=== PATIENT | female | born 1960 | race Caucasian/White ===

== ENCOUNTER 2021-07-08 11:32 | Observation (INO) | payer OTHER, SELFPAY ==
[2021-07-08] VITALS (8 sets, daily range): BP systolic 93–150; BP diastolic 55–82; PULSE 85–116; RESP 15–34; TEMP 36.6–36.8; O2SAT 95–100; BMI 35.2
--- NOTE | ~2021-07-08 | CT_ITS ---
EXAMINATION: CT BRAIN AND CT CERVICAL SPINE WITHOUT CONTRAST. CLINICAL INFORMATION: Seizure, fall hit head. Headache. COMPARISON: None TECHNIQUE: 5 mm thin axial and reformatted 2 mm thin sagittal coronal images of brain were obtained without contrast. Subsequently axial 3 mm thin and reformatted 2 mm thin sagittal and coronal images of cervical spine were obtained. DL 1232 FINDINGS: Brain: There is no acute intra-axial, extra-axial bleed, masses or midline shift. There is no acute infarction in evolution. Mulligan to white matter difference is maintained normal. The lateral ventricles are symmetrical in size and configuration without enlargement. Bone windows reveal no calvarial abnormality there is no scalp soft tissue abnormality. Bilateral paranasal sinuses and mastoid air cells are well-aerated. Cervical spine: On sagittal reconstructed images there is normal cervical lordosis. The vertebral heights, alignment and disc heights are normal no visible acute fracture, dislocation or subluxation seen. There is mild ventral spondylosis C4-C5, C5-C6 and C7-T1 disc levels. The craniovertebral junction and the C1-C2 alignment is normal. The prevertebral and paravertebral soft tissues are normal. The thyroid lobes are symmetric and normal. Bilateral submandibular and parotid glands are symmetrical and normal. The airway is widely patent. The lung apices are clear. CT/CT head/brain wo con IMPRESSION: No acute intracranial process seen. There is no acute fracture, dislocation or subluxation cervical spine. Mild cervical spondylosis.
--- NOTE | ~2021-07-08 | XR_ITS ---
EXAMINATION: XR RIBS, LEFT CLINICAL INFORMATION: Left-sided rib pain and cough. Covid positive. COMPARISON: None TECHNIQUE: 3 views of the left ribs were obtained. Chest 1 view FINDINGS: Chest: Lungs are clear. No consolidation, pneumothorax, or pleural effusion. The cardiomediastinal silhouette and pulmonary vasculature are normal. No gross bony abnormality seen. 2 views of left ribs reveal no visible fracture or bony abnormality. XR/XR ribs LT min 3V w CXR1V IMPRESSION: Unremarkable chest exam. Unremarkable left rib exam. No rib fractures seen.
--- NOTE | ~2021-07-08 | CT_ITS ---
EXAMINATION: CT BRAIN AND CT CERVICAL SPINE WITHOUT CONTRAST. CLINICAL INFORMATION: Seizure, fall hit head. Headache. COMPARISON: None TECHNIQUE: 5 mm thin axial and reformatted 2 mm thin sagittal coronal images of brain were obtained without contrast. Subsequently axial 3 mm thin and reformatted 2 mm thin sagittal and coronal images of cervical spine were obtained. DL 1232 FINDINGS: Brain: There is no acute intra-axial, extra-axial bleed, masses or midline shift. There is no acute infarction in evolution. Mulligan to white matter difference is maintained normal. The lateral ventricles are symmetrical in size and configuration without enlargement. Bone windows reveal no calvarial abnormality there is no scalp soft tissue abnormality. Bilateral paranasal sinuses and mastoid air cells are well-aerated. Cervical spine: On sagittal reconstructed images there is normal cervical lordosis. The vertebral heights, alignment and disc heights are normal no visible acute fracture, dislocation or subluxation seen. There is mild ventral spondylosis C4-C5, C5-C6 and C7-T1 disc levels. The craniovertebral junction and the C1-C2 alignment is normal. The prevertebral and paravertebral soft tissues are normal. The thyroid lobes are symmetric and normal. Bilateral submandibular and parotid glands are symmetrical and normal. The airway is widely patent. The lung apices are clear. CT/CT cervical spine wo con IMPRESSION: No acute intracranial process seen. There is no acute fracture, dislocation or subluxation cervical spine. Mild cervical spondylosis.
--- NOTE | 2021-07-08 11:43 | ECG_ITS ---
Test Reason : general medicine Blood Pressure : / mmHG Vent. Rate : 083 BPM Atrial Rate : 083 BPM P-R Int : 184 ms QRS Dur : 084 ms QT Int : 382 ms P-R-T Axes : 055 037 023 degrees QTc Int : 448 ms Normal sinus rhythm Normal ECG When compared with ECG of 24-APR-2006 19:35, No significant change was found Referred By: Florence Sutherland Electronically Signed By:NASH KATZ MD
--- NOTE | 2021-07-08 11:45 | ED.SEIZURE ---
HPI - Seizure General Chief Complaint: General Medical Stated Complaint: WITNESSED SEIZURE, POST ICTAL Time Seen by Provider: 07/08/21 11:42 Source: patient Mode of arrival: EMS Limitations: no limitations History of Present Illness HPI Narrative: 61-year-old female past medical history significant for epilepsy currently taking Keppra and Dilantin presents to the emergency department with an unwhitnessed seizure just prior to her arrival. According to EMS patient was showering and someone at home heard a noise they checked in on her and it appeared as though she was post ictal. Patient has a history of seizures, last seziure was around 1 year ago. Patient states that over the past few days she has noted that she has has upper respiratory symptoms and hasent been feeling well with cough, runny nose and malaise. She also notes her neighbor tested + for covid. She also states yesterday she fell, she is not sure why, but she also notes after she fell she was feeling weird and she hit her head on a mirror. She reports headache at this time and left sided rib pain. She denies chest pain, shortness of breath, weakness, abdominal, pain, incontenence, nausea, vomiting, fevers, chills. MD complaint: seizure Onset (ago): hour(s) (1) Description of Episode: loss of consciousness and post-event confusion Witnessed: No Trauma: Yes (hit head, reports left sided rib pain and small puncture to tongue) Seizure History: Yes Place: Home Associated symptoms: denies other symptoms Treatments prior to arrival: none Related Data Home Medications Medication Instructions Recorded Confirmed levetiracetam 1,000 mg tablet 1 tab PO BID 07/08/21 07/08/21 ondansetron 4 mg disintegrating 4 mg PO Q8H PRN 07/08/21 07/08/21 tablet phenytoin sodium extended 100 mg 300 mg PO BEDTIME 07/08/21 07/08/21 capsule Allergies Allergy/AdvReac Type Severity Reaction Status Date / Time Unable to Assess Allergy Unverified 07/08/21 11:42 Review of Systems Review of Systems: Constitutional : No Weight loss, No Fever, No Chills, No Fatigue, + Malaise ENT/Mouth : No sore throat, + Rhinorrhea, + puncture to tongue Eyes: No Eye Pain, No Swelling, No Redness Cardiovascular : No Chest Pain, No SOB, No Dyspnea on Exertion, No Orthopnea, No Edema, No Palpitations Respiratory : + Cough, No Sputum, No Wheezing Gastrointestinal : No Nausea, No Vomiting, No Diarrhea, No Constipation, No abdominal Pain, No Hematochezia, No Melena Genitourinary : No Dysuria, No Urinary Frequency, No Hematuria, Musculoskeletal : + joint pain (left ribs), No Myalgias, No Joint Swelling Skin : No Skin Lesions, No rash Neuro : No Weakness, No Numbness, No Dizziness, + Headache All other systems reviewed and are negative [facility] Past Medical History Attestation statement: The following information was validated with the patient. Source: old records reviewed and nursing notes reviewed Medical History (Updated 07/08/21 @ 12:48 by JOEL Morrow) Osteoporosis Seizure Social History Social History Advance Directives: No Advance Directives Information Provided: No Patient : No Physical Exam Vital Signs: Vital Signs: Last Vital Signs Temp 98 F 07/08/21 11:42 Pulse 111 H 07/08/21 15:54 Resp 19 07/08/21 15:54 BP 150/77 H 07/08/21 15:54 Pulse Ox 96 07/08/21 15:54 Body Mass Index 35.2 Appearance: Alert.? Oriented X3.? No acute distress.? Head: Normocephalic, atraumatic, no step-offs or deformities Eyes: Pupils equal, round and reactive to light.? ENT: Pharynx normal.?+ puncture to right side of tongue Neck: Normal inspection.? Neck supple.? CVS: Normal heart rate and rhythm.? Pulses normal.? Respiratory: No respiratory distress.? Breath sounds normal.? Abdomen: Soft and nontender.? Skin: Skin warm and dry.? Normal skin color.? Normal skin turgor.? Extremities: No lower extremity edema.? No calf ttp. 5/5 strength to bilateral upper and lower extremities Back/flank: No midline tenderness, no C-spine tenderness, full range of motion, no CVA tenderness bilaterally + tenderness to left sided ribs no overlying skin changes. Neuro: Oriented X 3.? No motor deficit.? No sensory deficit. 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 No electrolyte abnormalities. + COVID, due to patients cough a chest xray will be done to r/o PNA. Phenytoin, Levetiracetam pending. Time: 12:20 Reevaluation #2: Chest xray and rib xray normal. Phenytoin level low 3.2. Home dose will be given prior to DC Time: 13:21 Reevaluation #3: CT head/brain and c-spine negative. Lorazepam 1 mg IV will be given. And Phenytoin 300 mg home dose will be given here. At this time patient has been medically cleared. She has been advised to follow up with her neurologist. She has been advised not to drive. She should also follow up with her PCP and return to the ED with new or worsening symptoms.She is aware she tested positive for COVID-19. Levetiracetam level pending. Time: 14:30 Additional Reevaluation(s): Called into the room for patient seizing, 2mg IV lorazepam given. Dr. oHng at the bedside. Patients son mentions that she came here from [place] in February. And doesn't have a neurologist at this time. Son brought in her medication she is currently on 300 mg of phenytoin Po at bedtime and on 1000 mg of keppra PO BID. Will reach out to hospitalist for admission. Patient will be given 1000mg phenytoin IV at this time. 1630- Dr. Thompson will admit patient. MDM - Seizure MDM Narrative Medical decision making narrative: [id number] 61-year-old female past medical history significant for epilepsy currently taking Keppra and Dilantin presents to the emergency department with an unwitnessed seizure just prior to her arrival, dry non productive cough, left sided rib pain, headache and rhinnorhea. Patient has not missed doses of seizure meds. She states neighbor is + for covid. Denies fevers, chills, chest pain and alcohol use. Upon physical examination, patient is A&O X3, in no acute distress, no distracting injuries noted. There is a small puncture wound to right side of tongue and dried blood on patients lips. Lungs are clear. RRR. Abdomen soft non tender and non distended. Pain to palpation overlying left ribs, no overlying skin changes. Bilateral upper and lower extremities 5/5 strength full ROM. No focal neuro deficits. 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 Plan obtain xray of left ribs, basic labs, keppra and phenytoin level, mag, EKG, and CT of head/brain and c-spine. Seizure precautions in place. Medical Records Attestation: I reviewed the patient's medical records. Lab Data Attestation: I reviewed the patient's lab results. Result diagrams: 07/08/21 12:14 07/08/21 12:14 Labs: Lab Results 07/08/21 07/08/21 07/08/21 Range/Units 12:14 12:14 12:14 WBC 5.0 (4.8-10.8) X10*3/uL RBC 4.53 (4.20-5.50) X10*6/uL Hgb 13.8 (12.0-16.0) g/dl Hct 40.9 (37.0-47.0) % MCV 90.3 (80.0-98.0) fL MCH 30.5 (27.0-33.0) pg MCHC 33.7 (31.0-35.0) g/dl RDW 13.2 (11.0-16.0) % Plt Count TNP MPV TNP Immature Gran % (Auto) 0.4 (0.0-0.4) % Neut % (Auto) 76.5 H (45-73) % Lymph % (Auto) 17.5 L (20-40) % [place] % (Auto) 4.4 (2-11) % Eos % (Auto) 1.0 (0-4) % Baso % (Auto) 0.2 (0-2) % Lymph # (Auto) 0.9 L (1.2-4.9) X10*3/uL [place] # (Auto) 0.2 (0.1-1.2) X10*3/uL Eos # (Auto) 0.1 (0.0-0.4) X10*3/uL Baso # (Auto) 0.0 (0.0-0.2) X10*3/uL Abs Immat Gran (auto) 0.02 (0.00-0.03) X10*3/uL Absolute Neuts (auto) 3.8 (2.0-8.3) x10*3/uL Absolute Nucleated RBC 0.000 (0.0-0.012) X10*3/uL Nucleated RBC % (auto) 0.0 (0.0-0.2) /100WBC Smear Tech's Comments VERIFIED Sodium 140 (135-145) mmol/L Potassium 3.8 (3.3-5.1) mmol/L Chloride 106 (96-108) mmol/L Carbon Dioxide 25 (22-29) mmol/L Anion Gap 13 (12-20) BUN 12 (9-16) mg/dL Creatinine 0.80 (0.5-1.4) mg/dL Estim Creat Clear Calc 71.7 Estimated GFR > 60 Random Glucose 101 (60-115) mg/dL Calcium 9.2 (8.4-10.2) mg/dL Magnesium 2.0 (1.6-2.6) mg/dL Total Bilirubin 0.5 (0.0-1.0) mg/dL AST 19 (5-31) U/L ALT 24 (0-31) U/L Alkaline Phosphatase 58 (39-117) U/L Total Protein 7.4 (6.5-8.0) g/dL Albumin 4.1 (3.5-5.0) g/dL Phenytoin (10.0-20.0) ug/mL COVID-19 (SUSAN) Positive A (Negative) COVID-19 Clin Com See Note 07/08/21 Range/Units 12:14 WBC (4.8-10.8) X10*3/uL RBC (4.20-5.50) X10*6/uL Hgb (12.0-16.0) g/dl Hct (37.0-47.0) % MCV (80.0-98.0) fL MCH (27.0-33.0) pg MCHC (31.0-35.0) g/dl RDW (11.0-16.0) % Plt Count MPV Immature Gran % (Auto) (0.0-0.4) % Neut % (Auto) (45-73) % Lymph % (Auto) (20-40) % [place] % (Auto) (2-11) % Eos % (Auto) (0-4) % Baso % (Auto) (0-2) % Lymph # (Auto) (1.2-4.9) X10*3/uL [place] # (Auto) (0.1-1.2) X10*3/uL Eos # (Auto) (0.0-0.4) X10*3/uL Baso # (Auto) (0.0-0.2) X10*3/uL Abs Immat Gran (auto) (0.00-0.03) X10*3/uL Absolute Neuts (auto) (2.0-8.3) x10*3/uL Absolute Nucleated RBC (0.0-0.012) X10*3/uL Nucleated RBC % (auto) (0.0-0.2) /100WBC Smear Tech's Comments Sodium (135-145) mmol/L Potassium (3.3-5.1) mmol/L Chloride (96-108) mmol/L Carbon Dioxide (22-29) mmol/L Anion Gap (12-20) BUN (9-16) mg/dL Creatinine (0.5-1.4) mg/dL Estim Creat Clear Calc Estimated GFR Random Glucose (60-115) mg/dL Calcium (8.4-10.2) mg/dL Magnesium (1.6-2.6) mg/dL Total Bilirubin (0.0-1.0) mg/dL AST (5-31) U/L ALT (0-31) U/L Alkaline Phosphatase (39-117) U/L Total Protein (6.5-8.0) g/dL Albumin (3.5-5.0) g/dL Phenytoin 3.2 L* (10.0-20.0) ug/mL COVID-19 (SUSAN) (Negative) COVID-19 Clin Com ECG Data Attestation: I personally reviewed and interpreted this ECG as follows: ECG interpretation date: 07/08/21 ECG interpretation time: 12:31 Prior ECG tracings: available for review Interpretation: Ventricular rate 83, Pr normal, QRS normal, QT/QTC normal, EKG shows normal sinus rythem. No ALIA or t-wave inversions. No acute ischemia no acute changes when compared to 04/24/2006 Critical Care Time Critical Care Time Critical Care Time: Yes Total Critical Care Time: 45 Attestation: I attest to this time spent taking care of the patient Discharge Plan Discharge Clinical Impression: Seizure, COVID-19 Patient Disposition: Admitted As Inpatient
[2021-07-08 12:28] LABS: Basophils Percent Auto 0.2 % (0-2); MANUAL DIFF FLAG SCAN; Mean Corpuscular HGB Conc 33.7 g/dl (31.0-35.0); PLT CLUMP 1; Red Blood Count 4.53 X10*6/uL (4.20-5.50); Red Cell Distribution Width 13.2 % (11.0-16.0); SCAN SMEAR FLAG 1
[2021-07-08 12:30] LABS: COVID-19 Test Positive (Negative); Eosinophils Absolute Auto 0.1 X10*3/uL (0.0-0.4); Hematocrit 40.9 % (37.0-47.0); Hemoglobin 13.8 g/dl (12.0-16.0); Imm Gran Abs Auto 0.02 X10*3/uL (0.00-0.03); Imm Gran Pct Auto 0.4 % (0.0-0.4); Lymphocytes Absolute Auto 0.9 X10*3/uL (1.2-4.9); Lymphocytes Percent Auto 17.5 % (20-40); Mean Corpuscular Hemoglobin 30.5 pg (27.0-33.0); Mean Corpuscular Volume 90.3 fL (80.0-98.0); Monocytes Absolute Auto 0.2 X10*3/uL (0.1-1.2); Monocytes Percent Auto 4.4 % (2-11); Neutrophils Absolute Auto 3.8 x10*3/uL (2.0-8.3); Neutrophils Percent Auto 76.5 % (45-73)
[2021-07-08 12:38] LABS: Alanine Aminotransferase 24 U/L (0-31); Albumin Level 4.1 g/dL (3.5-5.0); Alkaline Phosphatase 58 U/L (39-117); Anion Gap 13 (12-20); Aspartate Amino Transferase 19 U/L (5-31); Bilirubin Total 0.5 mg/dL (0.0-1.0); Blood Urea Nitrogen 12 mg/dL (9-16); Calcium 9.2 mg/dL (8.4-10.2); Carbon Dioxide 25 mmol/L (22-29); Chloride 106 mmol/L (96-108); Creatinine Clr Calc Pharmacy 71.7; Estimated Glomerular Filt Rate > 60; Glucose Random 101 mg/dL (60-115); Potassium 3.8 mmol/L (3.3-5.1); Sodium 140 mmol/L (135-145); Total Protein 7.4 g/dL (6.5-8.0)
[2021-07-08 13:00] LABS: Phenytoin Dilantin 3.2 ug/mL (10.0-20.0)
[2021-07-08 13:18] LABS: SLIDE REVIEW VERIFIED
[2021-07-08] MEDS: ondansetron HCL 4 MG/2 ML VIAL IVPUSH (15:30)
[2021-07-08] MEDS: Phenytoin Sodium Extended 100 MG CAPSULE 300 MG PO (15:30)
[2021-07-08] MEDS: LORazepam 2 MG/ML VIAL IVPUSH (15:45)
--- NOTE | 2021-07-08 16:14 | PHA.MEDREC ---
Pharmacy Consult ? Medication Reconciliation Pharmacy has completed the medication reconciliation.
--- NOTE | 2021-07-08 20:09 | PM.IMHP ---
History of Present Illness Date of Service: 07/08/21 Chief Complaint: breakthrough seizure 61-year-old female with past medical history of seizure disorder who presents to the hospital after having a seizure episode home. Patient reports that she was taking a shower came out of the shower trying to get dressed and all of a sudden passed out. She has seizure episode, she bit her tongue, as well as lost bowel control. She was postictal on arrival to the ED. neighbor who was present during this episode noticed shaking and seizure-like activity. Patient reports that she has been having breakthrough seizure although she has been compliant with her medications not missing any doses. She is supposed to be on Dilantin and Keppra and reports compliance. She complaints of having a headache, as well as left below the breasts ribcage pain. She has no change in vision, no chest pain, no shortness of breath, no abdominal pain nausea or vomiting, no diarrhea constipation, no urinary symptoms. She reported to me that she has been feeling well although she reported to the ED staff that she has been having upper respiratory symptoms. Stable with no significant abnormal vitals Labs are significant for Dilantin level of 3.2, COVID positive CXR negative Patient will be admitted for further management Review of Systems Review of Systems: Yes all other systems are reviewed and are negative [facility] Medical History (Updated 07/09/21 @ 06:26 by Cameron Cochran MD) Hip fracture, right Osteoporosis Seizure Pertinent family history: Denies any family history Surgical History (Updated 07/09/21 @ 06:25 by Cameron Cochran MD) H/O: hysterectomy History of cholecystectomy History of hip surgery Social History Advance Directives: No Advance Directives Information Provided: No Patient : No Meds Allergies Allergy/AdvReac Type Severity Reaction Status Date / Time peanut Allergy Anaphylaxis Verified 07/08/21 21:58 Active Medications: Current Medications Pharmacy Consult (Consult Rx Perform Med Rec) 1 each MISCELLANE ONCE PRN PRN Reason: Consult order Home Medications Medication Instructions Recorded Confirmed Last Taken Type levetiracetam 1,000 mg tablet 1 tab PO BID 07/08/21 07/08/21 Unknown History ondansetron 4 mg disintegrating 4 mg PO Q8H PRN 07/08/21 07/08/21 Unknown History tablet phenytoin sodium extended 100 mg 300 mg PO BEDTIME 07/08/21 07/08/21 Unknown History capsule Physical Exam Vital Signs and Narrative: Vital Signs: Last Vital Signs Temp 98 F 07/08/21 17:42 Pulse 94 07/08/21 17:42 Resp 15 07/08/21 17:42 BP 123/63 07/08/21 17:42 Pulse Ox 100 07/08/21 17:42 Body Mass Index 35.2 Const: General: cooperative and no acute distress Orientation/consciousness: patient oriented x3 HENMT: Other: Dry blood around the mouth Eyes: General: appearance normal, both eyes and all related structures Pupils: Equal, round and reactive pupils present Resp: Effort & Inspection: normal respiratory effort Auscultation: clear to auscultation bilaterally Cardio: Rate: regular rate Rhythm: regular rhythm GI: Palpation (GI): Soft to palpation Auscultation: normal bowel sounds Skin: General skin exam: no rashes or lesions noted Neuro: General: patient oriented x3 Cranial nerves: Yes Equal, round and reactive pupils present Cognition (Neuro): normal cognition Extrem: General: Yes normal to inspection and Yes no pedal edema Results Labs CBC and Chem 7: 07/08/21 12:14 07/08/21 12:14 Labs: Laboratory Results - last 24 hr 07/08/21 07/08/21 07/08/21 12:14 12:14 12:14 MCV 90.3 MCH 30.5 MCHC 33.7 RDW 13.2 Plt Count TNP MPV TNP Immature Gran % (Auto) 0.4 Neut % (Auto) 76.5 H Lymph % (Auto) 17.5 L [place] % (Auto) 4.4 Eos % (Auto) 1.0 Baso % (Auto) 0.2 Lymph # (Auto) 0.9 L [place] # (Auto) 0.2 Eos # (Auto) 0.1 Baso # (Auto) 0.0 Abs Immat Gran (auto) 0.02 Absolute Neuts (auto) 3.8 Absolute Nucleated RBC 0.000 Nucleated RBC % (auto) 0.0 Smear Tech's Comments VERIFIED Anion Gap 13 Estim Creat Clear Calc 71.7 Estimated GFR > 60 Random Glucose 101 Calcium 9.2 Magnesium 2.0 Total Bilirubin 0.5 AST 19 ALT 24 Alkaline Phosphatase 58 Total Protein 7.4 Albumin 4.1 Phenytoin COVID-19 (SUSAN) Positive A COVID-19 Clin Com See Note 07/08/21 12:14 MCV MCH MCHC RDW Plt Count MPV Immature Gran % (Auto) Neut % (Auto) Lymph % (Auto) [place] % (Auto) Eos % (Auto) Baso % (Auto) Lymph # (Auto) [place] # (Auto) Eos # (Auto) Baso # (Auto) Abs Immat Gran (auto) Absolute Neuts (auto) Absolute Nucleated RBC Nucleated RBC % (auto) Smear Tech's Comments Anion Gap Estim Creat Clear Calc Estimated GFR Random Glucose Calcium Magnesium Total Bilirubin AST ALT Alkaline Phosphatase Total Protein Albumin Phenytoin 3.2 L* COVID-19 (SUSAN) COVID-19 Clin Com Imaging Radiologist's Impressions: Impressions Cervical Spine CT 07/08/21 11:43 IMPRESSION: No acute intracranial process seen. There is no acute fracture, dislocation or subluxation cervical spine. Mild cervical spondylosis. Head CT 07/08/21 11:43 IMPRESSION: No acute intracranial process seen. There is no acute fracture, dislocation or subluxation cervical spine. Mild cervical spondylosis. Ribs X-Ray 07/08/21 11:45 IMPRESSION: Unremarkable chest exam. Unremarkable left rib exam. No rib fractures seen. Assessment and Plan (1) Breakthrough seizure: Status: Acute (2) COVID-19: Status: Acute 61-year-old female with past medical history of seizure disorder presents to the hospital with breakthrough seizure # breakthrough seizure - possibly secondary to low Dilantin questionable compliance - patient herself reports compliance foot Dilantin level is low - will restart her home medications - consult neurology - seizure precautions # COVID-19 positive - hypoxia, no chest x-ray of of infiltrates - monitor for respiratory deterioration otherwise supportive measures DVT prophylaxis: Lovenox Quality Stroke Does the patient have a stroke diagnosis?: No VTE Prior VTE?: No VTE Risk Level:: Medical - moderate - high VTE Device Contraindication: Treatment Not Indicated VTE Drug Contraindication: N/A - Med Ordered
[2021-07-08] MEDS: levETIRAcetam 1,000 MG TABLET 1000 MG PO (21:57)
[2021-07-08] MEDS: Enoxaparin Sodium 40 MG/0.4 ML SYRINGE SUBCUT (21:57)
[2021-07-09 04:11] VITALS: BP 111/69; PULSE 96; RESP 16; TEMP 37.7; O2SAT 96
[2021-07-09] MEDS: Acetaminophen 325 MG TABLET 650 MG PO ×2 (04:24→13:56)
[2021-07-09 05:46] VITALS: PULSE 88; RESP 15
[2021-07-09 06:52] LABS: Basophils Percent Auto 0.1 % (0-2); Hematocrit 38.3 % (37.0-47.0); Hemoglobin 13.1 g/dl (12.0-16.0); Imm Gran Abs Auto 0.02 X10*3/uL (0.00-0.03); Imm Gran Pct Auto 0.3 % (0.0-0.4); Lymphocytes Absolute Auto 0.9 X10*3/uL (1.2-4.9); Lymphocytes Percent Auto 12.9 % (20-40); MANUAL DIFF FLAG SCAN; Mean Corpuscular HGB Conc 34.2 g/dl (31.0-35.0); Mean Corpuscular Hemoglobin 30.5 pg (27.0-33.0); Mean Corpuscular Volume 89.3 fL (80.0-98.0); Monocytes Absolute Auto 0.7 X10*3/uL (0.1-1.2); Monocytes Percent Auto 9.8 % (2-11); Neutrophils Absolute Auto 5.3 x10*3/uL (2.0-8.3); Neutrophils Percent Auto 76.9 % (45-73); PLT CLUMP 1; Red Blood Count 4.29 X10*6/uL (4.20-5.50); Red Cell Distribution Width 13.2 % (11.0-16.0); SCAN SMEAR FLAG 1
--- NOTE | 2021-07-09 07:12 | PC.NURSE ---
pt's aunt emiliana ([phone]) called and was updated on pt's status
[2021-07-09 07:15] LABS: SLIDE REVIEW VERIFIED; White Blood Count 6.8 X10*3/uL (4.8-10.8)
[2021-07-09 07:36] LABS: Anion Gap 13 (12-20); Blood Urea Nitrogen 10 mg/dL (9-16); Carbon Dioxide 25 mmol/L (22-29); Chloride 103 mmol/L (96-108); Creatinine Clr Calc Pharmacy 84.2; Estimated Glomerular Filt Rate > 60; Glucose Random 109 mg/dL (60-115); Potassium 3.6 mmol/L (3.3-5.1); Sodium 137 mmol/L (135-145)
[2021-07-09 07:55] VITALS: BP 95/47; PULSE 96; RESP 13; TEMP 37.1; O2SAT 99
[2021-07-09 08:03] LABS: Calcium 8.5 mg/dL (8.4-10.2)
[2021-07-09] MEDS: 0.9 % Sodium Chloride Flush 3 ML SYRINGE IVFLUSH (08:12)
[2021-07-09] MEDS: levETIRAcetam 1,000 MG TABLET 1000 MG PO (08:12)
[2021-07-09 08:13] VITALS: BP 102/46; PULSE 85; RESP 16; O2SAT 97
[2021-07-09 10:15] VITALS: BP 104/47; PULSE 90; RESP 12; TEMP 37.3; O2SAT 100
--- NOTE | 2021-07-09 10:46 | MHC.CM.PN ---
Attempted to meet with patient in regards to discharge planning. Nursing care currently being provided. Will attempt to meet again. Continue to monitor for d/c needs.
--- NOTE | 2021-07-09 10:56 | PC.NURSE ---
no seizure activity noted, pt amb (i) gait steady to bathroom and btb. dr. marlow at bedside, pt aware of plan of care for neuro md to eval.
--- NOTE | 2021-07-09 11:55 | PM.NEUROCN ---
History of Present Illness Data of Consult Service Date: 07/09/21 Primary Care Provider: Ulysses Bustamante MD [facility] Reason for consult: Seizure 61 years old woman with underlying history of epilepsy with generalized seizures. She has been maintained on Dilantin 600 mg a day for number of years and was seizure free. She had seen Dr. Jenkins in the past but not recently. Apparently she was in [place] aware and neurologist told her that Dilantin was probably not the best drug and she was trying to switch it from Dilantin to Keppra. Her dose of Dilantin was decreased to 300 mg a day and Keppra was started. With these doses she had a generalized seizure bringing her to emergency room with loss of bowel bladder control and tongue bite. When I saw her she was doing okay. Review of Systems Review of Systems: She was diagnosed with COVID. [facility] Past Medical History Medical History (Updated 07/09/21 @ 06:26 by Cameron Cochran MD) Hip fracture, right Osteoporosis Seizure Surgical History Surgical History (Updated 07/09/21 @ 06:25 by Cameron Cochran MD) H/O: hysterectomy History of cholecystectomy History of hip surgery Social History Social History Alcohol intake: never Patient Tobacco Use Status: Never used Tobacco Use of substances other than those prescribed or required for medical reasons: No Advance Directives: No Advance Directives Information Provided: No Patient : No Meds Allergies Allergy/AdvReac Type Severity Reaction Status Date / Time peanut Allergy Anaphylaxis Verified 07/08/21 21:58 Active Medications: Current Medications Acetaminophen (Acetaminophen 325 Mg Tablet) 650 mg PO Q6H PRN PRN Reason: Pain, Mild (Pain Scale 1-3) Last Admin: 07/09/21 04:24 Dose: 650 mg Documented by: Docusate Sodium (Docusate Sodium 100 Mg Capsule) 100 mg PO DAILY PRN PRN Reason: Constipation Enoxaparin Sodium (Enoxaparin Sodium 40 Mg/0.4 Ml Syringe) 40 mg SUBCUT Q24H [facility] Last Admin: 07/08/21 21:57 Dose: 40 mg Documented by: Levetiracetam (Levetiracetam 1,000 Mg Tablet) 1,000 mg PO BID [facility] Last Admin: 07/09/21 08:12 Dose: 1,000 mg Documented by: Ondansetron HCl (Ondansetron Hcl 4 Mg/2 Ml Vial) 4 mg IVPUSH Q8H PRN PRN Reason: Nausea and Vomiting Pharmacy Consult (Consult Rx Perform Med Rec) 1 each MISCELLANE ONCE PRN PRN Reason: Consult order Phenytoin Sodium (Phenytoin Sodium Extended 100 Mg Capsule) 300 mg PO BEDTIME SHERRY Sodium Chloride (0.9 % Sodium Chloride Flush 3 Ml Syringe) 3 ml IVFLUSH QSHIFT [facility] Last Admin: 07/09/21 08:12 Dose: 3 ml Documented by: Home Medications Medication Instructions Recorded Confirmed Last Taken Type levetiracetam 1,000 mg tablet 1 tab PO BID 07/08/21 07/08/21 Unknown History ondansetron 4 mg disintegrating 4 mg PO Q8H PRN 07/08/21 07/08/21 Unknown History tablet phenytoin sodium extended 100 mg 300 mg PO BEDTIME 07/08/21 07/08/21 Unknown History capsule Physical Exam Vital Signs: Vital Signs: Last Vital Signs Temp 99.1 F 07/09/21 10:15 Pulse 90 07/09/21 10:15 Resp 12 07/09/21 10:15 BP 104/47 L 07/09/21 10:15 Pulse Ox 100 07/09/21 10:15 Body Mass Index 35.2 Neuro: Other: Alert and awake with normal spontaneity of speech fluency comprehension and affect. Deep tendon reflexes were absent. Plantars were flat. There was no obvious focal weakness. Results Labs CBC & Chem 7: 07/09/21 06:39 07/09/21 06:39 Labs: Short CBC 07/08/21 07/09/21 Range/Units 12:14 06:39 WBC 5.0 6.8 (4.8-10.8) X10*3/uL Hgb 13.8 13.1 (12.0-16.0) g/dl Hct 40.9 38.3 (37.0-47.0) % Plt Count TNP TNP BMP 07/08/21 07/09/21 12:14 06:39 Sodium 140 137 Potassium 3.8 3.6 Chloride 106 103 Carbon Dioxide 25 25 BUN 12 10 Creatinine 0.80 0.68 Calcium 9.2 8.5 D Liver Function 07/08/21 Range/Units 12:14 Total Bilirubin 0.5 (0.0-1.0) mg/dL AST 19 (5-31) U/L ALT 24 (0-31) U/L Alkaline Phosphatase 58 (39-117) U/L Albumin 4.1 (3.5-5.0) g/dL Head CT without contrast did not reveal any significant abnormality. Assessment and Plan (1) Breakthrough seizure: Status: Acute Chronic generalized seizure disorder with breakthrough seizure probably due to change in medicine. My recommendation is to discontinue Dilantin and increase dose of Keppra to 1500 mg twice a day. She could follow Dr. Jenkins as an outpatient, which she wanted to do. Otherwise she should be advised to be careful and not drive and not to be involved in an activity that could put her life in danger such as swimming alone or sitting in a soaking tub alone. Procedures Date of Service Date of Service: 07/09/21
--- NOTE | 2021-07-09 13:13 | MHC.CM.PN ---
Met with patient in regards to discharge planning. Patient lives with her son, ambulates independently and had no services prior to coming to the hospital No services anticipated to be needed because patient is not homebound. PCP verified to be Dr Bustamante. Patient never received any Covid vaccines. Patient has a HCP at home and will attempt to obtain a copy. Obs notice explained and signed. Patient's son will transport patient home when medically stable. Patient tested positive for Covid this admission. Patient not experiencing any Covid symptoms at this time. Continue to monitor for d/c needs.
--- NOTE | 2021-07-09 13:49 | PM.DS ---
DS: Providers Provider Date of Service: 07/09/21 Date of admission: 07/08/21 20:28 Primary care physician: Ulysses Bustamante MD Consults: 07/08/21 21:18 Consult to Neurology Routine Consulting Provider: [facility] Reason for consultation: breakthrough seizure Has provider been notified: No DS: Diagnosis Discharge Diagnosis (1) Breakthrough seizure: Status: Acute DS: Summary Hospital Course Hospital Course: 61-year-old female with past medical history of seizure disorder who presents to the hospital after having a seizure episode home.? Patient reports that she was taking a shower came out of the shower trying to get dressed and all of a sudden passed out.? She has seizure episode, she bit her tongue, as well as lost bowel control.? She was postictal on arrival to the ED.? neighbor who was present during this episode noticed shaking and seizure-like activity.? Patient reports that she has been having breakthrough seizure although she has been compliant with her medications not missing any doses.? She is supposed to be on Dilantin and Keppra and reports compliance.? She complaints of having a headache, as well as left below the breasts ribcage pain.? She has no change in vision, no chest pain, no shortness of breath, no abdominal pain nausea or vomiting, no diarrhea constipation, no urinary symptoms.? She reported to me that she has been feeling well although she reported to the ED staff that she has been having upper respiratory symptoms. Stable with no significant abnormal vitals Labs are significant for Dilantin level of 3.2, COVID positive CXR negative Hospital course 61-year-old female with past medical history of seizure disorder presented to [facility] after an episode of generalized seizure with loss of bowel bladder control and tongue biting , in emergency room workup including a C-spine CT scan and head CT CT scan showed no acute abnormality, labs showed no electrolyte abnormality, patient was previously on Dilantin 600 mg a day for several years, few months ago she was in [place] and seen by a neurologist who placed her on Keppra and was weaning her down on Dilantin currently on Keppra 1000 mg b.i.d. and Dilantin 300 mg daily, her Dilantin level is 3, patient seen by Dr. Lipscomb and he recommending to discontinue Dilantin and place patient on Keppra 1500 mg twice daily, patient is now being discharged home and recommended to avoid driving, no swimming or soaking in tub alone has been recommended, she has been recommended to have outpatient follow-up with her primary neurologist Dr. Jenkins . Time Spent with Patient Time attestation: Total time spent providing and/or coordinating discharge services: Discharge coordination time: Greater than 30 minutes Quality: Stroke Does the patient have a stroke diagnosis?: No Physical Exam Vital Signs: Vital Signs: Last Vital Signs Temp 99.1 F 07/09/21 10:15 Pulse 90 07/09/21 10:15 Resp 12 07/09/21 10:15 BP 104/47 L 07/09/21 10:15 Pulse Ox 100 07/09/21 10:15 Body Mass Index 35.2 General awake alert x3,no acute distress. Neck supple, no JVD. CVS regular rate rhythm, good peripheral pulses Respiratory lungs clear to auscultation, no respiratory distress, no wheeze, no rhonchi. Gastrointestinal abdomen soft, nontender, bowel sounds audible Extremities no edema. Neuro nonfocal Skin no rash DS: Data Data Completed and Pending Labs on day of discharge: Laboratory Results - last 24 hr 07/09/21 07/09/21 06:39 06:39 WBC 6.8 RBC 4.29 Hgb 13.1 Hct 38.3 MCV 89.3 MCH 30.5 MCHC 34.2 RDW 13.2 Plt Count TNP MPV Not Reportable Immature Gran % (Auto) 0.3 Neut % (Auto) 76.9 H Lymph % (Auto) 12.9 L [place] % (Auto) 9.8 Eos % (Auto) 0.0 Baso % (Auto) 0.1 Lymph # (Auto) 0.9 L [place] # (Auto) 0.7 Eos # (Auto) 0.0 Baso # (Auto) 0.0 Abs Immat Gran (auto) 0.02 Absolute Neuts (auto) 5.3 Absolute Nucleated RBC 0.000 Nucleated RBC % (auto) 0.0 Smear Tech's Comments VERIFIED Sodium 137 Potassium 3.6 Chloride 103 Carbon Dioxide 25 Anion Gap 13 BUN 10 Creatinine 0.68 Estim Creat Clear Calc 84.2 Estimated GFR > 60 Random Glucose 109 Calcium 8.5 D Discharge Plan Discharge Patient Disposition: Home, Self-Care Discharge Diagnosis: Breakthrough seizure COVID-19 infection Referrals: Ulysses Bustamante MD [Primary Care Provider] - 07/22/21 1:15 pm (You have a follow up appointment with Dr. Bustamante on July 22 at 1:15 pm. ) Discharge Medications: New levetiracetam [Keppra] 500 mg tablet 500 mg PO BID Qty: 60 RF: 0 Continued ondansetron 4 mg Tablet,Disintegrating 4 mg PO Q8H PRN (Reason: Nausea) RF: 0 Changed levetiracetam 1,000 mg tablet 1,000 mg PO BID Qty: 0 RF: 0 Discontinued phenytoin sodium extended 100 mg Capsule 300 mg PO BEDTIME RF: 0 Discharge Orders: Discharge Order (Routine); Ordered 07/09/21 Ordered By: Rian Kumari Diet: advance to usual diet Activity on Discharge: No driving Stand Alone Forms: Patient Portal Discharge page Care Plan Goals: In regard to breakthrough seizures stopped taking Dilantin and increased dose of Keppra to 1500 mg twice daily do not drive a car, no swimming alone or sitting in a soaking tub alone Health Concerns: Return to check to [facility] with any recurrent episodes of seizure Plan of Treatment: Outpatient follow-up with Dr. Jenkins in next 1-2 weeks call for appointment Assessment: As above Patient Instructions: Recurrent Seizures in Adults (ED), Epilepsy in Older Adults (ED), COVID-19 (Coronavirus Disease 2019) (ED)
[2021-07-09 13:53] VITALS: BP 123/66; PULSE 92; RESP 16; O2SAT 97
[2021-07-15 08:51] LABS: Levetiracetam Keppra 10.2 mcg/mL (12.0-46.0)
== END 2021-07-09 14:15 | disposition home or self-care (01) ==
LOC: HO.ED 15:52 → HO.EDOVER 07-09 07:17
PROVIDERS: Physician Assistant; Admitting Provider Internal Medicine; Emergency Provider Emergency Medicine Emergency Medical Services; PCP Internal Medicine; Visit Provider Hospitalist
DX: G40.919 Epilepsy, unspecified, intractable, without status epilepticus (principal); R15.9 Full incontinence of feces; R39.81 Functional urinary incontinence; M47.812 Spondylosis without myelopathy or radiculopathy, cervical region; Z20.822 Contact with and (suspected) exposure to COVID-19
CPT/HCPCS: 36415; 70450; 71101; 72125; 80048; 80053; 80177; 80185; 83735; 85025; 87635; 93005; 99219; 99285; J1650; J2060; J2405

== ENCOUNTER 2021-08-12 08:32 | Outpatient (REF) | payer OTHER, SELFPAY ==
[2021-08-12 12:54] LABS: Phenytoin Dilantin 25.5 ug/mL (10.0-20.0)
== END 2021-08-12 08:33 | disposition home or self-care (01) ==
LOC: HO.HMGCLDS 08:32
PROVIDERS: PCP Internal Medicine; Visit Provider Psychiatry & Neurology Neurology
DX: G40.909 Epilepsy, unspecified, not intractable, without status epilepticus (principal); Z79.899 Other long term (current) drug therapy
CPT/HCPCS: 36415; 80185

== ENCOUNTER 2021-08-24 09:15 | Outpatient (REF) | payer OTHER, SELFPAY ==
[2021-08-24 12:37] LABS: Phenytoin Dilantin 25.3 ug/mL (10.0-20.0)
== END 2021-08-24 09:16 | disposition home or self-care (01) ==
LOC: HO.HMGCLDS 09:15
PROVIDERS: PCP Internal Medicine; Visit Provider Psychiatry & Neurology Neurology
DX: G40.909 Epilepsy, unspecified, not intractable, without status epilepticus (principal); Z79.899 Other long term (current) drug therapy
CPT/HCPCS: 36415; 80185

== ENCOUNTER 2021-09-02 09:19 | Outpatient (REF) | payer OTHER, SELFPAY ==
[2021-09-02 11:58] LABS: Basophils Percent Auto 0.5 % (0-2); Eosinophils Percent Auto 0.7 % (0-4); Hematocrit 43.9 % (37.0-47.0); Hemoglobin 14.5 g/dl (12.0-16.0); Imm Gran Abs Auto 0.01 X10*3/uL (0.00-0.03); Imm Gran Pct Auto 0.2 % (0.0-0.4); Lymphocytes Absolute Auto 1.8 X10*3/uL (1.2-4.9); Lymphocytes Percent Auto 42.9 % (20-40); MANUAL DIFF FLAG SCAN; Mean Corpuscular Hemoglobin 29.9 pg (27.0-33.0); Mean Corpuscular Volume 90.5 fL (80.0-98.0); Monocytes Absolute Auto 0.3 X10*3/uL (0.1-1.2); Monocytes Percent Auto 7.9 % (2-11); Neutrophils Percent Auto 47.8 % (45-73); PLT CLUMP 1; Red Blood Count 4.85 X10*6/uL (4.20-5.50); Red Cell Distribution Width 13.4 % (11.0-16.0); SCAN SMEAR FLAG 1
[2021-09-02 12:13] LABS: Alanine Aminotransferase 16 U/L (0-31); Albumin Level 4.3 g/dL (3.5-5.0); Alkaline Phosphatase 50 U/L (39-117); Anion Gap 15 (12-20); Aspartate Amino Transferase 15 U/L (5-31); Bilirubin Direct 0.2 mg/dL (0.0-0.5); Bilirubin Total 0.5 mg/dL (0.0-1.0); Blood Urea Nitrogen 11 mg/dL (9-16); Carbon Dioxide 26 mmol/L (22-29); Chloride 107 mmol/L (96-108); Cholesterol 281 mg/dL; Estimated Glomerular Filt Rate > 60; Glucose Fasting 87 mg/dL (60-99); HDL Cholesterol 54 mg/dL; LDL Cholesterol Calculated 206 mg/dl; Potassium 4.9 mmol/L (3.3-5.1); Sodium 143 mmol/L (135-145); Total Protein 7.9 g/dL (6.5-8.0); Triglycerides 106 mg/dL
[2021-09-02 12:15] LABS: SLIDE REVIEW VERIFIED; White Blood Count 4.2 X10*3/uL (4.8-10.8)
[2021-09-02 12:43] LABS: Phenytoin Dilantin 25.8 ug/mL (10.0-20.0)
== END 2021-09-02 09:20 | disposition home or self-care (01) ==
LOC: HO.HMGCLDS 09:19
PROVIDERS: Absent Provider Psychiatry & Neurology Neurology; PCP Internal Medicine; Visit Provider Internal Medicine
DX: R53.83 Other fatigue (principal); E78.5 Hyperlipidemia, unspecified; G40.909 Epilepsy, unspecified, not intractable, without status epilepticus
CPT/HCPCS: 36415; 80051; 80061; 80076; 80185; 82565; 82947; 84520; 85025

== ENCOUNTER 2021-09-11 09:45 | Outpatient (REF) | payer OTHER, SELFPAY ==
[2021-09-11 12:41] LABS: Phenytoin Dilantin 15.3 ug/mL (10.0-20.0)
== END 2021-09-11 09:46 | disposition home or self-care (01) ==
LOC: HO.HMGCLDS 09:45
PROVIDERS: Psychiatry & Neurology Neurology; Visit Provider Internal Medicine
DX: G40.909 Epilepsy, unspecified, not intractable, without status epilepticus (principal)
CPT/HCPCS: 36415; 80185

== ENCOUNTER 2021-09-21 12:08 | Outpatient (REF) | payer OTHER, SELFPAY ==
--- NOTE | ~2021-09-21 | MM_ITS ---
EXAMINATION: MM SCREENING DIGITAL BREAST TOMOSYNTHESIS, BILATERAL CLINICAL INFORMATION: Screening. Asymptomatic. The prior [id number] mammography currently unavailable. Family history breast cancer, mother. The lifetime risk of breast cancer based on the Tyrer-Cuzick Model is 13%. COMPARISON: None. TECHNIQUE: Digital breast tomosynthesis is performed in both the craniocaudal and mediolateral oblique views along with computer-aided detection (CAD). Synthesized 2D images are generated from the tomosynthesis. FINDINGS: There are scattered areas of fibroglandular density (ACR BI-RADS breast composition Category b). There are no significant masses, abnormal calcifications, or other abnormalities. The axilla and skin contours are unremarkable. MM/MM tomosynthesis screening BI IMPRESSION: No mammographic evidence of malignancy. ASSESSMENT: BI-RADS 1: Negative RECOMMENDATION: 1. Routine annual mammography screening. 2. Radiology department staff will attempt to retrieve prior [id number] mammography to allow for comparison in an addendum report. This patient's information was entered into a reminder system with a target due date for their next mammogram.
== END 2021-09-21 12:09 | disposition home or self-care (01) ==
LOC: HO.MAMMO 12:08
PROVIDERS: PCP Internal Medicine; Visit Provider Internal Medicine
DX: Z12.31 Encounter for screening mammogram for malignant neoplasm of breast (principal)
CPT/HCPCS: 77063; 77067

== ENCOUNTER 2021-10-01 13:15 | Outpatient (REF) | payer OTHER, SELFPAY ==
--- NOTE | ~2021-10-01 | MM_ITS ---
EXAMINATION: BONE DENSITOMETRY CLINICAL INDICATION: Postmenopausal. COMPARISON: None (current study represents initial baseline exam). TECHNIQUE: Using a StatusNet DXA System (software version: 13.1) manufactured by [employer], dual-energy x-ray absorptiometry was performed of the lumbar spine and left hip. The images are of good technical quality. Summary results are attached. FINDINGS: AP SPINE L1-L4: BMD 0.861 g/cm2, Z-score -2.2, T-score -2.7, osteoporosis. LEFT FEMUR, NECK: BMD 0.589 g/cm2, Z-score -2.4, T-score -3.2, osteoporosis. LEFT FEMUR, TOTAL: BMD 0.604 g/cm2, Z-score -2.8, T-score -3.2, osteoporosis. IDENTIFIED RISK FACTORS: Osteoporosis, height loss, history of fracture (adult). Early menopause, secondary osteoporosis, anticonvulsant. HISTORY OF FRACTURE: Multiple, extremities. MEDICATIONS: Calcium supplements or multivitamin, vitamin D. MM/XR DEXA axial skeleton IMPRESSION: 1. DIAGNOSIS: Osteoporosis based on the lowest T-score value of -3.2 in the femoral neck and total femur applying World Health Organization criteria. 2. 10-YEAR FRACTURE RISK PREDICTION, FRAX: According to the guidelines, FRAX calculation should only be performed on patients in the osteopenia bone density category. Therefore, FRAX was not performed on this patient. 3. Treatment Recommendations: NOF guidelines recommend consideration for treatment in postmenopausal women and men age 50 and older presenting with the following: -A hip or vertebral (clinical or morphometric) fracture. -T-score less than or equal to -2.5 at the femoral neck or spine after appropriate evaluation to exclude secondary causes. -Low bone mass at the hip or spine and a 10-year fracture probability by FRAX of greater than or equal to 3% for hip fracture or greater than or equal to 20% for major osteoporotic fracture based on the [place] adapted WHO algorithm. 4. Other Recommendations: All treatment decisions require clinical judgment and consideration of individual patient factors, including patient preferences, comorbidities, previous drug use, risk factors not captured in the FRAX model (e.g. frailty, falls, vitamin D deficiency, increased bone turnover, interval significant decline in bone density) and possible under or overestimation of fracture risk by FRAX. Additional medical evaluation for secondary cause of low bone mineral density may be appropriate. FUTURE SCAN RECOMMENDATION: People with diagnosed cases of osteoporosis or at high risk for fracture should have regular bone mineral density tests. For patients eligible for Medicare, routine testing is allowed once every 2 years. The testing frequency can be increased to one year for patients who have rapidly progressing disease, those who are receiving or discontinuing medical therapy to restore bone mass, or have additional risk factors.
== END 2021-10-01 13:16 | disposition home or self-care (01) ==
LOC: HO.MAMMO 13:15
PROVIDERS: Visit Provider Internal Medicine
DX: Z13.820 Encounter for screening for osteoporosis (principal); M81.0 Age-related osteoporosis without current pathological fracture; Z78.0 Asymptomatic menopausal state; Z79.899 Other long term (current) drug therapy
CPT/HCPCS: 77080

== ENCOUNTER 2021-12-10 10:36 | Outpatient (REF) | payer OTHER, SELFPAY ==
[2021-12-10 14:02] LABS: Alanine Aminotransferase 16 U/L (0-31); Alkaline Phosphatase 61 U/L (39-117); Aspartate Amino Transferase 15 U/L (5-31); Bilirubin Direct 0.2 mg/dL (0.0-0.5); Bilirubin Total 0.5 mg/dL (0.0-1.0); Cholesterol 179 mg/dL; HDL Cholesterol 64 mg/dL; LDL Cholesterol Calculated 105 mg/dl; Total Protein 7.2 g/dL (6.5-8.0); Triglycerides 52 mg/dL
[2021-12-10 15:03] LABS: Phenytoin Dilantin 9.2 ug/mL (10.0-20.0)
== END 2021-12-10 10:37 | disposition home or self-care (01) ==
LOC: HO.HMGCLDS 10:36
PROVIDERS: Absent Provider Psychiatry & Neurology Neurology; PCP Internal Medicine; Visit Provider Internal Medicine
DX: E78.00 Pure hypercholesterolemia, unspecified (principal)
CPT/HCPCS: 36415; 80061; 80076; 80185

== ENCOUNTER 2021-12-30 12:14 | Day surgery (SDC) | payer OTHER, SELFPAY ==
[2021-12-24 15:04] VITALS: BMI 38.2
--- NOTE | 2021-12-29 09:38 | HO.ANESPROP2 ---
Documented by User: Zenia Monsalve NP 12/29/21 09:42 HPI - Anesthesia Eval Consult details Narrative: 61yo F for Upper Endoscopy and Colonoscopy PMF Active Problems Active Problems: All Active Problems (Updated 12/24/21 @ 14:44 by Olivia Payan RN) COVID-19 (Acute) Breakthrough seizure (Acute) Past Medical History Medical History Elevated cholesterol GERD (gastroesophageal reflux disease) Hip fracture, right History of pulmonary embolus (PE) Osteoporosis Seizure Wrist fracture, bilateral Surgical History Surgical History H/O: hysterectomy History of cholecystectomy History of colonoscopy History of hip surgery Social History Social History Alcohol intake: never Patient Tobacco Use Status: Never used Tobacco Use of substances other than those prescribed or required for medical reasons: No Are you DNR?: No Advance Directives: No Advance Directives Information Provided: Yes Advance Directives on File: No Recently lost weight without trying: No Nutrition Risks: No Nutritional Risk Patient : No service: No Current occupational status: unemployed Meds Allergies Allergy/AdvReac Type Severity Reaction Status Date / Time chocolate flavor Allergy Unknown Verified 12/24/21 14:50 peanut Allergy Anaphylaxis Verified 07/08/21 21:58 Home Medications Medication Instructions Recorded Confirmed Last Taken Type ondansetron 4 mg disintegrating 4 mg PO Q8H PRN 07/08/21 12/24/21 Unknown History tablet alendronate 70 mg tablet 1 tab PO QWEEK 12/24/21 12/24/21 Unknown History atorvastatin 20 mg tablet 1 tab PO DAILY 12/24/21 12/24/21 Unknown History levetiracetam 500 mg tablet 500 mg PO BEDTIME 12/24/21 12/30/21 12/30/21 06:00 History (Keppra) omeprazole 20 mg capsule,delayed 40 mg PO DAILY 12/24/21 12/24/21 Unknown History release phenytoin sodium extended 100 mg 200 mg PO BID 12/24/21 12/30/21 Unknown History capsule (Dilantin Extended) Exam Exam Date and Time: December 29, 2021 0938 Height,Weight and Vital Signs: Height 5 ft Weight 88.904 kg Pertinent Lab Results Pertinent Lab Results: Laboratory Tests 09/02/21 09/02/21 09:29 09:29 WBC 4.2 L Hgb 14.5 Hct 43.9 Plt Count TNP Sodium 143 Potassium 4.9 D Chloride 107 Carbon Dioxide 26 BUN 11 Creatinine 0.73 Narrative Narrative: EKG 06/2021 Vent. Rate : 083 BPM ? ? Atrial Rate : 083 BPM ?? P-R Int : 184 ms? QRS Dur : 084 ms ? ? QT Int : 382 ms ? ? ? P-R-T Axes : 055 037 023 degrees ?? QTc Int : 448 ms ? Normal sinus rhythm Normal ECG When compared with ECG of 24-APR-2006 19:35, No significant change was found Assessment and Plan Assessment Anesthesia Assessment: Chart Reviewed Documented by User: Lia Chun MD 12/30/21 14:05 PMF Past Medical History Medical History Elevated cholesterol GERD (gastroesophageal reflux disease) Hip fracture, right History of pulmonary embolus (PE) Osteoporosis Seizure Wrist fracture, bilateral Surgical History Surgical History H/O: hysterectomy History of cholecystectomy History of colonoscopy History of hip surgery History of Problems with Anesthesia: No Social History Social History Alcohol intake: never Patient Tobacco Use Status: Never used Tobacco Use of substances other than those prescribed or required for medical reasons: No Are you DNR?: No Advance Directives: No Advance Directives Information Provided: Yes Advance Directives on File: No Recently lost weight without trying: No Nutrition Risks: No Nutritional Risk Patient : No service: No Current occupational status: unemployed Meds Allergies Allergy/AdvReac Type Severity Reaction Status Date / Time chocolate flavor Allergy Unknown Verified 12/24/21 14:50 peanut Allergy Anaphylaxis Verified 07/08/21 21:58 Home Medications Medication Instructions Recorded Confirmed Last Taken Type ondansetron 4 mg disintegrating 4 mg PO Q8H PRN 07/08/21 12/24/21 Unknown History tablet alendronate 70 mg tablet 1 tab PO QWEEK 12/24/21 12/24/21 Unknown History atorvastatin 20 mg tablet 1 tab PO DAILY 12/24/21 12/24/21 Unknown History levetiracetam 500 mg tablet 500 mg PO BEDTIME 12/24/21 12/30/21 12/30/21 06:00 History (Keppra) omeprazole 20 mg capsule,delayed 40 mg PO DAILY 12/24/21 12/24/21 Unknown History release phenytoin sodium extended 100 mg 200 mg PO BID 12/24/21 12/30/21 Unknown History capsule (Dilantin Extended) Exam Airway Mallampati Class: II TM Dist: >3cm Neck ROM: Full Loose/Missing/Broken Teeth: Yes and Upper Heart: RRR Lungs: CTA Assessment and Plan Assessment Anesthesia Assessment: Anesthesia Plan Discussed Final Anesthetic Review History of Problems with Anesthesia: No NPO: Yes ASA Class: III Final Preanesthetic Review: Meds/Allgs Chart Reviewed, Consent Obtained/Reviewed and Anes Risks/Benef Reviewed Patient Risk: Intermediate Procedure Risk: Intermediate Anesthetic Plan Anesthetic Plan: MAC: Disposition: Standard PACU
[2021-12-30 13:10] VITALS: BP 137/80; PULSE 72; RESP 18; TEMP 35.9; O2SAT 99
[2021-12-30] MEDS: Lactated Ringers 1,000 ML 100 ML IVCONT (13:17)
--- NOTE | 2021-12-30 14:04 | MHC.SHP ---
Pre-Procedural Eval Section A Date of Service: 12/30/21 The patient is an INPATIENT: No Changes since office visit: No Cold of Flu in the past 2 weeks, No New Medical Problems, No Changes in Medication and No Patient answered all questions The History & Physical has been completed within 30 days and I have reviewed it.: Yes Section B Chief Complaint: reflux disease,screening Allergies: Allergies Allergy/AdvReac Type Severity Reaction Status Date / Time chocolate flavor Allergy Unknown Verified 12/24/21 14:50 peanut Allergy Anaphylaxis Verified 07/08/21 21:58 Plan I have reviewed the history and physical and performed a pertinent physical examination on my patient. No changes have occurred unless specified.
[2021-12-30 14:54] VITALS: BP 106/72; PULSE 88; RESP 16; TEMP 36.6; O2SAT 97
--- NOTE | 2021-12-30 14:58 | P.BOP_ITS ---
Brief Operative Note Date of Service: 12/30/21 Pre-op diagnosis: gerd,screening Post-op diagnosis: same Procedure: egd/colon Surgeon: Keagan Bhagat Anesthesia: MAC Was an Senior Telecommunications Specialist used for this Procedure?: No Estimated blood loss (mL): 5 Pathology: other Condition: stable Disposition: PACU
[2021-12-30 15:09] VITALS: BP 120/80; PULSE 77; RESP 16; TEMP 36.6; O2SAT 100
--- NOTE | 2021-12-31 02:40 | OP_ITS ---
SURGEON: Keagan Bhagat MD INDICATIONS: 1. Gastroesophageal reflux disease. 2. Colon cancer screening. PREOPERATIVE DIAGNOSIS: POSTOPERATIVE DIAGNOSIS: PROCEDURE PERFORMED: Upper endoscopy with biopsy, colonoscopy to the terminal ileum. ESTIMATED BLOOD LOSS: COMPLICATIONS: ANESTHESIA: ASSISTANTS: SPECIMENS: MEDICATIONS: Monitored anesthesia care. DESCRIPTION OF PROCEDURE: History and physical performed. The risks and benefits of the procedure were explained to the patient. Informed consent was obtained. The patient was placed in the left lateral decubitus position. The Olympus video gastroscope was introduced into the esophagus, stomach, and duodenum. Examination was performed. The scope was removed. She was repositioned for colonoscopy. Digital rectal exam was performed and was found to be normal. The Olympus pediatric video colonoscope was introduced in the rectum and advanced to the cecum without difficulty. The cecum was identified by transillumination, palpation, and identification of the ileocecal valve. Examination was performed. The scope was removed. She tolerated the procedure well and was taken to the recovery room in stable condition. FINDINGS: Upper endoscopy: 1. Esophagus: The esophagus was normal. There was a small sliding hiatal hernia. Biopsies were obtained from the EG junction. 2. Stomach: The stomach showed no evidence of masses, ulcers, or polyps. Antral biopsies were obtained to rule out H pylori. 3. Duodenum: The bulb and second portion were normal except in the bulb where there was an approximately 15 x 20 mm broad-based polypoid lesion consistent with a lipoma. The lesion had a yellowish appearance and showed a positive pillow sign. Two biopsies were obtained from the lesion. Colonoscopy: The terminal ileum was normal. The visualized colonic mucosa was within normal limits without evidence of masses or ulcers. No polyps were identified. There was some adherent stool, which was washed and suctioned. This did limit to see exam slightly. However, the exam was considered sufficient for screening for polyps. There was moderate sigmoid diverticulosis. Retroflexed examination showed small internal hemorrhoids. IMPRESSION: 1. Gastroesophageal reflux disease. 2. Duodenal lipoma. 3. Normal colonoscopy. 4. Diverticulosis. RECOMMENDATION: 1. Follow up the biopsy results. 2. Continue proton pump inhibitor for good control of reflux. 3. Repeat colonoscopy is recommended in 10 years for average risk individuals. MD ERIC Varghese/BENITOL / [id number] NAYANA
== END 2021-12-30 15:44 | disposition home or self-care (01) ==
PROVIDERS: PCP Internal Medicine; Visit Provider Internal Medicine Gastroenterology
PROC: (CPT 45378; principal; 2021-12-30 13:40)
DX: Z12.11 Encounter for screening for malignant neoplasm of colon (principal); K57.30 Diverticulosis of large intestine without perforation or abscess without bleeding; K64.8 Other hemorrhoids; K21.9 Gastro-esophageal reflux disease without esophagitis; K44.9 Diaphragmatic hernia without obstruction or gangrene; D17.5 Benign lipomatous neoplasm of intra-abdominal organs; E78.00 Pure hypercholesterolemia, unspecified; G40.909 Epilepsy, unspecified, not intractable, without status epilepticus; M81.0 Age-related osteoporosis without current pathological fracture; Z79.899 Other long term (current) drug therapy
CPT/HCPCS: 45378; 43239; 88305; 88342; J3010

== ENCOUNTER 2022-01-13 10:33 | Outpatient (REF) | payer OTHER, SELFPAY ==
[2022-01-13 16:34] LABS: Phenytoin Dilantin 19.3 ug/mL (10.0-20.0)
== END 2022-01-13 10:34 | disposition home or self-care (01) ==
LOC: HO.WFDLDS 10:33
PROVIDERS: Visit Provider Psychiatry & Neurology Neurology
DX: G40.909 Epilepsy, unspecified, not intractable, without status epilepticus (principal)
CPT/HCPCS: 36415; 80185

== ENCOUNTER 2022-03-23 14:16 | Outpatient (REF) | payer OTHER, MEDICAID, SELFPAY ==
[2022-03-23 15:52] LABS: Urine Cytology See Pathology rpt
== END 2022-03-23 14:17 | disposition home or self-care (01) ==
LOC: HO.LAB 14:16
DX: R31.29 Other microscopic hematuria (principal)
CPT/HCPCS: 88112; 99202

== ENCOUNTER 2022-07-19 09:21 | Outpatient (REF) | payer OTHER, SELFPAY ==
--- NOTE | ~2022-07-19 | CT_ITS ---
EXAMINATION: CT HEAD WITHOUT CONTRAST CLINICAL INFORMATION: Seizure disorder. COMPARISON: Head CT 07/08/2021. TECHNIQUE: Contiguous axial imaging was performed from the skull base to vertex without intravenous administration of contrast. This CT examination was performed using dose optimization techniques as appropriate, variously including the following: *Automated exposure control *Adjustment of mA and/or kV according to patient size (this includes techniques or standardized protocols for targeted exams where dose is matched to indication/reason for exam; i.e. extremities or head) *Use of iterative reconstruction technique DLP: 751 mGy-cm. FINDINGS: There is no intracranial hemorrhage, large infarction, or mass lesion. There is no extra-axial collection. The ventricles are normal in size and configuration without evidence of hydrocephalus. The floor of the sella is thin/dehiscent but stable. The visualized paranasal sinuses and mastoid air cells are clear. CT/CT head/brain wo IV con IMPRESSION: No acute intracranial abnormality.
== END 2022-07-19 09:22 | disposition home or self-care (01) ==
LOC: HO.CT 09:21
PROVIDERS: Visit Provider Psychiatry & Neurology Neurology
DX: G40.909 Epilepsy, unspecified, not intractable, without status epilepticus (principal); J32.9 Chronic sinusitis, unspecified
CPT/HCPCS: 70450

== ENCOUNTER 2022-08-12 09:54 | Outpatient (REF) | payer OTHER, SELFPAY ==
--- NOTE | ~2022-08-12 | FL_ITS ---
EXAMINATION: FL BARIUM SWALLOW CLINICAL INFORMATION: Dysphagia COMPARISON: None TECHNIQUE: Barium swallow examination is performed using fluoroscopic evaluation in addition to multiple fluoroscopic spot views. The patient is imaged both upright and prone and using both thick and thin sulfate along with effervescent granules. A 13 mm barium tablet was also utilized. Fluoroscopy time: 1.6 minutes DAP: 14.144 Gycm2 Images: 65 FINDINGS: There is normal oral bolus control and transfer. Normal posterior tilt of the epiglottis with elevation of the hyoid. Mild cricopharyngeal prominence. 13 mm barium tablet swallowed without difficulty. Slight delay in passage at the gastroesophageal junction with clearance after additional swallows. The esophagus was normal in course, caliber, and contour. There was normal distensibility with no fixed segment of narrowing. No focal mucosal abnormality was identified. No significant esophageal dysmotility was observed. Contrast passed freely across the gastroesophageal junction into the stomach. No significant hiatal hernia. Mild gastroesophageal reflux was observed. FL/FL barium swallow IMPRESSION: Mild gastroesophageal reflux noted. Small cricopharyngeal bar. Otherwise unremarkable esophagram.
== END 2022-08-12 09:55 | disposition home or self-care (01) ==
LOC: HO.XRAY 09:54
PROVIDERS: Visit Provider Internal Medicine Gastroenterology
DX: R13.10 Dysphagia, unspecified (principal)
CPT/HCPCS: 74220

== ENCOUNTER 2022-09-02 12:39 | Outpatient (REF) | payer OTHER, SELFPAY ==
--- NOTE | ~2022-09-02 | XR_ITS ---
EXAMINATION: XR HIP, RIGHT CLINICAL INFORMATION: Pain. COMPARISON: None available. TECHNIQUE: AP and frog-leg lateral views of the right hip. FINDINGS: Bony alignment and mineralization are normal. There is mild narrowing of the superolateral right acetabular joint space. There is mild subchondral sclerosis of the right acetabular roof. There is peripheral osteophyte formation of the articular surfaces of the right hip. 3 intact orthopedic screws are applied to the right femoral neck. There is a healed right femoral neck fracture, with bony remodeling. No acute fracture or dislocation is seen. The right femoral head appears smooth. The soft tissue planes are unremarkable. XR/XR hip RT min 2V IMPRESSION: Posttraumatic and postoperative changes are seen of the right hip. No acute fracture or dislocation is seen. 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
== END 2022-09-02 12:40 | disposition home or self-care (01) ==
LOC: HO.HMGCX 12:39
PROVIDERS: PCP Internal Medicine; Visit Provider Internal Medicine
DX: M25.551 Pain in right hip (principal)
CPT/HCPCS: 73502

== ENCOUNTER 2022-10-25 14:56 | Outpatient (REF) | payer OTHER, SELFPAY ==
--- NOTE | ~2022-10-25 | XR_ITS ---
EXAMINATION: XR SACRUM AND COCCYX CLINICAL INFORMATION: Fall. Pain. COMPARISON: None TECHNIQUE: 2 views of the sacrum and coccyx. FINDINGS: No fracture of sacrum or coccyx. Sacroiliac joints are normal. 3. Orthopedic screws partially visualized in the right femoral head and neck. XR/XR sacrum coccyx min 2V IMPRESSION: No acute abnormality of sacrum or coccyx.
--- NOTE | ~2022-10-25 | XR_ITS ---
EXAMINATION: XR RIBS, LEFT CLINICAL INFORMATION: Fall with left rib pain COMPARISON: Comparison chest x-ray June 2021. TECHNIQUE: 3 views of the left ribs were obtained. FINDINGS: No new airspace consolidation or vascular congestion. There is no evidence for pneumothorax. No definite evidence for acute left rib fracture. There appear to be old healed left rib fracture deformities. Incidental note of multilevel spondylitic changes of the thoracic spine. A 4 to 5 mm nodular density projects at the medial left base. There are postsurgical changes in the right upper quadrant. XR/XR ribs LT min 3V w CXR1V IMPRESSION: No definite evidence for acute left rib fracture with evidence of old healed left rib fracture deformities. No consolidation or pleural effusion seen. Small nodular density projects at the medial left base. PA and lateral views of the chest recommended for further clarification when feasible.
== END 2022-10-25 14:57 | disposition home or self-care (01) ==
LOC: HO.HMGCX 14:56
PROVIDERS: PCP Internal Medicine; Visit Provider Internal Medicine
DX: R07.81 Pleurodynia (principal); Z91.81 History of falling
CPT/HCPCS: 71101; 72220

== ENCOUNTER 2022-11-19 13:36 | Outpatient (REF) | payer OTHER, SELFPAY ==
[2022-11-19 16:51] LABS: Blood Urea Nitrogen 12 mg/dL (9-16); Estimated Glomerular Filt Rate > 60
== END 2022-11-19 13:37 | disposition home or self-care (01) ==
LOC: HO.HMGCLDS 13:36
PROVIDERS: PCP Internal Medicine; Visit Provider Internal Medicine
DX: Z01.812 Encounter for preprocedural laboratory examination (principal); R53.83 Other fatigue
CPT/HCPCS: 36415; 82565; 84520

== ENCOUNTER 2022-11-23 09:51 | Outpatient (REF) | payer OTHER, SELFPAY ==
--- NOTE | ~2022-11-23 | CT_ITS ---
EXAMINATION: CT CHEST WITH CONTRAST CLINICAL INFORMATION: Follow-up pulmonary nodule COMPARISON: Previous chest and left rib x-rays 10/22/2022 TECHNIQUE: Multidetector volumetric CT imaging of the chest was obtained after the administration of 65 mL of Omnipaque 350 intravenous contrast without immediate adverse reactions. Axial MIP volume rendering provided. Sagittal and coronal reformatted images were obtained. This CT examination was performed using dose optimization techniques as appropriate, variously including the following: *Automated exposure control *Adjustment of mA and/or kV according to patient size (this includes techniques or standardized protocols for targeted exams where dose is matched to indication/reason for exam; i.e. extremities or head) *Use of iterative reconstruction technique DLP: 119 mGy-cm FINDINGS: LUNGS: There are small calcified and noncalcified pulmonary nodules or micronodules. There is a 4 mm left lower lobe nodule axial image 107 series 5. There is a 2 mm calcified right upper lobe nodule axial image 32 series 5. There is a 2 mm left upper lobe nodule axial image 42 series 5. There is a 2 mm left upper lobe nodule axial image 53 series 5. There is a 3 mm peripheral or subpleural calcified right lower lobe nodule axial image 92 series 5. There is a 3 mm peripheral or subpleural calcified left lower lobe nodule axial image 111 series 5. 3 mm calcified nodule at the left lung base adjacent to the diaphragmatic pleural surface axial image 116 series 5. There is minimal linear scarring or subsegmental atelectasis at the lung bases.. MEDIASTINUM: Normal heart size. No pericardial effusion. Normal caliber thoracic aorta. No coronary artery calcification. No enlarged hilar or mediastinal lymph nodes. Normal thyroid gland. Question small esophageal hernia. PLEURA: There is no pleural effusion. No pleural mass or thickening. AXILLA: No lymphadenopathy. UPPER ABDOMEN: There may be fatty infiltration of the liver. The gallbladder has been removed. There is question of a small cyst in the uncinate process of the head of the pancreas measuring 1 cm axial image 50 series. OSSEOUS STRUCTURES: There are healing left anterior fourth through sixth rib fractures. There are degenerative changes of the spine. There are old mild midthoracic vertebral body compression fractures, greatest at T7. There is a severe old-appearing L1 vertebral body fracture. CT/CT chest w IV con IMPRESSION: Small calcified and noncalcified pulmonary nodules or micronodules, largest measuring 4 mm in the left lower lobe. According to the UPDATED 2017 Fleischner Society recommendations, the advised follow-up imaging for less than 6 mm solid nodule: Low risk, no chest CT follow-up and high risk, optional chest CT follow-up in one year. Healing left anterior fourth through sixth rib fractures. Multiple old thoracic and lumbar compression fractures. Question 1 cm cystic lesion in the head of the pancreas. Dedicated pancreatic imaging with CT or MRI recommended. Fleischner guidelines were followed.
[2022-11-23] MEDS: iohexoL 350 MG/ML 100 ML INFUS..BTL IV (10:54)
== END 2022-11-23 09:52 | disposition home or self-care (01) ==
LOC: HO.CT 09:51
PROVIDERS: PCP Internal Medicine; Visit Provider Internal Medicine
DX: R91.1 Solitary pulmonary nodule (principal)
CPT/HCPCS: 71260; Q9967

== ENCOUNTER 2022-12-07 08:56 | Outpatient (REF) | payer OTHER, SELFPAY ==
[2022-12-07 17:03] LABS: Urine Cytology See Pathology rpt
== END 2022-12-07 08:57 | disposition home or self-care (01) ==
LOC: HO.LNP 08:56
PROVIDERS: PCP Internal Medicine; Visit Provider Nurse Practitioner Family
DX: R31.29 Other microscopic hematuria (principal)
CPT/HCPCS: 88112; 99212

== ENCOUNTER 2022-12-14 12:56 | Outpatient (REF) | payer OTHER, SELFPAY ==
--- NOTE | ~2022-12-14 | MM_ITS ---
EXAMINATION: MM SCREENING DIGITAL BREAST TOMOSYNTHESIS, BILATERAL CLINICAL INFORMATION: Screening. Asymptomatic. The lifetime risk of breast cancer based on the Tyrer-Cuzick Model is 7%. COMPARISON: Mammography: 09/21/2021; outside exam 10/17/2015 ([facility], [place], [place]). TECHNIQUE: Digital breast tomosynthesis is performed in both the craniocaudal and mediolateral oblique views along with computer-aided detection (CAD). Synthesized 2D images are generated from the tomosynthesis. FINDINGS: There are scattered areas of fibroglandular density (ACR BI-RADS breast composition Category b). Breast tissue composition borders on predominantly fatty. Background stromal markings are stable. No developing density or architectural abnormality. There are no significant masses, abnormal calcifications, or other abnormalities. MM/MM tomosynthesis screening BI IMPRESSION: No mammographic evidence of malignancy. ASSESSMENT: BI-RADS 1: Negative RECOMMENDATION: Routine annual mammography screening. This patient's information was entered into a reminder system with a target due date for their next mammogram.
== END 2022-12-14 12:57 | disposition home or self-care (01) ==
LOC: HO.MAMMO 12:56
PROVIDERS: PCP Internal Medicine; Visit Provider Internal Medicine
DX: Z12.31 Encounter for screening mammogram for malignant neoplasm of breast (principal)
CPT/HCPCS: 77063; 77067

== ENCOUNTER 2023-01-04 09:36 | Outpatient (REF) | payer OTHER, SELFPAY ==
--- NOTE | ~2023-01-04 | MR_ITS ---
EXAMINATION: MRI ABDOMEN WITH AND WITHOUT CONTRAST CLINICAL INFORMATION: F/U CYSTIC LESION HEAD OF PANCREAS COMPARISON: 11/23/2022 CT scan TECHNIQUE: Multiple routine MRI sequences through the abdomen were obtained on a high-field 1.5Tesla MRI. Pre-and postcontrast images with 8.5 mL of Gadavist intravenous contrast were obtained. This included a dynamic contrast-enhanced technique. FINDINGS: Lung bases: The visualized lung bases are unremarkable. Small hiatal hernia. Liver: The liver is normal in size, shape, and signal. No suspicious focal hepatic lesions seen. Specifically no suspicious arterial phase enhancing lesions or suspicious washout of contrast on later phases. No biliary ductal dilatation. Gallbladder: Surgically absent Pancreas: Pancreas is homogeneous in signal. There is a tubular 1.4 cm in length and approximately 0.3 cm diameter probable dilated branch duct along the posterior pancreatic head/neck region. This is best appreciated on reformatted images from the thin slab MRCP sequence. This corresponds to the subtle hypodensity seen on the prior CT scan. This closely approximates the normal caliber pancreatic duct. No pancreatic ductal dilatation or obstruction. No peripancreatic inflammatory changes or fluid. Spleen: Unremarkable Adrenals: Unremarkable Kidneys: Kidneys are normal in size, shape, and signal. No suspicious renal mass lesion seen. No hydronephrosis or perinephric edema. Other: Multilevel compression deformities of the lumbar spine more so at L1 and L3. MR/MR abdomen wo/w con IMPRESSION: There is a 1.4 cm tubular probable dilated branch duct along the posterior pancreatic head/neck region. This corresponds to the subtle hypodensity seen on the prior CT scan. This closely approximates the normal caliber pancreatic duct. I do not appreciate any intraluminal filling defects, nodularity, or enhancement. No suspicious or worrisome features. No upstream pancreatic ductal dilatation or obstruction. With this appearance, a follow-up MRI/MRCP in 6-12 months time would be recommended to assure stability of this finding.
--- NOTE | ~2023-01-04 | US_ITS ---
EXAMINATION: US RETROPERITONEAL COMPLETE (RENAL) CLINICAL INFORMATION: Other microscopic hematuria. COMPARISON: None. TECHNIQUE: Real-time imaging of the kidneys and bladder. FINDINGS: RIGHT KIDNEY: 9.5 x 5.5 x 5.7 cm (SAG x AP x TRV). The kidney is normal in size, contour, and echogenicity. Renal cortical thickness is normal. No calculi or focal parenchymal lesions. No hydronephrosis. LEFT KIDNEY: 11.0 x 5.1 x 5.5 cm (SAG x AP x TRV). The kidney is normal in size, contour, and echogenicity. Renal cortical thickness is normal. No calculi or focal parenchymal lesions. No hydronephrosis. BLADDER: Well distended and normal. Bilateral ureteral jets are demonstrated. Prevoid bladder volume is 290 mL. Postvoid bladder volume is 26 mL. US/US retroperitoneal comp IMPRESSION: Normal renal and bladder ultrasound.
== END 2023-01-04 09:37 | disposition home or self-care (01) ==
LOC: HO.MRI 09:36
PROVIDERS: PCP Internal Medicine; Visit Provider Internal Medicine
DX: R31.29 Other microscopic hematuria (principal); R19.07 Generalized intra-abdominal and pelvic swelling, mass and lump
CPT/HCPCS: 74183; 76770; A9585

== ENCOUNTER 2023-01-04 10:42 | Outpatient (REF) | payer OTHER, SELFPAY | END 2023-01-04 10:43 | disposition home or self-care (01) | LOC: HO.US 10:42 | PROVIDERS: PCP Internal Medicine; Visit Provider Nurse Practitioner Family | DX: Z13.89 Encounter for screening for other disorder (principal) ==

== ENCOUNTER 2023-01-10 14:17 | Outpatient (AMB) | payer OTHER, SELFPAY ==
--- NOTE | 2023-01-10 14:29 | MHC.OFFVIS ---
Intake Intake Visit Reasons: 4w/cysto/US(01/04/23) Intake Note: pt is here for cysto Allergies chocolate flavor Allergy (Verified 01/10/23 14:29) Unknown peanut Allergy (Verified 01/10/23 14:29) Anaphylaxis HPI HPI Comments History of Present Illness Details Becky is a 62-year-old female who presents to the office for microscopic hematuria and cystoscopy procedure. LV?12/07/22-- with MICHELLE Holden--Becky is a pleasant 62-year-old female patient of Dr. Bustamante. She presents to the office today for follow-up of her microscopic hematuria. In discussion with the patient today she reports to be feeling and doing well. In office urinalysis with 3+ microscopic hematuria otherwise within normal limits. When asked patient denies any urinary issues. When asked she does report her mom and sister to have a history of bladder cancer. She denies any smoking history or previous known chemical exposures. Discussed obtaining renal/bladder ultrasound for further assessment evaluation as well as in office cystoscopy. Discussed risks and benefits at length. Discussed possible causes of microscopic hematuria. When asked denies urinary urgency, urinary frequency, incontinence, nocturia, hematuria, dysuria, foul smelling urine, changes to urinary stream, flank pain, fever, and or chills. 01/10/23-- The patient states that her mother and sister had bladder issues. Her sister had bladder cancer. She denies smoking history. I reviewed the US retroperitoneal and urine cytology results. Retroperitoneal US results reviewed?01/04/23-- Kidneys: WNL. Bladder well distended to 290 mL with postvoid volume of 26 mL. Urine cytology--12/07/22-- negative for malignancy. Evaluation today-- Blood: 80 Freddy/uL, leukocytes: negative. Consent to perform cystoscopy was obtained. Cystoscopy findings-- mild trabeculations and no suspicious bladder lesion visualized. Plan: Follow-up with MICHELLE Holden in 9 months. [facility] Medical History Elevated cholesterol GERD (gastroesophageal reflux disease) Hip fracture, right History of pulmonary embolus (PE) Microscopic hematuria Osteoporosis Seizure Wrist fracture, bilateral Surgical History H/O: hysterectomy History of cholecystectomy History of colonoscopy History of hip surgery Social History Alcohol intake: never Patient Tobacco Use Status: Never used Tobacco service: No Current occupational status: unemployed Office Procedures Cystoscopy Consent Discussed risk and benefit or proposed procedure with the patient. Information consent for procedure given to the patient. Discussed technical aspects, risks, benefits and alternatives in full. Addressed all of the patient's questions and concerns regarding the procedure. The patient demonstrated knowledge and understanding. They wish to proceed with this procedure. Preparation The patient was prepped in the usual manner. A bessemer converter blower was present and in the room. Genitalia was prepped with betadine solution in a sterile manner. Lidocaine Jelly 2% was placed into the urethra and 16Fr flexible Olympus cystoscope was inserted into the meatus after adequate lubrication. Procedure Time out per protocol performed. Bladder Inspection Bladder Inspection: The bladder was inspected in its entirety with utilization retroflexion displaying: Tumor(s): none Trabeculation: Mild Mucosal Erthema: N/A Orifices: normal shape and position Urethra: normal Cystoscopy findings: WNL, no suspicious bladder lesions visualized [id number] Procedure code (CPT) selection complete Office Meds lidocaine HCl Performing Provider: William Ellison MD Administered by: Jaquelin Roy RN on 01/10/23 14:34 Dose Route Admin Location Lot Number Expiration Date NDC Care Coordination Manager 10 mL intra-urethral naproxen Performing Provider: William Ellison MD Administered by: Jaquelin Roy RN on 01/10/23 14:34 Dose Route Admin Location Lot Number Expiration Date NDC Care Coordination Manager 500 mg PO ciprofloxacin HCl Performing Provider: William Ellison MD Administered by: Jaquelin Roy RN on 01/10/23 14:34 Dose Route Admin Location Lot Number Expiration Date NDC Care Coordination Manager 500 mg PO Results AMB Urinalysis, Automated UA Leukoctes 0 Tex/uL Last Edit by Jose Alejandro Melendez CMA on 01/10/23 14:34 UA Nitrite Negative Last Edit by Jose Alejandro Melendez CMA on 01/10/23 14:34 UA Urobilinogen 0.2 mg/dL Last Edit by Jose Alejandro Melendez CMA on 01/10/23 14:34 UA Protein 15 mg/dL Last Edit by Jose Alejandro Melendez CMA on 01/10/23 14:34 UA pH 6.0 Last Edit by Jose Alejandro Melendez CMA on 01/10/23 14:34 UA Blood 80 Freddy/uL Last Edit by Jose Alejandro Melendez CMA on 01/10/23 14:34 UA Specific [place] 1.020 Last Edit by Jose Alejandro Melendez CMA on 01/10/23 14:34 UA Ketone Positive Last Edit by Jose Alejandro Melendez CMA on 01/10/23 14:34 UA Bilirubin 0 mg/dL Last Edit by Jose Alejandro Melendez CMA on 01/10/23 14:34 UA Glucose 0 mg/dL Last Edit by Jose Alejandro Melendez CMA on 01/10/23 14:34 Results Reviewed Results Reviewed: Laboratory Last Values Urine pH (Auto) 6.0 01/10/23 14:29 Specific [place] (Auto) 1.020 01/10/23 14:29 Urine Protein (Auto) 15 mg/dL 01/10/23 14:29 Glucose (UA)(Auto) 0 mg/dL 01/10/23 14:29 Urine Ketones (Auto) Positive 01/10/23 14:29 Urine Blood (Auto) 80 Freddy/uL 01/10/23 14:29 Urine Nitrite (Auto) Negative 01/10/23 14:29 Urine Bilirubin (Auto) 0 mg/dL 01/10/23 14:29 Urine Urobilinogen (Auto) 0.2 mg/dL 01/10/23 14:29 Leukocyte Esterase (Auto) 0 Tex/uL 01/10/23 14:29 Date of Service: 01/04/23 EXAMINATION: US RETROPERITONEAL COMPLETE (RENAL) CLINICAL INFORMATION: Other microscopic hematuria. COMPARISON: None. TECHNIQUE: Real-time imaging of the kidneys and bladder. FINDINGS: RIGHT KIDNEY: 9.5 x 5.5 x 5.7 cm (SAG x AP x TRV). The kidney is normal in size, contour, and echogenicity. Renal cortical thickness is normal. No calculi or focal parenchymal lesions. No hydronephrosis. LEFT KIDNEY: 11.0 x 5.1 x 5.5 cm (SAG x AP x TRV). The kidney is normal in size, contour, and echogenicity. Renal cortical thickness is normal. No calculi or focal parenchymal lesions. No hydronephrosis. BLADDER: Well distended and normal. Bilateral ureteral jets are demonstrated. Prevoid bladder volume is 290 mL. Postvoid bladder volume is 26 mL. IMPRESSION: Normal renal and bladder ultrasound. Collected: 12/07/22 Received: 12/08/22 Diagnosis Urine:? Negative for high-grade urothelial carcinoma.? COMMENT:? Examination of a monolayer preparation slide shows benign urothelial cells, scattered benign squamous cells, scattered acute inflammatory cells, and red blood cells. Clinical History Microscopic hematuria Material Received Urine Gross Description 10 cc clear yellow fluid Assessment & Plan Assessment & Plan (1) Microscopic hematuria: Code(s): R31.29 - Other microscopic hematuria Plan Follow-up with MICHELLE Holden in 9 months. Orders: Orders AMB Cystoscopy 01/10/23 R31.29 - Other microscopic hematuria AMB Urinalysis Automated 01/10/23 Z13.9 - Encounter for screening, unspecified Coding Level of Care Code Procedure Only Diagnoses Microscopic hematuria R31.29 CPT Codes Cystoscopy - CPT: 05156-[id number] ([id number])
== END 2023-01-10 16:11 | disposition home or self-care (01) ==
LOC: HO.HUSH 14:17
PROVIDERS: PCP Internal Medicine; Visit Provider Urology
DX: R31.29 Other microscopic hematuria (principal)
CPT/HCPCS: 52000

== ENCOUNTER → 2023-01-10 14:17 | Outpatient (BNVA) | payer OTHER, SELFPAY | PROVIDERS: PCP Internal Medicine; Visit Provider Urology | DX: R31.29 Other microscopic hematuria (principal) | CPT/HCPCS: 52000 ==

== ENCOUNTER 2023-11-07 12:15 | Outpatient (REF) | payer OTHER, SELFPAY ==
[2023-11-07 16:39] LABS: Urine Cytology See Pathology rpt
== END 2023-11-07 12:16 | disposition home or self-care (01) ==
LOC: HO.LNP 12:15
PROVIDERS: Visit Provider Nurse Practitioner Family
DX: R31.29 Other microscopic hematuria (principal)
CPT/HCPCS: 81003; 88112; 99212

== ENCOUNTER 2023-11-07 12:15 | Outpatient (AMB) | payer OTHER, SELFPAY ==
--- NOTE | 2023-11-07 12:16 | A.OFFVIS_ITS ---
Intake Intake Visit Reasons: 9 month micro hematuria (per Dr Cummins) Intake Note: Patient is presents for follow up hematuria Urology Medications: none Blood Thinner: none Conche Loader And Unloader Required: No Accompanied by: Self / Same As Patient Allergies chocolate flavor Allergy (Verified 11/07/23 20:29) Unknown peanut Allergy (Verified 11/07/23 20:29) Anaphylaxis Medication List - Last Reconciled 11/07/23 by Latasha Holden, [facility]- alendronate 1 tab PO QWEEK atorvastatin 1 tab PO DAILY levetiracetam 1,000 mg PO BID levetiracetam 500 mg PO BID loratadine 10 mg PO DAILY omeprazole 40 mg PO DAILY omeprazole 40 mg PO QAM ondansetron 4 mg PO Q8H PRN phenytoin sodium extended (Dilantin Extended) 200 mg PO BID HPI HPI Comments History of Present Illness Details Becky is a pleasant 63-year-old female patient of Dr. Bustamante. She has a past medical history of GERD, pulmonary embolism, hypercholesteremia, right-sided hip fracture, osteoporosis, and seizures. She presents to the office today for follow-up of her microscopic hematuria. Of note, patient was last seen by Dr. Cummins at which time an in office cystoscopy was performed for ongoing microscopic hematuria. Cystoscopy findings with mild trabeculation and no suspicious bladder lesions visualized. Previous workup has included a retroperitoneal ultrasound noting who presents to the office for microscopic hematuria and cystoscopy procedure. Bilateral kidneys with no calculi, lesions, and or hydronephrosis. The bladder is well distended and normal. Bilateral ureteral jets are demonstrated. Pre void bladder volume is approximately 300 mL. Postvoid bladder volume is approximately 30 mL. Normal renal ultrasound. Urine cytology 12/12--negative for high-grade urethral carcinoma. When asked patient denies any urinary issues. When asked she does report her mom and sister to have a history of bladder cancer. She denies any smoking history or previous known chemical exposures. When asked denies urinary urgency, urinary f requency, incontinence, nocturia, hematuria, dysuria, foul smelling urine, changes to urinary stream, flank pain, fever, and or chills. In office urinalysis results reviewed with the patient today. She otherwise offers no other issues or concerns at this time. [facility] Medical History Microscopic hematuria Wrist fracture, bilateral GERD (gastroesophageal reflux disease) History of pulmonary embolus (PE) Elevated cholesterol Hip fracture, right Seizure Osteoporosis Surgical History H/O: hysterectomy History of cholecystectomy History of colonoscopy History of hip surgery Social History Alcohol intake: never Patient Tobacco Use Status: Never used Tobacco service: No Current occupational status: unemployed Review of Systems Const All systems reviewed & are unremarkable except as noted in HPI and below Eyes Reports no additional complaints ENT Reports no additional complaints Card Reports no additional complaints Resp Reports no additional complaints GI Reports no additional complaints Reports as per HPI Musc Reports no additional complaints Neuro Reports no additional complaints Psych Reports no additional complaints Endo Reports no additional complaints Davie/Lymph Reports no additional complaints Aller/Immun Reports no additional complaints Physical Exam Const General: cooperative, healthy appearing, comfortable, no acute distress, well developed and awake Nutritional Appearance: average body habitus Orientation/consciousness: patient oriented x3 Limitations: no limitations HEENT Head: Yes normal to inspection, Yes normocephalic and Yes atraumatic Eyes General: appearance normal, both eyes and all related structures Neck Neck: Yes normal visual inspection and Yes trachea midline Chest Chest palpation & inspection: normal inspection of the chest Resp Effort & Inspection: normal respiratory effort and able to speak in complete sentences Cardio Rate: regular rate GI Inspection: Yes normal to inspection General: Yes no CVA tenderness Back/Spine/Pelvis Back: no CVA tenderness Skin General skin exam: no rashes or lesions noted Neuro General: patient oriented x3 Extrem General: Yes normal to inspection Psych Appearance: grossly normal and well kempt Mental Status: mental status grossly normal Speech and movement: Normal speech and movement present and Clear speech present Affect: normal affect Attitude: cooperative Thought process: Normal thought process present Thought content: Normal thought content present Insight: Good insight present (Psych) Judgement: Good judgement present (Psych) Results AMB Urinalysis, Automated UA Leukoctes 0 Tex/uL Last Edit by Luis Manuel Stratton on 11/07/23 13:07 UA Nitrite Negative Last Edit by Luis Manuel Stratton on 11/07/23 13:07 UA Urobilinogen 0.2 mg/dL Last Edit by Luis Manuel Stratton on 11/07/23 13:07 UA Protein 15 mg/dL Last Edit by Luis Manuel Stratton on 11/07/23 13:07 UA pH 6.0 Last Edit by Luis Manuel Stratton on 11/07/23 13:07 UA Blood 25 Freddy/uL Last Edit by Luis Manuel Stratton on 11/07/23 13:07 UA Specific Lottie 1.015 Last Edit by Luis Manuel Stratton on 11/07/23 13:07 UA Ketone Negative Last Edit by Luis Manuel Stratton on 11/07/23 13:07 UA Bilirubin 0 mg/dL Last Edit by Luis Manuel Stratton on 11/07/23 13:07 UA Glucose 0 mg/dL Last Edit by Luis Manuel Stratton on 11/07/23 13:07 Results Reviewed Results Reviewed: Laboratory Last Values Urine pH (Auto) 6.0 11/07/23 12:32 Specific Lottie (Auto) 1.015 11/07/23 12:32 Urine Protein (Auto) 15 mg/dL 11/07/23 12:32 Glucose (UA)(Auto) 0 mg/dL 11/07/23 12:32 Urine Ketones (Auto) Negative 11/07/23 12:32 Urine Blood (Auto) 25 Freddy/uL 11/07/23 12:32 Urine Nitrite (Auto) Negative 11/07/23 12:32 Urine Bilirubin (Auto) 0 mg/dL 11/07/23 12:32 Urine Urobilinogen (Auto) 0.2 mg/dL 11/07/23 12:32 Leukocyte Esterase (Auto) 0 Tex/uL 11/07/23 12:32 Assessment & Plan Assessment & Plan (1) Microscopic hematuria: Code(s): R31.29 - Other microscopic hematuria Plan In office urinalysis results reviewed with the patient today; as noted above; will send for urine cytology. Patient denies any bothersome urinary issues or concerns. Patient with previous microscopic hematuria workup negative Discussed bladder triggers/irritants. Discussed, educated, and stressed the importance of drinking plenty of water daily. Will continue with surveillance monitoring at this time. She reports to be happy with current voiding parameters. Follow-up in 6 months; or sooner with any issues, concerns, and or questions. Orders: Orders AMB Urinalysis Automated Today Z13.9 - Encounter for screening, unspecified Urine Cytology Today R31.29 - Other microscopic hematuria Patient Instructions: The patient had an opportunity to ask questions regarding the treatment plan. All questions were answered. Physical exam, labs, and imaging were discussed and reviewed in detail. As well as risks, benefits, and discussion of treatment choices. No major barriers to understanding were identified. The patient expressed understanding and agreement with the above treatment plan. The patient was made aware they should contact our office by phone for worsening of their current condition, the appearance of new symptoms, or with any questions or concerns. Compliance is encouraged with any medications and follow up testing that is ordered. It is a privilege to be allowed the opportunity to participate in? your urological care.? Again, if you have any questions or concerns If you have any questions or concerns please do not hesitate to contact me. The office is [phone]. This note is constructed using voice recognition software. While every effort has been made to ensure accuracy gis developer errors may have been included. Yours sincerely, AUDI Villarreal Coding Level of Care Code Est Pt Level 3 (75998) Diagnoses Microscopic hematuria R31.29
== END 2023-11-07 12:46 | disposition home or self-care (01) ==
PROVIDERS: Visit Provider Nurse Practitioner Family
DX: Z13.9 Encounter for screening, unspecified (principal); R31.29 Other microscopic hematuria
CPT/HCPCS: 99213

== ENCOUNTER 2023-12-19 12:34 | Outpatient (REF) | payer OTHER, SELFPAY ==
--- NOTE | ~2023-12-19 | MM_ITS ---
EXAMINATION: MM SCREENING DIGITAL BREAST TOMOSYNTHESIS, BILATERAL CLINICAL INFORMATION: Screening. Asymptomatic. COMPARISON: Mammography: This study is compared with prior exams dating back to 2016. TECHNIQUE: Digital breast tomosynthesis is performed in both the craniocaudal and mediolateral oblique views along with computer-aided detection (CAD). Synthesized 2D images are generated from the tomosynthesis. FINDINGS: There are scattered areas of fibroglandular density (ACR BI-RADS breast composition Category b). There are no significant masses, abnormal calcifications, or other abnormalities. MM/MM tomosynthesis screening BI IMPRESSION: No mammographic evidence of malignancy. ASSESSMENT: BI-RADS BI-RADS 1 - Negative RECOMMENDATION: Routine annual mammography screening. 1 year F/U This examination should not preclude the clinical evaluation of a suspicious palpable abnormality. This patient's information was entered into a reminder system with a target due date for their next mammogram.
== END 2023-12-19 12:35 | disposition home or self-care (01) ==
LOC: HO.MAMMO 12:34
PROVIDERS: PCP Internal Medicine; Visit Provider Internal Medicine
DX: Z12.31 Encounter for screening mammogram for malignant neoplasm of breast (principal)
CPT/HCPCS: 77063; 77067

== ENCOUNTER → 2023-12-19 12:45 | Outpatient (BNV) | payer OTHER, SELFPAY | PROVIDERS: PCP Internal Medicine; Visit Provider Radiology Diagnostic Radiology | DX: Z12.31 Encounter for screening mammogram for malignant neoplasm of breast (principal) | CPT/HCPCS: 77063; 77067 ==

== ENCOUNTER 2024-03-28 13:29 | Outpatient (REF) | payer OTHER, SELFPAY ==
[2024-03-28 16:24] LABS: Cholesterol 189 mg/dL (<200); HDL Cholesterol 53 mg/dL (>40); LDL Cholesterol Calculated 122 mg/dL (<100); Triglycerides 70 mg/dL (<150)
[2024-03-28 16:42] LABS: Free T4 (Free Thyroxine) 0.94 ng/dL (0.71-1.85); Thyroid Stimulating Hormone 1.03 uIU/mL (0.32-4.0)
[2024-03-28 16:55] LABS: Phenytoin Dilantin 18.3 ug/mL (10.0-20.0)
== END 2024-03-28 13:30 | disposition home or self-care (01) ==
LOC: HO.HMGCLDS 13:29
PROVIDERS: PCP Internal Medicine; Visit Provider Internal Medicine
DX: Z00.00 Encounter for general adult medical examination without abnormal findings (principal); E78.5 Hyperlipidemia, unspecified; G40.909 Epilepsy, unspecified, not intractable, without status epilepticus
CPT/HCPCS: 36415; 80061; 80185; 84439; 84443

== ENCOUNTER 2024-03-29 12:03 | Emergency (ER) | payer OTHER, SELFPAY ==
[2024-03-29 12:19] VITALS: BP 128/64; PULSE 64; RESP 18; TEMP 36.3; O2SAT 98; BMI 32.2
--- NOTE | 2024-03-29 12:39 | ED_ITS ---
HPI - General Adult General Chief complaint: General Medical Stated complaint: Head/neck pain, vomiting Time Seen by Provider: 03/29/24 19:55 Related Data Home Medications ?Medication ?Instructions ?Recorded ?Confirmed ondansetron 4 mg disintegrating 4 mg PO Q8H PRN Nausea 07/08/21 12/24/21 tablet alendronate 70 mg tablet 1 tab PO QWEEK 12/24/21 12/24/21 atorvastatin 20 mg tablet 1 tab PO DAILY 12/24/21 12/24/21 omeprazole 20 mg capsule,delayed 40 mg PO DAILY 12/24/21 12/24/21 release phenytoin sodium extended 100 mg 200 mg PO BID 12/24/21 12/30/21 capsule (Dilantin Extended) omeprazole 40 mg capsule,delayed 40 mg PO QAM 03/23/22 release loratadine 10 mg tablet 10 mg PO DAILY 12/07/22 levetiracetam 500 mg tablet 500 mg PO BID 11/07/23 Previous Rx's ?Medication ?Instructions ?Recorded levetiracetam 1,000 mg tablet 1,000 mg PO BID #0 tabs 07/09/21 Allergies Allergy/AdvReac Type Severity Reaction Status Date / Time chocolate flavor Allergy Unknown Verified 03/29/24 12:21 peanut Allergy Anaphylaxis Verified 03/29/24 12:21 [facility] Past Medical History Medical History Microscopic hematuria Wrist fracture, bilateral GERD (gastroesophageal reflux disease) History of pulmonary embolus (PE) Elevated cholesterol Hip fracture, right Seizure Osteoporosis Surgical History H/O: hysterectomy History of cholecystectomy History of colonoscopy History of hip surgery Social History Social History Alcohol intake: never Patient Tobacco Use Status: Never used Tobacco Advance Directives: No Do you have a plan to hurt others: No Plan service: No Current occupational status: unemployed Physical Exam ED Vital Signs: Vital Signs - 24 hr 03/29/24 12:19 03/29/24 19:14 Temperature 97.4 F 98.1 F Pulse Rate 64 60 Respiratory Rate 18 20 Blood Pressure 128/64 131/47 L Pulse Oximetry 98 100 Oxygen Delivery Method Room Air Room Air BMI result Body Mass Index 32.2 Course Course Course Narrative: This is a Rapid Medical Examination (RME) performed by Adarsh Marcos PA-C in triage. Full HPI, ROS, assessment and treatment plan per primary provider in the Main ED. 63 yo female hx of epilepsy on Dilantin and Keppra, med compliant, here for eval of headache, neck pain, nausea and vomiting following witnessed seizure at work 7 days ago. no head strike during sz. At the time she was evaluated at [facility] and discharged home. reports continued symptoms since returning home. denies fever/ chills. + No midline spinous tenderness or step off deformity. No paraspinal muscle tenderness. exam nonfocal. ambulating w/ steady gait. Plan: labs, viral serology ordered. records requested from [facility]. +/- imaging per primary provider. Reevaluation(s) Reevaluation #1: Patient left the ED without completing treatment. Medical Decision Making Lab Data 03/29/24 13:10 03/29/24 13:10 Labs: Lab Results 03/29/24 Range/Units 13:10 WBC 4.2 L (4.8-10.8) X10*3/uL RBC 4.44 (4.20-5.50) X10*6/uL Hgb 13.4 (12.0-16.0) g/dl Hct 39.8 (37.0-47.0) % MCV 89.6 (80.0-98.0) fL MCH 30.2 (27.0-33.0) pg MCHC 33.7 (31.0-35.0) g/dl RDW 13.3 (11.0-16.0) % Plt Count 137 L (160-400) X10*3/uL MPV 10.7 (9.4-12.3) fL Immature Gran % (Auto) 0.2 (0.0-0.4) % Neut % (Auto) 52.8 (45-73) % Lymph % (Auto) 38.7 (20-40) % [place] % (Auto) 7.1 (2-11) % Eos % (Auto) 0.7 (0-4) % Baso % (Auto) 0.5 (0-2) % Lymph # (Auto) 1.6 (1.2-4.9) X10*3/uL [place] # (Auto) 0.3 (0.1-1.2) X10*3/uL Eos # (Auto) 0.0 (0.0-0.4) X10*3/uL Baso # (Auto) 0.0 (0.0-0.2) X10*3/uL Abs Immat Gran (auto) 0.01 (0.00-0.03) X10*3/uL Absolute Neuts (auto) 2.2 (2.0-8.3) x10*3/uL Absolute Nucleated RBC 0.000 (0.0-0.012) X10*3/uL Nucleated RBC % (auto) 0.0 (0.0-0.2) /100WBC Sodium 140 (135-145) mmol/L Potassium 3.9 (3.3-5.1) mmol/L Chloride 107 (96-108) mmol/L Carbon Dioxide 24 (22-29) mmol/L Anion Gap 13 (12-20) BUN 10 (9-16) mg/dL Creatinine 0.73 (0.5-1.4) mg/dL Estim Creat Clear Calc 73.1 Estimated GFR > 60 Random Glucose 83 (60-115) mg/dL Calcium 9.4 D (8.4-10.2) mg/dL Magnesium 2.2 (1.6-2.6) mg/dL Total Bilirubin 0.4 (0.0-1.0) mg/dL AST 22 (5-31) U/L ALT 25 (0-31) U/L Alkaline Phosphatase 48 (39-117) U/L Total Protein 7.4 (6.5-8.0) g/dL Albumin 4.0 (3.5-5.0) g/dL Influenza Type A (PCR) NEGATIVE (Negative) Influenza Type B (PCR) NEGATIVE (Negative) RSV RNA Qual (PCR) NEGATIVE (Negative) SARS-CoV-2 RNA (RT-PCR) NEGATIVE (Negative) Discharge Plan Discharge Clinical Impression: Headache Patient Disposition: Left W/O Completing Treatment Prescriptions: No Action ondansetron 4 mg Tablet,Disintegrating 4 mg PO Q8H PRN (Reason: Nausea) levetiracetam 1,000 mg tablet 1,000 mg PO BID Qty: 0 0RF Rx Instructions: Take 1000 mg of Keppra IN MORNING ADDITIONAL 1500 mg of Keppra EVENING atorvastatin 20 mg tablet 1 tab PO DAILY alendronate 70 mg tablet 1 tab PO QWEEK omeprazole 20 mg capsule,delayed release(DR/EC) 40 mg PO DAILY phenytoin sodium extended [Dilantin Extended] 100 mg Capsule 200 mg PO BID omeprazole 40 mg capsule,delayed release(DR/EC) 40 mg PO QAM loratadine 10 mg tablet 10 mg PO DAILY levetiracetam 500 mg tablet 500 mg PO BID Discharge Date/Time: 03/29/24 20:49
[2024-03-29 13:23] LABS: MANUAL DIFF FLAG NO
[2024-03-29 13:30] LABS: Basophils Percent Auto 0.5 % (0-2); Eosinophils Percent Auto 0.7 % (0-4); Hematocrit 39.8 % (37.0-47.0); Hemoglobin 13.4 g/dl (12.0-16.0); Imm Gran Abs Auto 0.01 X10*3/uL (0.00-0.03); Imm Gran Pct Auto 0.2 % (0.0-0.4); Lymphocytes Absolute Auto 1.6 X10*3/uL (1.2-4.9); Lymphocytes Percent Auto 38.7 % (20-40); Mean Corpuscular HGB Conc 33.7 g/dl (31.0-35.0); Mean Corpuscular Hemoglobin 30.2 pg (27.0-33.0); Mean Corpuscular Volume 89.6 fL (80.0-98.0); Mean Platelet Volume 10.7 fL (9.4-12.3); Monocytes Absolute Auto 0.3 X10*3/uL (0.1-1.2); Monocytes Percent Auto 7.1 % (2-11); Neutrophils Absolute Auto 2.2 x10*3/uL (2.0-8.3); Neutrophils Percent Auto 52.8 % (45-73); Platelet Count 137 X10*3/uL (160-400); Red Blood Count 4.44 X10*6/uL (4.20-5.50); Red Cell Distribution Width 13.3 % (11.0-16.0); White Blood Count 4.2 X10*3/uL (4.8-10.8)
[2024-03-29 13:41] LABS: Alanine Aminotransferase 25 U/L (0-31); Alkaline Phosphatase 48 U/L (39-117); Anion Gap 13 (12-20); Aspartate Amino Transferase 22 U/L (5-31); Bilirubin Total 0.4 mg/dL (0.0-1.0); Blood Urea Nitrogen 10 mg/dL (9-16); Calcium 9.4 mg/dL (8.4-10.2); Carbon Dioxide 24 mmol/L (22-29); Chloride 107 mmol/L (96-108); Creatinine Clr Calc Pharmacy 73.1; Estimated Glomerular Filt Rate > 60; Glucose Random 83 mg/dL (60-115); Magnesium 2.2 mg/dL (1.6-2.6); Potassium 3.9 mmol/L (3.3-5.1); Sodium 140 mmol/L (135-145); Total Protein 7.4 g/dL (6.5-8.0)
[2024-03-29 14:41] LABS: Influenza A PCR NEGATIVE (Negative); Influenza B PCR NEGATIVE (Negative); Resp Syncy Virus RNA Qual PCR NEGATIVE (Negative); SARS COV2 PCR INHOUSE NEGATIVE (Negative)
[2024-03-29 19:14] VITALS: BP 131/47; PULSE 60; RESP 20; TEMP 36.7; O2SAT 100
--- NOTE | 2024-03-29 20:42 | PC.NURSE ---
this nurse went to round on pt, pt was not in exam room- searched ED, unable to find pt. SUPERVISOR PLASTERING notified
== END 2024-03-29 20:49 | disposition left against medical advice (07) ==
PROVIDERS: Physician Assistant Medical; Emergency Provider Emergency Medicine; PCP Internal Medicine
DX: R51.9 Headache, unspecified (principal); M54.2 Cervicalgia; Z03.818 Encounter for observation for suspected exposure to other biological agents ruled out; E78.5 Hyperlipidemia, unspecified; Z79.02 Long term (current) use of antithrombotics/antiplatelets; Z79.899 Other long term (current) drug therapy
CPT/HCPCS: 0241U; 80053; 80177; 83735; 85025; 99281; 99283

== ENCOUNTER 2024-04-16 14:48 | Outpatient (REF) | payer OTHER, SELFPAY ==
--- NOTE | ~2024-04-16 | XR_ITS ---
EXAMINATION: XR RIBS, RIGHT CLINICAL INFORMATION: Right rib pain status post fall. COMPARISON: Chest CT November 23, 2022 TECHNIQUE: 3 views of the right ribs were obtained. PA view of the chest was obtained. FINDINGS: The lungs are well expanded. No focal consolidation. No pleural effusion. Cardiac silhouette is within normal limits. Surgical clips are noted over the right upper quadrant. Old healed fracture of the right posterior third rib. Subtle contour abnormality lateral right 11th rib possibly representing nondisplaced fracture. XR/XR ribs RT min 3V w CXR1V IMPRESSION: Possible nondisplaced fracture lateral right 11th rib. Electronically signed by: Mike Florence MD 05/07/2024 12:23 PM EDT RP
== END 2024-04-16 14:49 | disposition home or self-care (01) ==
LOC: HO.HMGCX 14:48
PROVIDERS: PCP Internal Medicine; Visit Provider Internal Medicine
DX: R07.81 Pleurodynia (principal); Z91.81 History of falling
CPT/HCPCS: 71101

== ENCOUNTER 2024-07-03 08:50 | Day surgery (SDC) | payer OTHER, SELFPAY ==
[2024-06-29 14:15] VITALS: BMI 33.0
[2024-07-03 09:28] VITALS: BP 111/78; PULSE 83; RESP 12; TEMP 37.2; O2SAT 100; BMI 34.0
--- NOTE | 2024-07-03 09:36 | P.HPSUR_ITS ---
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 Details of Present Illness: see H&P no changes Relevant Family History (Specify if Yes): No Relevant Social History: None Present Medications: see Short Stay Collaborative assessment Medical History: No relevant PMH History of Previous Operations: No relevant previous surgery Allergies: Allergies Allergy/AdvReac Type Severity Reaction Status Date / Time peanut Allergy Severe Anaphylaxis Verified 07/03/24 09:27 chocolate flavor Allergy Unknown Unknown Verified 07/03/24 09:27 Review of Systems Sugical H&P ROS: Negative: Constitution, Cardiovascular, Respiratory, Neurological, Psychiatric, Hem-Onc, Allergic/Immunologic, Gastrointestinal, Genitourinary, Musculoskeletal, Integumentary, Endocrine and Eyes/Ears/Nose/Throat Exam Surgical H&P Exam: Normal: HEENT, Normal: Heart, Normal: Lungs, Normal: Extr emities, Normal: Abdomen, Normal: Skin and Normal: Neurological Plan Diagnosis/Plan: Unchanged I have reviewed the history and physical and performed a pertinent physical examination on my patient. No changes have occurred unless specified. Time Spent With Patient Time: Total time managing care of this patient today ____ minutes.
--- NOTE | 2024-07-03 09:37 | HO.ANESPROP2 ---
[facility] Active Problems Active Problems: All Active Problems Breakthrough seizure (Acute) COVID-19 (Acute) Microscopic hematuria (Acute) Past Medical History Medical History Microscopic hematuria GERD (gastroesophageal reflux disease) History of pulmonary embolus (PE) Elevated cholesterol Hip fracture, right Seizure Osteoporosis Functional capacity: independent ambulation Family History Family history of problems with anesthesia: No Surgical History Surgical History History of surgery on wrist Hx of knee surgery History of esophagogastroduodenoscopy (EGD) History of colonoscopy H/O: hysterectomy History of hip surgery History of cholecystectomy History of Problems with Anesthesia: No Social History Social History Are you a primary rn medicare to a significant other at home: No Do you presently have visiting nurse or other home services: No Alcohol intake: never Patient Tobacco Use Status: Never used Tobacco Use of substances other than those prescribed or required for medical reasons: No Have you been hit, kicked, punched, or otherwise hurt by someone within the past year? If so, by whom?: No Are you DNR?: No Advance Directives: No Advance Directives Information Provided: Yes Recently lost weight without trying: No Nutrition Risks: No Nutritional Risk Patient : No service: No Current occupational status: unemployed Meds Allergies Allergy/AdvReac Type Severity Reaction Status Date / Time peanut Allergy Severe Anaphylaxis Verified 07/03/24 09:27 chocolate flavor Allergy Unknown Unknown Verified 07/03/24 09:27 Active Medications: Current Medications Lactated Ringer's (Lr) 1,000 mls @ 50 mls/hr IVCONT .Q20H SHERRY Home Medications ?Medication ?Instructions ?Recorded ?Confirmed ?Last Taken ?Type alendronate 70 mg tablet 1 tab PO QWEEK 12/24/21 06/29/24 Unknown History atorvastatin 20 mg tablet 1 tab PO DAILY 12/24/21 06/29/24 Unknown History phenytoin sodium extended 100 mg 200 mg PO BID 12/24/21 06/29/24 07/03/24 History capsule (Dilantin Extended) omeprazole 40 mg capsule,delayed 40 mg PO QAM 03/23/22 06/29/24 Unknown History release loratadine 10 mg tablet 10 mg PO DAILY 12/07/22 06/29/24 Unknown History levetiracetam 500 mg tablet 500 mg PO BID 11/07/23 06/29/24 07/03/24 History Exam Height,Weight and Vital Signs: Height 5 ft Weight 78.925 kg Last Vital Signs Temp 99.0 F 07/03/24 09:28 Pulse 83 07/03/24 09:28 Resp 12 07/03/24 09:28 BP 111/78 07/03/24 09:28 Pulse Ox 100 07/03/24 09:28 O2 Del Method Room Air 07/03/24 09:28 Airway Mallampati Class: II TM Dist: >3cm Neck ROM: Full Heart: RRR Lungs: CTA Assessment and Plan Final Anesthetic Review Family History of Problems with Anesthesia: No History of Problems with Anesthesia: No ASA Class: III Final Preanesthetic Review: Meds/Allgs Chart Reviewed, Consent Obtained/Reviewed and Anes Risks/Benef Reviewed Patient Risk: Intermediate Procedure Risk: Low Anesthetic Plan Anesthetic Plan: MAC: Disposition: Standard PACU
[2024-07-03] MEDS: Lactated Ringers 1,000 ML 50 ML IVCONT (09:42)
[2024-07-03 10:05] VITALS: BP 109/65; PULSE 92; RESP 16; TEMP 36.6; O2SAT 99
[2024-07-03 10:22] VITALS: BP 125/79; PULSE 82; RESP 18; TEMP 37; O2SAT 100
--- NOTE | 2024-07-03 10:26 | OP_ITS ---
DATE OF SERVICE: 07/03/2024 SURGEON: Keagan Bhagat MD INDICATIONS: Dumont's esophagus. PREOPERATIVE DIAGNOSIS: POSTOPERATIVE DIAGNOSIS: PROCEDURE PERFORMED: Upper endoscopy with biopsy. ESTIMATED BLOOD LOSS: COMPLICATIONS: ANESTHESIA: Monitored anesthesia care. ASSISTANTS: SPECIMENS: DESCRIPTION OF PROCEDURE: A history and physical were performed. The risks and benefits of the procedure were explained to the patient. Informed consent was obtained. The patient was placed in the left lateral decubitus position. The Olympus video gastroscope was introduced into the esophagus, stomach, and duodenum. Examination was performed, and the scope was removed. She tolerated the procedure well and was taken to the recovery room in stable condition. FINDINGS: 1. Esophagus: The esophagus was normal. There was a nonobstructive Schatzki ring. There was no esophagitis. Biopsies were obtained from the EG junction. There was a small hiatal hernia. 2. Stomach: The stomach showed no evidence of masses, ulcers, or polyps. 3. Duodenal, bulb and 2nd portion were normal. IMPRESSION: Dumont esophagus. RECOMMENDATION: Follow up the biopsy results. MD ERIC Varghese/COREY / [id number]
--- NOTE | 2024-07-03 10:41 | HO.POSTANES ---
Post Anesthesia Evaluation Post Anesthesia Evaluation Date of Service: 07/03/24 Vital Signs: Vital Signs Temp Pulse Resp BP Pulse Ox O2 Del Method 07/03/24 10:22 98.6 F 82 18 125/79 100 Room Air 07/03/24 10:05 97.8 F 92 16 109/65 99 Room Air 07/03/24 09:28 99.0 F 83 12 111/78 100 Room Air Anesthesia: Monitored Mental Status: Awake Pain Control: Satisfactory Nausea/Vomiting: None Hydration: Adequate Anesthesia-Related Issues: No Anes. Related Issues
== END 2024-07-03 10:40 | disposition home or self-care (01) ==
PROVIDERS: PCP Internal Medicine; Visit Provider Internal Medicine Gastroenterology
PROC: 0DJ08ZZ Inspection of Upper Intestinal Tract, Via Natural or Artificial Opening Endoscopic (ICD-10-PCS; CPT 43235; principal; 2024-07-03 10:10)
DX: K22.70 Barrett's esophagus without dysplasia (principal); K22.2 Esophageal obstruction; K44.9 Diaphragmatic hernia without obstruction or gangrene; K21.9 Gastro-esophageal reflux disease without esophagitis; E78.00 Pure hypercholesterolemia, unspecified; G40.909 Epilepsy, unspecified, not intractable, without status epilepticus; M81.0 Age-related osteoporosis without current pathological fracture; Z79.899 Other long term (current) drug therapy; Z91.010 Allergy to peanuts; Z91.018 Allergy to other foods; Z90.49 Acquired absence of other specified parts of digestive tract; Z56.0 Unemployment, unspecified
CPT/HCPCS: 43239; 88305; 88313; J2003; J2371; J2704

== ENCOUNTER 2024-12-24 12:26 | Outpatient (REF) | payer OTHER, SELFPAY ==
--- OUTSIDE RECORDS SUMMARY | 2024-12-24 13:52 | XMS_ITS ---
Author Organization [facility] Address [address] [place] [phone] Care Team Providers Care Hot Tar Roofer Name Role Phone Robby CANTRELL, Ulysses Primary Care Provider Keagan Godwin Jr Unavailable REASON FOR VISIT hurtado's Problems Problem Type SNOMED Code ICD Code Onset Dates Problem Status W/U Status Risk Notes Problem Hurtado''s esophagus without dysplasia (K22.70) Active confirmed Encounters Encounter Location Date Provider Diagnosis [facility] [place] [address] [place] [phone] 07/03/2024 Keagan Bhagat Jr Hurtado''s esophagus without dysplasia K22.70 Assessments Encounter Date Diagnosis (ICD Code) Assessment Notes Treatment Notes Treatment Clinical Notes Section Notes 07/03/2024 Hurtado''s esophagus without dysplasia (ICD-10 - K22.70) Plan Of Treatment No Information Progress Notes * ISIDRO SIMMONS LDOB:[birth year] (64 yo F)Acc No.[id number]:07/03/2024 EGD/MAC Patient:?ISIDRO SIMMONS Provider:?Keagan Bhagat MD :1960???Age:64 Y???Sex:Female D ate:07/03/2024 Address:[address] [id number] Pcp:Ulysses Bustamante MD Subjective: * Chief Complaints: * ???1. Hurtado's. * Medical History:? Objective: * Vitals:? Assessment: * Assessment: 1.?Hurtado''s esophagus with out dysplasia - K22.70 (Primary)??? Plan: * Treatment: * Procedure Codes:?73195 UPPER GI ENDOSCOPY, BIOPSY * * The named appointment provid er may or may not be the originator of this progress note, and it is not deemed complete until electronically signed by the appointment provider. Sign off status: Pending * Provider:?Keagan Bhagat MD Date:?1 09/02/2023 Generated for Jean Carlos martines/Laurent/eTransmitting on:?12/24/2024 01:52 PM EDT
--- OUTSIDE RECORDS SUMMARY | 2024-12-24 13:52 | XMS_ITS ---
Author Organization [facility] Address [address] [place] [address] Care Team Providers Care Carbon Dioxide Operator Name Role Phone Robby CANTRELL, Ulysses Primary Care Provider Unavailab nehemiah Bhagat Jr, Keagan Unavailable REASON FOR VISIT pathology/waiting on pt call back Encounters Encounter Location Date Provider Diagnosis [facility] [address] [place] [address] 07/06/2024 Keagan Bhagat Jr Plan Of Treatment No Information Progress Notes * ISIDRO SIMMONS LDOB:[birth year] (64 yo F)Acc No.[id number]:07/06/2024 Patient:?ISIDRO SIMMONS :1960???Age:64 Y???Sex:Female Address:[address], [place], [address] * true * Date:? Generated for Printi ng/Faterrieg/eTransmitting on:?12/24/2024 01:52 PM EDT
--- OUTSIDE RECORDS SUMMARY | 2024-12-24 13:53 | XMS_ITS ---
Author Organization [facility] Address [address] [place] [address] Care Team Providers Care Sewer Pipe Press Operator Name Role Phone Robby CANTRELL, Ulysses Primary Care Provider Keagan Godwin Jr Unavailable Allergies Allergen (clinical drug ingredient) Drug/Non Drug Allergy documented on EMR Reaction Allergy Type Onset Date Status peanut allergenic extract Peanut (Diagnostic) Unknown Drug Allergy Active Chocolate Concentrate Unknown Drug Allergy Active REASON FOR VISIT Patient presents today for hurtado's Medications Medication SIG (Take, Route, Frequency, Duration) Notes Start Date End Date Status Omeprazole 40 MG TAKE 1 CAPSULE BY MOUTH EVERY DAY 30 MINUTES BEFORE MORNING MEAL for 90 Active Alendronate Sodium 70 MG Oral for 84 Active Multi For Her 50+ - as directed Orally 12/16/2021 Active levETIRAcetam 1000 MG Oral for 90 500 mg x 2 a day Active Phenytoin Sodium Extended 100 MG Oral for 90 200 mg twice a day Active Atorvastatin Calcium 20 MG 1 tablet Orally Once a day for 30 day(s) Active Immunizations Vaccine Route Administration Date Status Comme nts Influenza Unknown 06/11/2024 Refused Social History Tobacco Use: Social History Observation Description Date Details (start date - stop date) Never Smoker NA - NA Tobacco Use/Smoking Question Answer Notes Patient is a nonsmoker Alcohol Screen Question Answer Notes Did you have a drink containing alcohol in the p ast year? 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 We recommended she resume omeprazole. She can take this opposite her dose for Keppra. This should help with the interaction. She is being tapered off Keppra by her neurologist. If she has problems, she is advised to let us know. Repeat endoscopy will be arranged because of her history of Hurtado's esophagus. She is aware risks and benefits and agrees to proceed. 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 Patient presents today for hurtado's. * HPI: ???New symptom(s):? Isidro is a pleasant 64-year-old woman seen today in followup. She was ast seen a year ago, and at that time begin pantoprazole due to ineffective reflux control on omeprazole. Since that time, she reports reflux symptoms are under good control. She switch back to omeprazole but stopped this one month ago secondary to dizziness, which she thought was related to an interaction with Keppra. We discussed this today. ?Her last endoscopy in december of 2021 showed focal areas of intestinal metaplasia for which 2 year followup was recommended. We discussed this as well. She has no dysphagia, hematemesis, or melena. * Medical History:?Gastroesoph ageal reflux disease, EGD 12/30/21, esophagus biopsy with focal areas of intestinal metaplasia, two-year followup recommended, Elevated cholesterol, Seizure disorder, Osteoporosis, Colonoscopy 12/30/21, normal, ten- year followup.. * Surgical History:?fractured right hip 1988, fracture left knee 2018 , Cholecystectomy , Wrist fractures . * Hospitalization/Major Diagno stic Procedure:?seizure june. * Family History:?Father: dece ased.?Mother: , diagnosed with HTN (hypertension), Diabetes.? No family history of colon cancer, liver cancer. * Social History:?Tobacco Use:?Tobacco Use/Smoking?Patient is a?nonsmoker.?Drugs/Alcohol:?Alcohol Screen?Did you have a drink containing alcohol in the past year??No,?Points?0,?Interpretation?Negative.?Miscellaneous:?Marital status: . Occupation: unemployed. * Medications:?Taking Atorvast atin Calcium 20 MG Tablet 1 tablet Orally Once a day, Taking levETIRAcetam 1000 MG Tablet Oral , Notes: 500 mg x 2 a day, Taking Phenytoin Sodium Extended 100 MG Capsule Oral , Notes: 200 mg twice a day, Taking Alendronate Sodium 70 MG Tablet Oral , Taking Multi For Her 50+ - Tablet as directed Orally , Taking Omeprazole 40 MG Capsule Delayed Release TAKE 1 CAPSULE BY MOUTH EVERY DAY 30 MINUTES BEFORE MORNING MEAL , Medication List reviewed and reconciled with the patient * Allergies:?Chocolate Concent rate, Peanut (Diagnostic). Objective: * Vitals:?Wt: 169 lb 4 oz, Ht: 60 in, BMI:33.05 Index, BP: 118/72 mm Hg, Temp: 97.1. * Examination: ???General Examination: ???On examination today, she appears well. Skin is anicteric. Lungs are clear. Heart shows regular rate and rhythm. Abdomen is soft without focal masses or tenderness. Extremities are without edema. Assessment: * Assessment: 1.?Hurtado's esophagus witho ut dysplasia - K22.70 (Primary)? Currently, she is doing well . We recommended she resume omeprazole. She can take this opposite her dose for Keppra. This should help with the interaction. She is being tapered off Keppra by her neurologist. If she has problems, she is advised to let us know. Repeat endoscopy will be arranged because of her history of Hurtado's esophagus. She is aware risks and benefits and agrees to proceed. Plan: * Treatment: Notes: Hurtado esophagus material was printed?? * Immunizations:? Influenza (Not administered - Refused: Patient decision) * Procedure Codes:?3017F COLOR ECTAL CA SCREEN DOC REV, G9903 Pt scrn tbco id as non user, G9745 DOC RSN FOR NOT SCREEN/REC F/U HBP * Follow Up:?1 Year * * Sign off status: Completed true * Provider:?Keagan Bhagat MD Date:?1 Generated for Printi bobbi/Laurent/eTransmitting on:?12/24/2024 01:52 PM EDT History and Physical Notes * HPI (History of Present Illness) Category Sub-Category Detail Notes Category Not es New symptom(s) Isidro is a pleasant 64-year-old woman seen today in followup. She was ast seen a year ago, and at that time begin pantoprazole due to ineffective reflux control on omeprazole. Since that time, she reports reflux symptoms are under good control. She switch back to omeprazole but stopped this one month ago secondary to dizziness, which she thought was related to an interaction with Keppra. We discussed this today. Her last endoscopy in december of 2021 showed focal areas of intestinal metaplasia for which 2 year followup was recommended. We discussed this as well. She has no dysphagia, hematemesis, or melena. Examination Category Sub-Category Detail Notes Category Not es General Examination On exami nation today, she appears well. Skin is anicteric. Lungs are clear. Heart shows regular rate and rhythm. Abdomen is soft without focal masses or tenderness. Extremities are without edema.
== END 2024-12-24 12:27 | disposition home or self-care (01) ==
LOC: HO.MAMMO 12:26
PROVIDERS: PCP Internal Medicine; Visit Provider Internal Medicine
DX: Z12.31 Encounter for screening mammogram for malignant neoplasm of breast (principal)
CPT/HCPCS: 77063; 77067

== ENCOUNTER → 2024-12-24 12:45 | Outpatient (BNV) | payer OTHER, SELFPAY | PROVIDERS: PCP Internal Medicine; Visit Provider Internal Medicine | DX: Z12.31 Encounter for screening mammogram for malignant neoplasm of breast (principal) | CPT/HCPCS: 77063; 77067 ==

== ENCOUNTER 2025-05-20 09:52 | Outpatient (AMB) | payer OTHER, SELFPAY ==
--- OUTSIDE RECORDS SUMMARY | 2024-07-03 07:00 | XMS_ITS ---
Author Organization 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 Encounters Encounter Location Date Provider Diagnosis [facility] Outpatient [address] [place], [place] [phone] 07/03/2024 Keagan Bhagat Jr Hurtado''s esophagus without dysplasia K22.70 Assessments Encounter Date Diagnosis (ICD Code) Assessment Notes Treatment Notes Treatment Clinical Notes Section Notes 07/03/2024 Hurtado''s esophagus without dysplasia (ICD-10 - K22.70) Plan Of Treatment No Information Progress Notes * ISIDRO SIMMONS LDOB:[birth year] (64 yo F)Acc No.[id number]:07/03/2024 EGD/MAC Patient: ISIDRO ANNE Provider: Jessica Bhagat MD :1960 A ge:64 Y S ex:Female Date:07/03/2024 Address:[address] [id number] Pcp:Ulysses Bustamante (RETIRED) MD Subjective: * Chief [...] Pending * Provider: Jessica Bhagat MD Date: 1 09/02/2023 Generated for Jean Carlos martines/Laurent/Roxaneitting on: 0 05/20/2025 10:50 AM EDT
[2025-05-20 09:58] VITALS: BP 131/62; PULSE 69; RESP 16; TEMP 36.1; O2SAT 96; BMI 32.6
--- NOTE | 2025-05-20 09:58 | A.OFFPC_ITS ---
Vital Signs 05/20/25 09:58 Height 5 ft 0.75 in Weight 171 lb 4 oz BMI 32.6 BP 131/62 Blood Pressure Location Rt brachial Position Sitting Respiration 16 Pulse 69 Pulse Source Pulse Oximeter Temp 97.0 F Temp Source Temporal Artery Scan Pulse Oximetry (%) 96 Oxygen Delivery Method Room Air Intake Visit Reasons: Establish Care Accompanied by: Self / Same As Patient Allergies peanut Allergy (Severe, Verified 05/20/25 10:15) Anaphylaxis chocolate flavor Allergy (Unknown, Verified 05/20/25 10:15) Unknown amoxicillin (From Augmentin) Adverse Reaction (Verified 05/20/25 10:28) Abdominal Pain clavulanic acid (From Augmentin) Adverse Reaction (Verified 05/20/25 10:28) Abdominal Pain Medication List - Last Reconciled 05/20/25 by Billie Valdivia PA-C atorvastatin 1 tab PO DAILY levetiracetam 500 mg PO BID 90 days omeprazole 40 mg PO QAM phenytoin sodium extended (Dilantin Extended) 200 mg (2 x 100 mg) PO BID 90 days Tobacco use date assessed: 05/20/25 Dental Screening Dental Screen Date: 05/20/25 Did you have a dental visit in the last 12 months?: No HPI Establish Care HPI Details The patient is a 64-year-old female presenting for a new patient appointment and management of chronic conditions. The patient has a history of thrombocytopenia, which began after undergoing plasmapheresis. Her platelet counts have consistently been low, sometimes dropping below 100,000, but she was advised by a blade filer that there was no cause for concern. She has not seen a blade filer in several years. She also has a history of leukopenia, with her last recorded white blood cell count being 4,200, which is below the normal range. This has been a persistent issue, but no specific interventions have been undertaken. The patient was diagnosed with osteopenia in 2021 and was on Fosamax. A follow- up bone density scan is planned to assess the effectiveness of the treatment. She has hyperlipidemia, with her last LDL cholesterol level recorded at 122 mg/dL, which is slightly elevated. She is on atorvastatin for management. The patient has a seizure disorder for which she is on Keppra and Dilantin. She has been under the care of a neurologist since the . She also has gastroesophageal reflux disease and is taking omeprazole for management. The patient reports a history of hematuria, for which she underwent a cystoscopy. No pain or urinary tract infection was associated with this finding. Recently, she developed symptoms of an upper respiratory infection after being caught in the rain, which she is managing with Mucinex. She denies fever but reports yellowish-green sputum. 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 - Housing: Staying in an , recently cl eaned due to mice infestation. - Family Status: Caring for grandchildre n and ex- who has had a stroke. [facility] Medical History (Updated 05/20/25 @ 10:40 by Billie Valdivia PA-C) Upper respiratory infection Hematuria Hyperlipidemia LDL goal <100 Osteopenia Leukopenia Thrombocytopenia Cough History of mammogram (~12/24/24) History of seizures Microscopic hematuria GERD (gastroesophageal reflux disease) History of pulmonary embolus (PE) Elevated cholesterol Hip fracture, right Seizure Osteoporosis Surgical History (Updated 05/20/25 @ 10:40 by Billie Valdivia PA-C) History of endoscopy (~12/31/21) History of surgery on wrist Hx of knee surgery History of esophagogastroduodenoscopy (EGD) History of colonoscopy (~12/31/21) H/O: hysterectomy History of hip surgery History of cholecystectomy Family History Mother Diabetes CHF (congestive heart failure) COPD (chronic obstructive pulmonary disease) Father Stroke Social History Housing: Apartment Are you a primary career and guidance counselor to a significant other at home: No Do you presently have visiting nurse or other home services: No Alcohol intake: current Alcohol intake frequency: holidays/special occasions only Patient Tobacco Use Status: Never used Tobacco service: No Current occupational status: employed and unemployed Cognitive needs: No Hearing needs: No Vision needs: Yes (reading glass/cheaters) Questionnaire PHQ-9 Over the last 2 weeks, how often have you been bothered by any of the following problems? 1. Little interest or pleasure in doing things: not at all 2. Feeling down, depressed, or hopeless: not at all 3. Trouble falling or staying asleep, or sleeping too much: not at all 4. Feeling tired or having little energy: not at all 5. Poor appetite or overeating: not at all 6. Feeling bad about yourself - or that you are a failure or have let yourself or your family down: not at all 7. Trouble concentrating on things, such as reading the newspaper or watching television: not at all 8. Moving or speaking so slowly that other people could have noticed. Or the opposite - being so fidgety or restless that you have been moving around a lot more than usual: not at all 9. Thoughts that you would be better off or of hurting yourself in some way: not at all Total score: 0 Depression Screening Interpretation: Negative Depression Screening Done: Yes 72978 - PHQ-9 Billing: Yes Source: Developed by Drs. Johnathon Chatman, Brisa Harvey, Gigi Carter and colleagues, with an educational jesus from [employer]. Thrive Questionnaire Date Thrive assessed: 05/20/25 I am a: Patient What is your living situation today?: I have a steady place to live Within the past 12 months, did the food you bought not last and you didn't have the money to get more?: Never true Within the past 12 months, did you worry whether your food would run out before you got money to buy more?: Never true Do you have trouble paying for medicines?: No Do you have trouble getting transportation to medical appointments?: No Do you have trouble paying your heating and electricity bill?: No Do you have trouble taking care of your child, family member or friend?: No Do you have trouble with day-to-day activities such as bathing, preparing meals, shopping, managing finances, etc.?: No Are you currently unemployed and looking for a job?: No Are you interested in more education?: No Please select the resources that you would like help with: None THRIVE Score: 0 AUDIT C Alcohol Use Questionnaire (AUDIT-C) 1. How often do you have a drink containing alcohol?: Monthly or less 3. How often do you have six or more drinks on one occasion?: Less than monthly Total Score: 2 Score Reviewed/Action Taken: No ALYSHA-7 AMB Questionnaire ALYSHA-7 Date ALYSHA - 7 assessed: 05/20/25 Feeling nervous, anxious, or on edge: 0 = Not at all Not being able to stop or control worryin = Not at all Worrying too much about different things: 0 = Not at all Trouble relaxin = Not at all Being so restless that it is hard to sit still: 0 = Not at all Becoming easily annoyed or irritable: 0 = Not at all Feeling afraid as if something awful might happen: 0 = Not at all Total ALYSHA-7 score (0-4 normal; 5-9 mild; 10-14 moderate; 15-21 severe): 0 Source: Developed by Drs. Johnathon Chatman, Brisa Harvey, Gigi Carter and colleagues, with an educational jesus from [employer]. ALYSHA-7 Assessment Billing ALYSHA-7 Assessment Tool: ALYSHA-7 Assessment 13903 Review of Systems Const Details: - General: Denies fever. - Respiratory: Reports yellowish-green sputum, denies dyspnea. - Neurological: Denies recent seizures. - Gastrointestinal: Denies nausea or vomiting. All systems reviewed & are unremarkable except as noted in HPI and below Physical exam (Primary Care) Vital Signs: Last Vital Signs Temp 97.0 F 05/20/25 09:58 Pulse 69 05/20/25 09:58 Resp 16 05/20/25 09:58 BP 131/62 05/20/25 09:58 Pulse Ox 96 05/20/25 09:58 Oxygen Delivery Method Room Air 05/20/25 09:58 Care Plan Goal for BP management: <140/90 at Goal BMI result Body Mass Index 32.6 Tobacco/Smoking Status: Tobacco use Status Tobacco use date assessed 05/20/25 05/20/25 10:01 Patient Tobacco Use Status Never used Tobacco 05/20/25 10:10 PHQ-9: PHQ-9 Score PHQ-9: Total score 0 05/20/25 10:15 Depression Screening Interpretation: Negative Thrive Assessment: Date of Thrive Assessment Date Thrive assessed 05/20/25 05/20/25 10:01 Const Other: Appearance: Alert. Oriented X3. No acute distress. Head: Normal external exam. Normocephalic. Atraumatic. Eyes: Pupils are equal, round, and reactive to light. Extraocular movements intact. Conjunctiva and sclera normal. Eyelids normal. Ears: External auditory canal normal. Tympanic membranes normal. Throat: Pharynx normal. Uvula midline. Moist mucous membranes. Neck: Normal inspection. Neck supple. Full range of motion. Cardiovascular: Normal heart rate and rhythm. Heart sound normal. No murmurs noted. Pulses normal throughout. Respiratory: No respiratory distress. Painless inspiration. Breath sounds normal. No wheezes/rales/rhonchi noted. Chest nontender. No accessory muscle usage noted or decreased air movement noted. Abdomen: Soft and nontender. No distention noted. No organomegaly noted. Back: No costovertebral angle tenderness. Full range of motion noted. Skin: Skin warm and dry. Normal skin color. Normal skin turgor. No rashes/lesions/lacerations noted. Extremities: No lower extremity edema. Extremities exhibit normal range of motion. Extremities nontender. Neuro: Oriented X 3. No motor deficit. No sensory deficit. Reflexes normal. Office Procedures Flu Questionnaire Does the patient have a severe egg allergy?: No Does the patient have severe life threatening allergies?: No Does the patient have a fever or illness today?: No Has the patient ever had Guillain-[place] Syndrome?: No Has the patient ever had any past reaction to a flu shot?: Yes Immunizations Fluarix [id number] (PF) 45 mcg (15 mcg x 3)/0.5 mL IM syringe Performing Provider: Billie Valdivia PA-C [facility] Administered by: Carmencita David CMA on 05/20/25 10:17 Dose Route Admin Location Dispensed Lot Number Expiration Date [facility] Foreign Bank[employer] Teller 0.5 mL IM Right Deltoid 0.5 mL [id number] 02/18/26 [id number] [employer] VIS Given Date VIS Provided VIS Publication Date 05/20/25 Single Vaccine 24 Eligibility Eligibility Date Funding Source Not [facility] Eligible 05/20/25 Private Results Reviewed Results Reviewed: - Labs: Previous white blood cell count was 4,200 (normal range: 4,800-10,800). - Labs: Previous platelet count was 137,000 (normal range: 160,000-400,000). - Labs: LDL cholesterol was 122 mg/dL (should be less than 100 mg/dL). - Imaging: Bone density scan in 2021 showed osteopenia. - Imaging: Mammogram on 12/24/24 was normal. - Procedure: Colonoscopy and endoscopy on 07/03/2024 were negative. Coding Level of Care Code New Pt Level 4 (38460) Complex EM visit Add On G2211 Diagnoses Thrombocytopenia D69.6 Leukopenia D72.819 Osteopenia M85.80 Hyperlipidemia LDL goal <100 E78.5 History of seizures Z87.898 Hematuria R31.9 Upper respiratory infection J06.9 Additional Codes PHQ-9 - 45130 - PHQ-9 Billing: Yes ([id number]) ALYSHA-7 Assessment Billing - ALYSHA-7 Assessment Tool: ALYSHA-7 Assessment 69581 ([id number]) Assessment & Plan Assessment & Plan (1) Thrombocytopenia: Code(s): D69.6 - Thrombocytopenia, unspecified Category: Medical Plan: The patient has a history of thrombocytopenia, with platelet counts consistently low, sometimes below 100,000. A blade filer previously advised that there was no cause for concern. Blood work will be repeated to assess current levels, and a referral to a blade filer will be considered if necessary. (2) Leukopenia: Code(s): D72.819 - Decreased white blood cell count, unspecified Category: Medical Plan: The patient has a history of leukopenia, with a previous white blood cell count of 4,200. Blood work will be repeated to evaluate current levels and determine if further intervention is needed. (3) Osteopenia: Code(s): M85.80 - Other specified disorders of bone density and structure, unspecified site Category: Medical Plan: The patient was diagnosed with osteopenia in 2021 and was on Fosamax. A follow- up bone density scan is planned to assess the effectiveness of the treatment. (4) Hyperlipidemia LDL goal <100: Code(s): E78.5 - Hyperlipidemia, unspecified Category: Medical Plan: The patient has hyperlipidemia with an LDL cholesterol level of 122 mg/dL. She is on atorvastatin, and lipid levels will be rechecked to monitor the effectiveness of the treatment. (5) History of seizures: Code(s): Z87.898 - Personal history of other specified conditions Category: Medical Plan: The patient has a seizure disorder managed with Keppra and Dilantin. She has been stable under the care of her neurologist since the . (6) Hematuria: Code(s): R31.9 - Hematuria, unspecified Category: Medical Plan: The patient reports a history of hematuria, for which she underwent a cystoscopy. No pain or urinary tract infection was associated with this finding. Further evaluation will depend on future symptoms or findings. (7) Upper respiratory infection: Code(s): J06.9 - Acute upper respiratory infection, unspecified Category: Medical Plan: The patient developed symptoms of an upper respiratory infection, which she is managing with Mucinex. Antibiotics were prescribed for five to seven days to aid recovery. Plan Plan Patient was informed and verbally consented to the use of an ambient scribe for clinic note documentation during this visit. 1. Thrombocytopenia The patient has a history of thrombocytopenia, with platelet counts consistently low, sometimes below 100,000. A blade filer previously advised that there was no cause for concern. Blood work will be repeated to assess current levels, and a referral to a blade filer will be considered if necessary. 2. Leukopenia The patient has a history of leukopenia, with a previous white blood cell count of 4,200. Blood work will be repeated to evaluate current levels and determine if further intervention is needed. 3. Osteopenia The patient was diagnosed with osteopenia in 2021 and was on Fosamax. A follow- up bone density scan is planned to assess the effectiveness of the treatment. 4. Hyperlipidemia The patient has hyperlipidemia with an LDL cholesterol level of 122 mg/dL. She is on atorvastatin, and lipid levels will be rechecked to monitor the effectiveness of the treatment. 5. Seizure Disorder The patient has a seizure disorder managed with Keppra and Dilantin. She has been stable under the care of her neurologist since the . 6. Gastroesophageal Reflux Disease The patient has gastroesophageal reflux disease and is taking omeprazole for management. No changes to the current treatment plan were discussed. 7. Hematuria The patient reports a history of hematuria, for which she underwent a cystoscopy. No pain or urinary tract infection was associated with this finding. Further evaluation will depend on future symptoms or findings. 8. Upper Respiratory Infection The patient developed symptoms of an upper respiratory infection, which she is managing with Mucinex. Antibiotics were prescribed for five to seven days to aid recovery. During the visit, I discussed with the patient the need to repeat blood work to monitor her thrombocytopenia and leukopenia. We also talked about the importance of a follow-up bone density scan to assess the effectiveness of Fosamax for her osteopenia. I recommended rechecking her lipid levels to evaluate the management of her hyperlipidemia with atorvastatin. For her upper respiratory infection, I prescribed antibiotics for five to seven days and advised her to monitor her symptoms. We also discussed the option of a chest x-ray due to her concerns about potential exposure to hantavirus from mice droppings in her RV. Orders: Orders C Reactive Protein Today Z00.00 - Encounter for general adult medical examination without abnormal findings Complete Blood Count Auto Diff Today Z00.00 - Encounter for general adult medical examination without abnormal findings Comprehensive [place]. Panel Fast Today Z00.00 - Encounter for general adult medical examination without abnormal findings Hemoglobin A1c Today Z00.00 - Encounter for general adult medical examination without abnormal findings Liver Panel Today Z00.00 - Encounter for general adult medical examination without abnormal findings Vitamin B12 and Folate Today Z00.00 - Encounter for general adult medical examination without abnormal findings Vitamin D 25-OH Total Today Z00.00 - Encounter for general adult medical examination without abnormal findings TSH reflex Free T4 Today Z00.00 - Encounter for general adult medical examination without abnormal findings Phenytoin Dilantin Today Z87.898 - Personal history of other specified conditions XR chest 2V Today R05.9 - Cough, unspecified Influenza 3580-4444 Immunization Today Z23 - Encounter for immunization Lipid Panel Today Z00.00 - Encounter for general adult medical examination without abnormal findings Magnesium Today Z00.00 - Encounter for general adult medical examination without abnormal findings UA CC w/rflx Micro + Cult Today Z00.00 - Encounter for general adult medical examination without abnormal findings Ferritin Today D64.9 - Anemia, unspecified IRON PROFILE Today D64.9 - Anemia, unspecified Levetiracetam Keppra Today Z87.898 - Personal history of other specified conditions XR DEXA axial skeleton Today M81.0 - Age-related osteoporosis without current pathological fracture Medications: New doxycycline monohydrate 100 mg PO BID 14 tabs 0RF 7 days Patient Instructions: - Get blood work done to monitor platelet and white blood cell counts. - Schedule a follow-up bone density scan. - Continue taking atorvastatin and recheck lipid levels. - Take prescribed antibiotics for five to seven days for upper respiratory infection. - Consider getting a chest x-ray due to potential exposure to hantavirus.
--- OUTSIDE RECORDS SUMMARY | 2025-05-20 10:50 | XMS_ITS | Patient Health Record ---
Author Organization [facility] Address [address] [place] [address] Care Team Providers Care Pie Maker Name Role Phone Robby (RETIRED) Ulysses CANTRELL Primary Care Provider Unavailable Keagan Bhagat Jr Unavailable Allergies Allergen (clinical drug ingredient) Drug/Non Drug Allergy documented on EMR Reaction Allergy Type Onset Date Status peanut allergenic extract Peanut (Diagnostic) Unknown Drug Allergy Active Chocolate Concentrate Unknown Drug Allergy Active Results Component Value Reference Range Notes Pathology Reviewed date:07/06/2024 08:08:06 AM Interpretation: Performing Lab:[facility], [address] [place] [id number] Notes/Report: Reason For Referral No Information Medications Medication SIG (Take, Route, Frequency, Duration) [...] Administration Date Status Comme nts Influenza Unknown 09/09/2021 Administered Influenza Unknown 2022 Administered Influenza Unknown 06/11/2024 Refused Social History Tobacco Use: Social History Observation Description Date Details (start date - stop date) Never Smoker NA - NA Tobacco Use/Smoking Question Answer Notes Patient is a nonsmoker Alcohol Screen Question Answer Notes Did you have a drink containing alcohol in the p ast year? 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 Problem 52311581 Oropharyngeal dysphagia (R13.12) Active confirmed Problem Esophageal reflux finding (620597541) Gastroesophageal reflux (K21.9) Active confirmed Problem Dumont's esophagus (219961775) Dumont''s esophagus without dysplasia (K22.70) Active confirmed Problem 442582719 Gastroesophageal reflux disease, unspecified whether esophagitis present (K21.9) Active confirmed Vital Signs Temperature 97.1 degrees Fahrenheit 06/11/2024 Blood pressure diastolic 72 mm Hg 06/11/2024 Height 60 in 06/11/2024 Blood pressure systolic 118 mm Hg 06/11/2024 Weight 169 lb 4 oz lbs 06/11/2024 BMI 33.05 kg/m2 06/11/2024 Encounters Encounter Location Date Provider Diagnosis [facility] [place] Out[place] [address] [place] [phone] 07/03/2024 Keagan Bhagat Jr Dumont''s esophagus without dysplasia K22.70 [facility] [address] [place] [id number] 06/11/2024 Keagan Bhagat Jr Dumont's esophagus without dysplasia K22.70 [facility] [address] [facility] [address] [place] [id number] 07/06/2024 Keagan Bhagat Jr Assessments Encounter Date Diagnosis (ICD Code) Assessment Notes Treatment Notes Treatment Clinical Notes Section Notes 07/03/2024 Dumont''s esophagus without dysplasia (ICD-10 - K22.70) 06/11/2024 Dumont's esophagus without dysplasia (ICD-10 - K22.70) Dumont esophagus material was printed Currently, she is doing well. We recommended she resume omeprazole. She can take this opposite her dose for Keppra. This should help with the interaction. She is being tapered off Keppra by her neurologist. If she has problems, she is advised to let us know. Repeat endoscopy will be arranged because of her history of Dumont's esophagus. She is aware risks and benefits and agrees to proceed. Plan Of Treatment Pending Test Test Name Order Date XR BARIUM SWALLOW-ESOPHAGUS 06/02/2022 Future Test Test Name Order Date UPPER GI ENDOSCOPY 12/16/2021 UPPER GI ENDOSCOPY 06/11/2024 Insurance Providers Payer Name Payer Address Payer Phone Subscriber Number Group Number Insured Name Patient Relationship to Insured Coverage Start Date Coverage End Date [employer] [id number] [place] [id number] ISIDRO SIMMONS Self - patient is the insured Medical (General) History Medical History History ICD Code Gastroesophageal reflux dise ase, EGD 12/30/21, esophagus biopsy with focal areas of intestinal metaplasia, two-year followup recommended Elevated cholesterol Seizure disorder Osteoporosis Colonoscopy 12/30/21, normal, ten-year fo llowup. Surgical History Surgery Date(Month/Year) fractured right hip 1988 fracture left knee 2018 Cholecystectomy Wrist fractures Hospitalization History Reason Date(Month/Year) seizure june
== END 2025-05-20 10:35 | disposition home or self-care (01) ==
LOC: HO.HMCSH 09:52
PROVIDERS: PCP Physician Assistant Medical; Visit Provider Physician Assistant Medical
DX: D69.6 Thrombocytopenia, unspecified (principal); D72.819 Decreased white blood cell count, unspecified; M85.80 Other specified disorders of bone density and structure, unspecified site; E78.5 Hyperlipidemia, unspecified; Z87.898 Personal history of other specified conditions; R31.9 Hematuria, unspecified; J06.9 Acute upper respiratory infection, unspecified; Z23 Encounter for immunization

== ENCOUNTER → 2025-05-20 09:52 | Outpatient (BNVA) | payer OTHER, SELFPAY | PROVIDERS: PCP Physician Assistant Medical; Visit Provider Physician Assistant Medical | DX: K21.9 Gastro-esophageal reflux disease without esophagitis (principal); M85.80 Other specified disorders of bone density and structure, unspecified site; E78.5 Hyperlipidemia, unspecified; D69.6 Thrombocytopenia, unspecified; G40.909 Epilepsy, unspecified, not intractable, without status epilepticus; R31.9 Hematuria, unspecified; J06.9 Acute upper respiratory infection, unspecified; M81.0 Age-related osteoporosis without current pathological fracture; D64.9 Anemia, unspecified; Z23 Encounter for immunization | CPT/HCPCS: 90471; 90656; 96127 ==

== ENCOUNTER 2025-05-21 07:56 | Outpatient (REF) | payer OTHER, SELFPAY ==
--- OUTSIDE RECORDS SUMMARY | 2024-07-03 07:00 | XMS_ITS ---
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 Encounters Encounter Location Date Provider Diagnosis [facility] [place] [address] [place], [place] [phone] 07/03/2024 Keagan Bhagat Jr Hurtado''s esophagus without dysplasia K22.70 Assessments Encounter Date Diagnosis (ICD Code) Assessment Notes Treatment Notes Treatment Clinical Notes Section Notes 07/03/2024 Hurtado''s esophagus without dysplasia (ICD-10 - K22.70) Plan Of Treatment No Information Progress Notes * ISIDRO SIMMONS LDOB:[birth year] (64 yo F)Acc No.[id number]:07/03/2024 EGD/MAC Patient: ISIDRO ANNE Provider: Jessica Bhagat MD :1960 A ge:64 Y S ex:Female Date:07/03/2024 Address:[address] [id number] Pcp:Ulysses Bustamante (RETIRED) MD Subjective: * Chief [...] Generated for Jean Carlos martines/Laurent/Roxaneitting on: 0 05/21/2025 08:02 AM EDT
--- NOTE | ~2025-05-21 | XR_ITS ---
EXAMINATION: XR CHEST 2 VIEWS HISTORY: R05.9 - Cough, unspecified COMPARISON: Comparison is made with the prior examination dated 04/16/2024. FINDINGS: PA and lateral views of the chest are submitted. The lungs are expanded and clear. There is no pleural effusion, pneumothorax, or pulmonary vascular congestion. The heart is normal in size. There is degenerative disc disease of the spine. XR/XR chest 2V IMPRESSION: No acute cardiopulmonary abnormality. Electronically signed by: Johnathon Harris MD 05/21/2025 08:45 AM EDT
--- OUTSIDE RECORDS SUMMARY | 2025-05-21 08:02 | XMS_ITS | Patient Health Record ---
Author Organization [facility] Address [address] [place] [address] Care Team Providers Care Shift Superintendent Caustic Cresylate Name Role Phone Robby (RETIRED) Ulysses CANTRELL Primary Care Provider Unavailable Keagan Bhagat Jr Unavailable [phone] Allergies Allergen (clinical drug ingredient) Drug/Non Drug Allergy documented on EMR Reaction Allergy Type Onset Date Status peanut allergenic extract Peanut (Diagnostic) Unknown Drug Allergy Active Chocolate Concentrate Unknown Drug Allergy Active Results Component Value Reference Range Notes Pathology Reviewed date:07/06/2024 08:08:06 AM Interpretation: Performing Lab:[facility], [address] [place] [phone] Notes/Report: Reason For Referral No Information Medications [...] Problem Status W/U Status Risk Notes Problem 704049855 Colon cancer screening (Z12.11) Active confirmed Problem 943420360 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 Problem 50039078 Oropharyngeal dysphagia (R13.12) Active confirmed Problem Esophageal reflux finding (120205191) Gastroesophageal reflux (K21.9) Active confirmed Problem Dumont's esophagus (915598033) Dumont''s esophagus without dysplasia (K22.70) Active confirmed Problem 384301499 Gastroesophageal reflux disease, unspecified whether esophagitis present (K21.9) Active confirmed Vital Signs Temperature 97.1 degrees Fahrenheit 06/11/2024 Blood pressure diastolic 72 mm Hg 06/11/2024 Height 60 in 06/11/2024 Blood pressure systolic 118 mm Hg 06/11/2024 Weight 169 lb 4 oz lbs 06/11/2024 BMI 33.05 kg/m2 06/11/2024 Encounters Encounter Location Date Provider Diagnosis [facility] Outpatient [address] [place] [id number] 07/03/2024 Keagan Bhagat Jr Dumont''s esophagus without dysplasia K22.70 [facility] [address] [place] [phone] 06/11/2024 Keagan Bhagat Jr Dumont's esophagus without dysplasia K22.70 [facility] [address] [facility] [address] [place] [phone] 07/06/2024 Keagan Bhagat Jr Assessments Encounter Date [...] Insured Coverage Start Date Coverage End Date [employer] [employer] [address] [place] [phone] [id number] ISIDRO SIMMONS Self - patient is the [...]
[2025-05-21 10:34] LABS: Appearance Urine Clear; Glucose Urine UA Negative (Negative); PH 5.5 (5.0-9.0); Specific Gravity - Urine 1.015 (1.005-1.025); UMIC TRIGGER UACC YES
[2025-05-21 11:15] LABS: Hemoglobin 14.0 g/dl (12.0-16.0); Imm Gran Abs Auto 0.02 X10*3/uL (0.00-0.03); Imm Gran Pct Auto 0.4 % (0.0-0.4); MANUAL DIFF FLAG SCAN; NRBC Abs Auto 0.000 X10*3/uL (0.0-0.012); NRBC Pct Auto 0.0 /100WBC (0.0-0.2); PLT CLUMP 1; SCAN SMEAR FLAG 1
[2025-05-21 11:17] LABS: Hematocrit 41.5 % (37.0-47.0); Lymphocytes Absolute Auto 1.7 X10*3/uL (1.2-4.9); Mean Corpuscular HGB Conc 33.7 g/dl (31.0-35.0); Mean Corpuscular Hemoglobin 30.0 pg (27.0-33.0); Mean Corpuscular Volume 89.1 fL (80.0-98.0); Red Blood Count 4.66 X10*6/uL (4.20-5.50)
[2025-05-21 11:41] LABS: White Blood Count 5.0 X10*3/uL (4.8-10.8)
[2025-05-21 11:42] LABS: Platelet Count 142 X10*3/uL (160-400)
[2025-05-21 11:48] LABS: Alanine Aminotransferase 17 U/L (0-31); Albumin Level 4.2 g/dL (3.5-5.0); Alkaline Phosphatase 57 U/L (39-117); Anion Gap 12 (12-20); Aspartate Amino Transferase 25 U/L (5-31); Blood Urea Nitrogen 9 mg/dL (9-16); Calcium 9.0 mg/dL (8.4-10.2); Carbon Dioxide 27 mmol/L (22-29); Chloride 106 mmol/L (96-108); Cholesterol 151 mg/dL (<200); Estimated Glomerular Filt Rate > 60; Ferritin 62 ng/mL (10-250); HDL Cholesterol 54 mg/dL (>40); Iron 87 mcg/dL (30-160); Magnesium 2.2 mg/dL (1.6-2.6); Percent Iron Saturation 39 % (15-50); Potassium 4.4 mmol/L (3.3-5.1); Sodium 141 mmol/L (135-145); Total Iron Binding Capacity 222 mcg/dL (228-428); Total Protein 7.7 g/dL (6.5-8.0); Triglycerides 57 mg/dL (<150); Unsaturated Iron Binding 135 ug/dL
[2025-05-21 11:55] LABS: Folate 5.0 ng/mL (> or = 4.0); Vitamin B12 554 pg/mL (200-900)
[2025-05-23 18:43] LABS: Levetiracetam Keppra 4.7 mcg/mL (6.0-46.0)
== END 2025-05-21 07:57 | disposition home or self-care (01) ==
LOC: HO.HMGCX 07:56
PROVIDERS: PCP Physician Assistant Medical; Visit Provider Physician Assistant Medical
DX: Z00.00 Encounter for general adult medical examination without abnormal findings (principal); Z13.6 Encounter for screening for cardiovascular disorders; Z13.1 Encounter for screening for diabetes mellitus; Z51.81 Encounter for therapeutic drug level monitoring; D64.9 Anemia, unspecified; R05.9 Cough, unspecified; Z87.898 Personal history of other specified conditions
CPT/HCPCS: 36415; 71046; 80053; 80061; 80076; 80177; 80185; 81001; 82248; 82306; 82607; 82728; 82746; 83036; 83540; 83735; 84443; 85025; 86140

== ENCOUNTER → 2025-05-21 08:36 | Outpatient (BNV) | payer OTHER, SELFPAY | PROVIDERS: PCP Physician Assistant Medical; Visit Provider Radiology Diagnostic Radiology | DX: R05.9 Cough, unspecified (principal) | CPT/HCPCS: 71046 ==

== ENCOUNTER 2025-05-24 09:42 | Outpatient (AMB) | payer OTHER, SELFPAY ==
--- NOTE | 2025-05-24 09:52 | A.OFFVIS_ITS ---
Intake Visit Reasons: 1 year follow up Allergies peanut Allergy (Severe, Verified 05/24/25 10:03) Anaphylaxis chocolate flavor Allergy (Unknown, Verified 05/24/25 10:03) Unknown amoxicillin (From Augmentin) Adverse Reaction (Verified 05/24/25 10:03) Abdominal Pain clavulanic acid (From Augmentin) Adverse Reaction (Verified 05/24/25 10:03) Abdominal Pain Medication List - Last Reconciled 05/24/25 by Mendy Medel CNP atorvastatin 1 tab PO DAILY doxycycline monohydrate 100 mg PO BID 7 days levetiracetam 500 mg PO BID 90 days omeprazole 40 mg PO QAM phenytoin sodium extended (Dilantin Extended) 200 mg (2 x 100 mg) PO BID 90 days HPI Comments Details: She was doing okay. She was taking Dilantin 200mg twice a day and levetiracetam 500mg twice a day. No missed doses. No medication side effects. No recent seizures. Last documented seizure was 03/2024. She had labs done a few days ago by PCP which showed elevated Dilantin levels. She was not aware drug levels were being checked and took medication prior to getting labs done. She was currently on family medical leave from work, helping to care for (almost) 3-year-old grand-daughter, grandson, and ex-. 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 She has a long history of seizures that were well controlled with Dilantin 400 mg twice a day with drug levels around 15 mcg per mL. She had no side effects from the medicine and was seizure free for more than 10 years. She then moved to [place] around 2009 and was worked up with a local neurologist who thought that Dilantin was now an outdated medication, and started to wean her off the Dilantin to 300 mg a day and added Keppra 750 twice a day, and then thousand twice a day. During this transition, she had multiple seizures, but had been seizure-free for about 1.5 years until 07/08/2021 when she had 2 generalized seizures, one of which was in the ER. Her Dilantin level was 3.2 and her levetiracetam level was 10. Her levetiracetam was increased to 1500 twice a day and she was discharged home and asked to follow up with neurology. The patient does not feel comfortable being off the Dilantin and said that she had no problems with it, no side effects and was completely seizure free for more than 10 years. The Keppra has not been as effective and she's been on a progressively increasing dose and still having periodic breakthrough seizures. In the past, she had one month of bad frontal headache, ears blocked, and off balance. [facility] Medical History (Updated 05/24/25 @ 10:00 by Mendy Medel CNP) Upper respiratory infection Hematuria Hyperlipidemia LDL goal <100 Osteopenia Leukopenia Thrombocytopenia Cough History of mammogram (~12/24/24) History of seizures Microscopic hematuria GERD (gastroesophageal reflux disease) History of pulmonary embolus (PE) Elevated cholesterol Hip fracture, right Seizure Osteoporosis Surgical History (Updated 05/20/25 @ 10:40 by Billie Valdivia PA-C) History of endoscopy (~12/31/21) History of surgery on wrist Hx of knee surgery History of esophagogastroduodenoscopy (EGD) History of colonoscopy (~12/31/21) H/O: hysterectomy History of hip surgery History of cholecystectomy Family History Mother Diabetes CHF (congestive heart failure) COPD (chronic obstructive pulmonary disease) Father Stroke Social History Housing: Apartment Are you a primary customer care team coach to a significant other at home: No Do you presently have visiting nurse or other home services: No Alcohol intake: current Alcohol intake frequency: holidays/special occasions only Patient Tobacco Use Status: Never used Tobacco service: No Current occupational status: employed and unemployed Cognitive needs: No Hearing needs: No Vision needs: Yes (reading glass/cheaters) Review of Systems Const Denies chills, Denies daytime sleepiness, Denies difficulty sleeping, Denies fatigue, Denies fever(s), Denies frequent falls, Denies headache(s), Denies increased appetite, Denies poor appetite, Denies snoring, Denies weakness, Denies weight gain and Denies weight loss Eyes Denies loss of vision ENT Denies vertigo, Denies dizziness, Denies headache(s) and Denies neck pain Card Denies chest pain at rest, Denies chest pain with activity, Denies syncope, Denies leg edema, Denies palpitations, Denies dyspnea and Denies dyspnea on exertion Resp Denies cough, Denies dyspnea, Denies dyspnea on exertion and Denies snoring GI Denies abdominal pain, Denies constipation, Denies heartburn, Denies diarrhea and Denies nausea Denies urinary frequency, Denies urinary incontinence and Denies urinary urgency Musc Denies abnormal gait, Denies back pain, Denies myalgias, Denies arthralgias, Denies neck pain, Denies numbness and Denies tingling Neuro Denies abnormal gait, Denies vertigo, Denies dizziness, Denies syncope, Denies frequent falls, Denies headache(s), Denies lack of coordination, Denies loss of vision, Denies memory loss, Denies numbness, Denies Other visual disturbances, Denies restless legs, Denies seizure-like activity, Denies tingling, Denies paresthesias, Denies tremor(s) and Denies weakness Psych Denies anxiety, Denies depression, Denies auditory hallucinations, Denies memory loss and Denies visual hallucinations Endo Denies fatigue and Denies palpitations Physical Exam Const Other: General Appearance:? normal, in no acute distress. Heart:? S1, S2 normal, no murmurs. Lungs:? clear anteriorly and posteriorly. Musculoskeletal:? normal. Extremities:? no edema. Psych:? alert, oriented, cognitive function intact, cooperative with exam. Neuro Other: Mental Status:?Normal attention, orientation, memory and affect.? Cranial Nerves:?Pupils are equal, round and reactive to light. External occular muscles are intact. Visual love are full. Face is symmetrical. Facial sensations are normal. Tongue is midline. Palate elevates symmetrically. Shoulder shrugging is normal. Hearing to bedside conversation is normal. Sensory Exam:?....? Coordination:?No ataxia,?no titubation.? Gait Exam: Within normal limits. Cerebellar Signs:?Eixant-kr-dwwc is okay. Extrapyramidal System:?No tremor, rigidity with normal facial expressions.? Pronator Drift:?Not present.? Involuntary Movements:?No tremors seen.? Speech:?Normal.? Results Reviewed Results Reviewed: Laboratory Tests 05/21/25 08:00 Phenytoin 28.2 H* Levetiracetam 4.7 L Assessment & Plan Assessment & Plan (1) Seizure disorder: Code(s): G40.909 - Epilepsy, unspecified, not intractable, without status epilepticus Category: Medical Plan: Lab results reviewed, Dilantin level elevated. She took medication before getting labs drawn. No medication side effects or s/s of toxicity. Will repeat labs, advised to get labs done in the morning before taking medication. Continue levetiracetam 500mg 1 tablet twice a day. Continue phenytoin sodium extended 100mg 2 capsules twice a day. Orders: Orders Phenytoin Dilantin Today G40.909 - Epilepsy, unspecified, not intractable, without status epilepticus Levetiracetam Keppra Today G40.909 - Epilepsy, unspecified, not intractable, without status epilepticus Coding Level of Care Code Est Pt Level 4 (94370) Diagnoses Seizure disorder G40.909
== END 2025-05-24 10:27 | disposition home or self-care (01) ==
LOC: HO.HSM 09:43
PROVIDERS: PCP Internal Medicine; Visit Provider Registered Nurse
DX: G40.909 Epilepsy, unspecified, not intractable, without status epilepticus (principal)
CPT/HCPCS: 99214

== ENCOUNTER 2025-05-27 08:19 | Outpatient (REF) | payer OTHER, SELFPAY ==
--- OUTSIDE RECORDS SUMMARY | 2024-07-03 07:00 | XMS_ITS ---
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 Encounters Encounter Location Date Provider Diagnosis [facility] Outpatient [address] [place], [place] [phone] 07/03/2024 Keagan Bhagat Jr Hurtado''s esophagus without dysplasia K22.70 Assessments Encounter Date Diagnosis (ICD Code) Assessment Notes Treatment Notes Treatment Clinical Notes Section Notes 07/03/2024 Hurtado''s esophagus without dysplasia (ICD-10 - K22.70) Plan Of Treatment No Information Progress Notes * ISIDRO SIMMONS LDOB:[birth year] (64 yo F)Acc No.[id number]:07/03/2024 EGD/MAC Patient: ISIDRO ANNE Provider: Jessica Bhagat MD :1960 A ge:64 Y S ex:Female Date:07/03/2024 Address:[address] [id number] Pcp:Ulysses Bustamante (RETIRED) MD Subjective: * Chief Complaints: * 1 . Hurtado's. * Medical History: Objective: * Vitals: Assessment: * Assessment: 1. B isaiah''s esophagus without dysplasia - K22.70 (Primary) Plan: * Treatment: * Procedure Codes: 4 3239 UPPER GI ENDOSCOPY, BIOPSY * * The named appointment provid er may or may not be the originator of this progress note, and it is not deemed complete until electronically signed by the appointment provider. Sign off status: Pending * Provider: Jessica Bhagat MD Date: 09/02/2023 Generated for Jean Carlos martines/Laurent/Roxaneitting on: 08:41 AM EDT
--- OUTSIDE RECORDS SUMMARY | 2025-05-27 08:42 | XMS_ITS | Patient Health Record ---
Author Organization [facility] Address [address] [place] [address] Care Team Providers Care Tractor Operator Name Role Phone Robby (RETIRED) Ulysses CANTRELL Primary Care Provider Unavailable Keagan Bhagat Jr Unavailable Allergies Allergen (clinical drug ingredient) Drug/Non Drug Allergy documented on EMR Reaction Allergy Type Onset Date Status peanut allergenic extract Peanut (Diagnostic) Unknown Drug Allergy Active Chocolate Concentrate Unknown Drug Allergy Active Results Component Value Reference Range Notes Pathology Reviewed date:07/06/2024 08:08:06 AM Interpretation: Performing Lab:[facility], [address] [place] [phone] Notes/Report: Reason For Referral No Information Medications [...] Problem Status W/U Status Risk Notes Problem 538197023 Colon cancer screening (Z12.11) Active confirmed Problem 360283083 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 Problem 72640883 Oropharyngeal dysphagia (R13.12) Active confirmed Problem Esophageal reflux finding (106031129) Gastroesophageal reflux (K21.9) Active confirmed Problem Dumont's esophagus (333241145) Dumont''s esophagus without dysplasia (K22.70) Active confirmed Problem 040605955 Gastroesophageal reflux disease, unspecified whether esophagitis present (K21.9) Active confirmed Vital Signs Temperature 97.1 degrees Fahrenheit 06/11/2024 Blood pressure diastolic 72 mm Hg 06/11/2024 Height 60 in 06/11/2024 Blood pressure systolic 118 mm Hg 06/11/2024 Weight 169 lb 4 oz lbs 06/11/2024 BMI 33.05 kg/m2 06/11/2024 Encounters Encounter Location Date Provider Diagnosis [facility] Outpatient [address] [place] [id number] 07/03/2024 Keagan Bhagat Jr Dumont''s esophagus without dysplasia K22.70 [facility] [address] [place] [phone] 06/11/2024 Keagan Bhagat Jr Dumont's esophagus without dysplasia K22.70 [facility] [address] [facility] [address] [place] [phone] 07/06/2024 Keagan Bhagat Jr Assessments Encounter Date [...] Insured Coverage Start Date Coverage End Date [employer] [address] [place] [phone] [id number] ISIDRO SIMMONS Self - patient is the [...]
[2025-05-30 10:49] LABS: Levetiracetam Keppra 7.4 mcg/mL (6.0-46.0)
== END 2025-05-27 08:20 | disposition home or self-care (01) ==
LOC: HO.HMGCLDS 08:19
PROVIDERS: PCP Internal Medicine; Visit Provider Registered Nurse
DX: G40.909 Epilepsy, unspecified, not intractable, without status epilepticus (principal)
CPT/HCPCS: 36415; 80177; 80185

== ENCOUNTER 2025-06-04 08:40 | Outpatient (REF) | payer OTHER, SELFPAY ==
--- OUTSIDE RECORDS SUMMARY | 2024-07-03 07:00 | XMS_ITS ---
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 Encounters Encounter Location Date Provider Diagnosis [facility] Outpatient [address] [place], [place] [phone] 07/03/2024 Keagan Bhagat Jr Hurtado''s esophagus without dysplasia K22.70 Assessments Encounter Date Diagnosis (ICD Code) Assessment Notes Treatment Notes Treatment Clinical Notes Section Notes 07/03/2024 Hurtado''s esophagus without dysplasia (ICD-10 - K22.70) Plan Of Treatment No Information Progress Notes * ISIDRO SIMMONS LDOB:[birth year] (65 yo F)Acc No.[id number]:07/03/2024 EGD/MAC Patient: ISIDRO ANNE Provider: Jessica Bhagat MD :1960 A ge:64 Y S ex:Female Date:07/03/2024 Address:[address] [id number] Pcp:Ulysses Bustamante (RETIRED) MD Subjective: * Chief [...] 09/02/2023 Generated for Jean Carlos martines/Laurent/Roxaneitting on: 09:06 AM EDT
--- OUTSIDE RECORDS SUMMARY | 2025-06-04 09:06 | XMS_ITS | Patient Health Record ---
Author Organization [facility] Address [address] [place] [address] Care Team Providers Care File Clerk Name Role Phone Robyb (RETIRED) Ulysses CANTRELL Primary Care Provider Unavailable Keagan Bhagat Jr Unavailable Allergies Allergen (clinical drug ingredient) Drug/Non Drug Allergy documented on EMR Reaction Allergy Type Onset Date Status peanut allergenic extract Peanut (Diagnostic) Unknown Drug Allergy Active Chocolate Concentrate Unknown Drug Allergy Active Results Component Value Reference Range Notes Pathology Reviewed date:07/06/2024 08:08:06 AM Interpretation: Performing Lab:[facility], [address] [place] [phone] Notes/Report: Reason For Referral No Information Medications Medication SIG (Take, Route, Frequency, Duration) Notes Start Date End Date Status Omeprazole 40 MG TAKE 1 CAPSULE BY MOUTH EVERY DAY 30 MINUTES BEFORE MORNING MEAL; Duration: 90 Active Alendronate Sodium 70 MG Oral; Duration: 84 Active Multi For Her 50+ - as directed Orally 12/16/2021 Active levETIRAcetam 1000 MG Oral; Duration: 90 500 mg x 2 a day Active Phenytoin Sodium Extended 100 MG Oral; Duration: 90 200 mg twice a day Active Atorvastatin Calcium 20 MG 1 tablet Orally Once a day; Duration: 30 day(s) Active Immunizations Vaccine Route Administration [...] Problem Status W/U Status Risk Notes Problem Colon cancer screening (562814749) Colon cancer screening (Z12.11) Active confirmed Problem Dumont's esophagus (861654391) 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) Active confirmed Problem Oropharyngeal dysphagia (48405816) Oropharyngeal dysphagia (R13.12) Active confirmed Problem Esophageal reflux finding (586967218) Gastroesophageal reflux (K21.9) Active confirmed Problem Dumont's esophagus (224996798) Dumont''s esophagus without dysplasia (K22.70) Active confirmed Problem Gastroesophageal reflux disease (029479755) Gastroesophageal reflux disease, unspecified whether esophagitis present (K21.9) Active confirmed Vital Signs Temperature 97.1 degrees Fahrenheit 06/11/2024 Blood pressure diastolic 72 mm Hg 06/11/2024 Height 60 in 06/11/2024 Blood pressure systolic 118 mm Hg 06/11/2024 Weight 169 lb 4 oz lbs 06/11/2024 BMI 33.05 kg/m2 06/11/2024 Encounters Encounter Location Date Provider Diagnosis [facility] Outpatient [address] [place] [id number] 07/03/2024 Keagan Bhagat Jr Dumont''s esophagus without dysplasia K22.70 [facility] [address] [place] [phone] 06/11/2024 Keagan Bhagat Jr Dumont's esophagus without dysplasia K22.70 [facility] [address] [place] [phone] 07/06/2024 Keagan Bhagat Jr Assessments Encounter Date [...] Insured Coverage Start Date Coverage End Date [place] [employer] [address] [place] [phone] [id number] ISIDRO SIMMONS Self - patient is the [...]
== END 2025-06-04 08:41 | disposition home or self-care (01) ==
LOC: HO.HMGCLDS 08:40
PROVIDERS: Absent Provider Registered Nurse; PCP Physician Assistant Medical; Visit Provider Physician Assistant Medical
DX: G40.909 Epilepsy, unspecified, not intractable, without status epilepticus (principal)
CPT/HCPCS: 36415; 80185

== ENCOUNTER 2025-06-11 08:48 | Outpatient (REF) | payer OTHER, SELFPAY ==
--- OUTSIDE RECORDS SUMMARY | 2024-07-03 07:00 | XMS_ITS ---
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 Encounters Encounter Location Date Provider Diagnosis [facility] [place] [address], [place] [phone] 07/03/2024 Keagan Bhagat Jr Hurtado''s esophagus without dysplasia K22.70 Assessments Encounter Date Diagnosis (ICD Code) Assessment Notes Treatment Notes Treatment Clinical Notes Section Notes 07/03/2024 Hurtado''s esophagus without dysplasia (ICD-10 - K22.70) Plan Of Treatment No Information Progress Notes * ISIDRO SIMMONS LDOB:[birth year] (65 yo F)Acc No.[id number]:07/03/2024 EGD/MAC Patient: ISIDRO ANNE Provider: Jessica Bhagat MD :1960 A ge:64 Y S ex:Female Date:07/03/2024 Address:[address] [id number] Pcp:Ulysses Bustamante (RETIRED) MD Subjective: * Chief [...] 09/02/2023 Generated for Jean Carlos martines/Laurent/Roxaneitting on: 09:13 AM EDT
--- OUTSIDE RECORDS SUMMARY | 2025-06-11 09:13 | XMS_ITS | Patient Health Record ---
Author Organization [facility] Address [address] [place] [address] Care Team Providers Care Traffic Engineering Director Name Role Phone Robby (RETIRED) Ulysses CANTRELL Primary Care Provider Unavailable Keagan Bhagat Jr Unavailable [phone] Allergies Allergen (clinical drug ingredient) Drug/Non Drug Allergy documented on EMR Reaction Allergy Type Onset Date Status peanut allergenic extract Peanut (Diagnostic) Unknown Drug Allergy Active Chocolate Concentrate Unknown Drug Allergy Active Results Component Value Reference Range Notes Pathology Reviewed date:07/06/2024 08:08:06 AM Interpretation: Performing Lab:[facility], [address] [place] [phone] Notes/Report: Reason For Referral No Information Medications [...] Status Risk Notes Problem Colon cancer screening (862732349) Colon cancer screening (Z12.11) Active confirmed Problem Dumont's esophagus (572631288) 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) Active confirmed Problem Oropharyngeal dysphagia (94747460) Oropharyngeal dysphagia (R13.12) Active confirmed Problem Esophageal reflux finding (484691831) Gastroesophageal reflux (K21.9) Active confirmed Problem Dumont's esophagus (029834814) Dumont''s esophagus without dysplasia (K22.70) Active confirmed Problem Gastroesophageal reflux disease (073615758) Gastroesophageal reflux disease, unspecified whether esophagitis present (K21.9) Active confirmed Vital Signs Temperature 97.1 degrees Fahrenheit 06/11/2024 Blood pressure diastolic 72 mm Hg 06/11/2024 Height 60 in 06/11/2024 Blood pressure systolic 118 mm Hg 06/11/2024 Weight 169 lb 4 oz lbs 06/11/2024 BMI 33.05 kg/m2 06/11/2024 Encounters Encounter Location Date Provider Diagnosis [facility] Outpatient [address] [place] [id number] 07/03/2024 Keagan Bhagat Jr Dumont''s esophagus without dysplasia K22.70 [facility] [address] [place] [phone] 06/11/2024 Keagan Bhagat Jr Dumont's esophagus without dysplasia K22.70 [facility] [address] [place] [phone] 07/06/2024 Keagan Bhagat Jr Assessments Encounter Date [...] Insured Coverage Start Date Coverage End Date [place] [employer] [address] [place] [phone] [id number] ISIDRO SIMMONS Self - patient is the [...]
== END 2025-06-11 08:49 | disposition home or self-care (01) ==
LOC: HO.HMGCLDS 08:48
PROVIDERS: PCP Internal Medicine; Visit Provider Registered Nurse
DX: G40.909 Epilepsy, unspecified, not intractable, without status epilepticus (principal)
CPT/HCPCS: 36415; 80185

== ENCOUNTER 2025-07-11 11:19 | Emergency (ER) | payer MEDICAID, SELFPAY ==
--- OUTSIDE RECORDS SUMMARY | 2024-07-03 06:00 | XMS_ITS ---
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 Encounters Encounter Location Date Provider Diagnosis [facility] Outpatient [address] [place], [place] [phone] 07/03/2024 Keagan Bhagat Jr Hurtado''s esophagus without dysplasia K22.70 Assessments Encounter Date Diagnosis (ICD Code) Assessment Notes Treatment Notes Treatment Clinical Notes Section Notes 07/03/2024 Hurtado''s esophagus without dysplasia (ICD-10 - K22.70) Plan Of Treatment No Information Progress Notes * ISIDRO SIMMONS LDOB:[birth year] (65 yo F)Acc No.[id number]:07/03/2024 EGD/MAC Patient: ISIDRO ANNE Provider: Jessica Bhagat MD :1960 A ge:64 Y S ex:Female Date:07/03/2024 Address[address] [id number] Pcp:Ulysses Bustamante (RETIRED) MD Subjective: * Chief Complaints: * B arrett's Assessment: * Assessment: 1. B arrett''s esophagus without dysplasia - K22.70 (Primary) Plan: * Procedure Codes: 4 3239 UPPER GI ENDOSCOPY, BIOPSY Billing Information: * Procedure Codes: 84572 UPPER GI ENDOSCOPY, BIOPSY. * The named appointment provid er may or may not be the originator of this progress note, and it is not deemed complete until electronically signed by the appointment provider. Sign off status: Pending * Provider: Jessica Bhagat MD Date: 09/02/2023 Generated for Jean Carlos martines/Laurent/Eriksmitting on: 09/10/2024 06:51 PM EST
--- NOTE | ~2025-07-11 | CT_ITS ---
EXAMINATION: CT CERVICAL SPINE WITHOUT CONTRAST CLINICAL INFORMATION: Seizure, fall, neck clearance. COMPARISON: 07/08/2021. TECHNIQUE: Spiral CT imaging of the cervical spine performed in axial plane without contrast. Multiplanar reformatted images were constructed from the axial data set. This CT examination was performed using dose optimization techniques as appropriate, variously including the following: *Automated exposure control *Adjustment of mA and/or kV according to patient size (this includes techniques or standardized protocols for targeted exams where dose is matched to indication/reason for exam; i.e. extremities or head) *Use of iterative reconstruction technique FINDINGS: CORONAL ALIGNMENT: -Normal. SAGITTAL ALIGNMENT: -Normal. There is no evidence of traumatic subluxation. C1-C2 AND CRANIOCERVICAL JUNCTION: -Intact and normally aligned. There are are moderate degenerative changes in the anterior atlantoaxial joint. VERTEBRAL BODIES AND FACETS: -There is no fracture, compression deformity, or evidence of traumatic subluxation. There is no suspicious bone lesion. -There is normal facet alignment bilaterally. There are mild multilevel degenerative hypertrophic facet changes. DISCS: -Mild diffuse disc degeneration is present, most significant at C5-6. CENTRAL CANAL: -No evidence of high-grade central canal narrowing or large disc herniation allowing for modality limitations. PREVERTEBRAL AND PARAVERTEBRAL SOFT TISSUES: -There is no prevertebral or paravertebral soft tissue swelling, or abnormal fluid collection. -The thyroid is normal. -There is no mass or abnormal lymphadenopathy within the neck. LUNG APICES: -Clear bilaterally. CT/CT cervical spine wo IV con IMPRESSION: 1. No CT evidence of acute cervical spine fracture or injury. Electronically signed by: Demar Reyes MD 07/11/2025 02:11 PM [facility]
--- NOTE | ~2025-07-11 | CT_ITS ---
EXAMINATION: CT HEAD WITHOUT CONTRAST CLINICAL INFORMATION: s/p seizure, fall and head injury COMPARISON: July 19, 2022 TECHNIQUE: Contiguous axial imaging was performed from the skull base to vertex without intravenous administration of contrast. This CT examination was performed using dose optimization techniques as appropriate, variously including the following: *Automated exposure control *Adjustment of mA and/or kV according to patient size (this includes techniques or standardized protocols for targeted exams where dose is matched to indication/reason for exam; i.e. extremities or head) *Use of iterative reconstruction technique FINDINGS: There is no acute ischemic change. There is no intracranial hemorrhage. There is no mass-effect or midline shift. Basal cisterns and ventricles are within normal limits for age/cerebral volume. Orbits are symmetrical and unremarkable. Paranasal sinuses and mastoid air cells are pneumatized. There are no bony abnormalities. CT/CT head/brain wo IV con IMPRESSION: No acute intracranial abnormality. Electronically signed by: Paresh Bertrand MD 07/11/2025 02:12 PM [facility]
[2025-07-11 11:27] VITALS: BP 105/55; BP 113/84; PULSE 72; PULSE 90; RESP 16; TEMP 37; O2SAT 97; O2SAT 99; BMI 35.5
[2025-07-11 11:48] VITALS: BP 105/55; PULSE 72; RESP 16; TEMP 37; O2SAT 99
[2025-07-11 11:58] LABS: MANUAL DIFF FLAG NO
[2025-07-11 12:07] LABS: Hematocrit 44.0 % (37.0-47.0); Hemoglobin 15.0 g/dl (12.0-16.0); Imm Gran Abs Auto 0.02 X10*3/uL (0.00-0.03); Imm Gran Pct Auto 0.4 % (0.0-0.4); Lymphocytes Absolute Auto 1.0 X10*3/uL (1.2-4.9); Mean Corpuscular HGB Conc 34.1 g/dl (31.0-35.0); Mean Corpuscular Hemoglobin 30.4 pg (27.0-33.0); Mean Corpuscular Volume 89.1 fL (80.0-98.0); NRBC Abs Auto 0.000 X10*3/uL (0.0-0.012); NRBC Pct Auto 0.0 /100WBC (0.0-0.2); Platelet Count 195 X10*3/uL (160-400); Red Blood Count 4.94 X10*6/uL (4.20-5.50); White Blood Count 4.7 X10*3/uL (4.8-10.8)
[2025-07-11 13:21] LABS: Alanine Aminotransferase 22 U/L (0-31); Albumin Level 4.4 g/dL (3.5-5.0); Alkaline Phosphatase 58 U/L (39-117); Anion Gap 14 (12-20); Aspartate Amino Transferase 26 U/L (5-31); Blood Urea Nitrogen 15 mg/dL (9-16); Calcium 9.3 mg/dL (8.4-10.2); Carbon Dioxide 26 mmol/L (22-29); Chloride 105 mmol/L (96-108); Creatinine Clr Calc Pharmacy 71.1; Estimated Glomerular Filt Rate > 60; Potassium 5.3 mmol/L (3.3-5.1); Sodium 140 mmol/L (135-145); Total Protein 7.6 g/dL (6.5-8.0)
--- NOTE | 2025-07-11 13:29 | ED.SEIZURE ---
HPI - Seizure General Chief Complaint: Seizure Stated Complaint: UNWIT SZ,CHANGE IN MED DOSING Time Seen by Provider: 07/11/25 13:20 Source: patient, EMS and old records reviewed Mode of arrival: EMS Limitations: no limitations History of Present Illness ED Provider: DR. Abreu HPI Narrative: a 65-year-old female with past medical history significant for seizure controlled with Keppra 500 mg b.i.d. and Dilantin 100 mg b.i.d. was recently adjusted by her neurologist from 200 mg b.i.d. to 100 mg b.i.d. due to supratherapeutic level of Dilantin. Patient had seizure episode after she had a shower patient was standing when she had the seizure and fall down hitting her head on the ground witnessed by family member at home of about 30 seconds of seizure followed by a period of confusion and postictal. Patient feels headache, no neck pain, no weakness, no numbness, no CP, no SOB, no abdominal pain. Seizure History: Yes (On Keppra and Dilantin) Place: Home Related Data Home Medications ?Medication ?Instructions ?Recorded ?Confirmed atorvastatin 20 mg tablet 1 tab PO DAILY 12/24/21 05/20/25 omeprazole 40 mg capsule,delayed 40 mg PO QAM 03/23/22 05/20/25 release Previous Rx's ?Medication ?Instructions ?Recorded levetiracetam 500 mg tablet 500 mg PO BID 90 days #180 tabs 04/29/25 phenytoin sodium extended 100 mg 200 mg (2 x 100 mg) PO BID 90 days 04/29/25 capsule (Dilantin Extended) #360 caps doxycycline monohydrate 100 mg 100 mg PO BID 7 days #14 tabs 05/20/25 tablet Allergies Allergy/AdvReac Type Severity Reaction Status Date / Time peanut Allergy Severe Anaphylaxis Verified 07/11/25 11:30 chocolate flavor Allergy Unknown Unknown Verified 07/11/25 11:30 amoxicillin (From Augmentin) AdvReac Abdominal Verified 07/11/25 11:30 Pain clavulanic acid (From AdvReac Abdominal Verified 07/11/25 11:30 Augmentin) Pain Review of Systems Review of Systems: All other systems are reviewed and are negative Constitutional: Reports as per HPI and Reports no additional constitutional complaints Eyes: Reports as per HPI and Reports no additional eye complaints Reports system reviewed and no additional complaints, except as documented Cardiovascular: Reports as per HPI and Reports no additional cardiovascular complaints Respiratory: Reports as per HPI and Reports no additional respiratory complaints Gastrointestinal: Reports as per HPI and Reports no additional gastrointestinal complaints Genitourinary: Reports no additional female genitourinary complaints Musculoskeletal: Reports no additional musculoskeletal complaints Skin/Breast: Reports system reviewed and no additional complaints, except as docu Psychiatric: Reports no additional psychiatric complaints Endocrine: Reports no additional endocrine complaints Hematologic/Lymphatic: Reports no additional hematologic/lymphatic complaints Allergic/Immunologic: Reports no additional allergic/immunologic complaints Reports system reviewed and no additional complaints, except as documented and Reports Abnormal speech present FOR[facility] Past Medical History Medical History Upper respiratory infection Hematuria Hyperlipidemia LDL goal <100 Osteopenia Leukopenia Thrombocytopenia Cough History of mammogram (~12/24/24) History of seizures Microscopic hematuria GERD (gastroesophageal reflux disease) History of pulmonary embolus (PE) Elevated cholesterol Hip fracture, right Seizure Osteoporosis Surgical History History of endoscopy (~12/31/21) History of surgery on wrist Hx of knee surgery History of esophagogastroduodenoscopy (EGD) History of colonoscopy (~12/31/21) H/O: hysterectomy History of hip surgery History of cholecystectomy Family History Family History Mother Diabetes CHF (congestive heart failure) COPD (chronic obstructive pulmonary disease) Father Stroke Social History Social History Housing: Apartment Are you a primary campground caretaker to a significant other at home: No Do you presently have visiting nurse or other home services: No Unable to assess alcohol history related to: Unknown Alcohol intake: current Alcohol intake frequency: holidays/special occasions only Patient Tobacco Use Status: Never used Tobacco Use of substances other than those prescribed or required for medical reasons: Unknown Advance Directives: Yes Advance Directives on File: Yes Advance Directives Date on File: 07/09/21 service: No Current occupational status: employed and unemployed Cognitive needs: No Hearing needs: No Vision needs: Yes (reading glass/cheaters) Physical Exam Vital Signs: Vital Signs: Last Vital Signs Temp 98.1 F 07/11/25 14:14 Pulse 78 07/11/25 14:14 Resp 16 07/11/25 14:14 BP 103/55 L 07/11/25 14:14 Pulse Ox 96 07/11/25 14:14 O2 Del Method Room Air 07/11/25 14:14 BMI result Body Mass Index 35.5 Vital signs have been reviewed and appear to be correct. Blood pressure elevated. Heart rate normal. Respiratory rate normal. Temperature normal. Oxygen saturation normal. Appearance: Alert. Oriented X3. No acute distress. Head: Normal external exam. Normocephalic. Atraumatic. No Blanca signs noted. No raccoon eyes noted Eyes: PERRLA. EOMI. Conjunctiva and sclera normal. Eyelids normal. ENT: TM's Normal. Pharynx normal. Uvula midline. Moist mucous membranes. No trismus noted. No drooling noted. No muffled voice noted. Neck: Normal inspection. Neck supple. FROM. No adenopathy. Thyroid Normal. No meningeal signs. No neck mass noted. CVS: Normal heart rate and rhythm. Heart sound normal. No murmurs noted. Pulses normal throughout. Respiratory: No respiratory distress. Painless inspiration. Breath sounds normal. No wheezes/rales/rhonchi noted. Chest nontender. No accessory muscle usage noted or decreased air movement noted. Abdomen: Soft and nontender. Bowel sounds normal in all 4 quadrants. No distention noted. No organomegaly noted. No visible injury noted. Back: No CVA tenderness. Full range of motion noted. Skin: Skin warm and dry. Normal skin color. Normal skin turgor. No rashes/lesions/lacerations noted. Extremities: No lower extremity edema. Extremities exhibit normal range of motion. Extremities nontender. Neuro: Mental status: Normal attention, orientation, memory, and affect. Cranial nerves: Pupils are equal, round and reactive to light, EOMI, visual love are fall, face is symmetric, facial sensations are normal. Motor examination normal muscle tone, strength to 4 extremities. DTR are +2, planter's are flexor. Sensory exam; normal coordination, no ataxia, gait stable. Cerebellar exam: Cgccin-qt-pdsk and jysq-td-ljni is normal. Extrapyramidal system: No tremors, no rigidity with normal facial expressions. Pronator drift not present Course Reevaluation(s) Reevaluation #1: 65-year-old female history of seizure had 1 seizure today. Phenytoin level is 22.4 which is supratherapeutic patient has no symptoms or side-effect from phenytoin. Keppra level is pending but patient assure compliance of 500 mg b.i.d.. Head/C-spine CT are unremarkable. Patient is at her baseline mentation no confusion. Patient is safe to be discharged home. Time: 14:33 Medical Decision Making Differential Diagnosis Differential Diagnoses: The differential diagnosis associated with the presentation includes ( Seizure, subtherapeutic antiseizure medication, electrolyte derangement, intracranial bleed.) Admission/Observation Consideration of admission/observation: Escalation of care including admission/observation considered Lab Data MDM Lab Attestation statement: I reviewed the patient's lab results. 07/11/25 11:55 07/11/25 14:07 Labs: Lab Results 07/11/25 07/11/25 07/11/25 Range/Units 11:55 12:42 14:07 WBC 4.7 L (4.8-10.8) X10*3/uL RBC 4.94 (4.20-5.50) X10*6/uL Hgb 15.0 (12.0-16.0) g/dl Hct 44.0 (37.0-47.0) % MCV 89.1 (80.0-98.0) fL MCH 30.4 (27.0-33.0) pg MCHC 34.1 (31.0-35.0) g/dl RDW 13.0 (11.0-16.0) % Plt Count 195 D (160-400) X10*3/uL MPV 10.2 (9.4-12.3) fL Immature Gran % (Auto) 0.4 (0.0-0.4) % Neut % (Auto) 72.0 (45-73) % Lymph % (Auto) 21.2 (20-40) % [place] % (Auto) 5.6 (2-11) % Eos % (Auto) 0.6 (0-4) % Baso % (Auto) 0.2 (0-2) % Lymph # (Auto) 1.0 L (1.2-4.9) X10*3/uL [place] # (Auto) 0.3 (0.1-1.2) X10*3/uL Eos # (Auto) 0.0 (0.0-0.4) X10*3/uL Baso # (Auto) 0.0 (0.0-0.2) X10*3/uL Abs Immat Gran (auto) 0.02 (0.00-0.03) X10*3/uL Absolute Neuts (auto) 3.4 (2.0-8.3) x10*3/uL Absolute Nucleated RBC 0.000 (0.0-0.012) X10*3/uL Nucleated RBC % (auto) 0.0 (0.0-0.2) /100WBC Sodium 140 (135-145) mmol/L Potassium 5.3 H D 4.9 (3.3-5.1) mmol/L Chloride 105 (96-108) mmol/L Carbon Dioxide 26 (22-29) mmol/L Anion Gap 14 (12-20) BUN 15 (9-16) mg/dL Creatinine 0.77 (0.5-1.4) mg/dL Estim Creat Clear Calc 71.1 Estimated GFR > 60 Random Glucose 99 (60-115) mg/dL Calcium 9.3 (8.4-10.2) mg/dL Total Bilirubin 0.3 (0.0-1.0) mg/dL AST 26 (5-31) U/L ALT 22 (0-31) U/L Alkaline Phosphatase 58 (39-117) U/L Total Creatine Kinase 76 (26-140) U/L Total Protein 7.6 (6.5-8.0) g/dL Albumin 4.4 (3.5-5.0) g/dL Phenytoin 22.4 H (10.0-20.0) ug/mL Independent Interpretation I performed an independent interpretation of an: CT Scan ( Head/ C-spine: No acute intracranial or cervical spine injury.) Radiology Impression Discussion of test interpretation with radiology: I have reviewed the radiologist's reading. Discharge Plan Discharge Clinical Impression: Epileptic seizure Patient Disposition: Home, Self-Care Instructions: Recurrent Seizures in Adults (ED) Additional Instructions: Do not drive cars until cleared by neurologist. Continue take the medicine as prescribed. : Dr. Jenkins and make an appointment for follow-up. Prescriptions: No Action levetiracetam 500 mg tablet 500 mg PO BID 90 Days Qty: 180 1RF phenytoin sodium extended [Dilantin Extended] 100 mg capsule 200 mg PO BID 90 Days Qty: 360 1RF atorvastatin 20 mg tablet 1 tab PO DAILY omeprazole 40 mg capsule,delayed release(DR/EC) 40 mg PO QAM doxycycline monohydrate 100 mg tablet 100 mg PO BID 7 Days Qty: 14 0RF Referrals: Oscar Vyas MD [Primary Care Provider, Internal Medicine] Juan Antonio Jenkins MD [Physician, Neurology] Print Language: Welsh
[2025-07-11 14:14] VITALS: BP 103/55; PULSE 78; RESP 16; TEMP 36.7; O2SAT 96
[2025-07-11 14:28] LABS: Potassium 4.9 mmol/L (3.3-5.1)
[2025-07-11 14:59] VITALS: BP 103/55; PULSE 71; RESP 15; TEMP 36.7; O2SAT 95
--- OUTSIDE RECORDS SUMMARY | 2025-07-11 18:51 | XMS_ITS | Patient Health Record ---
Author Organization [facility] Address [address] [place] [id number] Care Team Providers Care Chef Head Name Role Phone Robby (RETIRED) Ulysses CANTRELL Primary Care Provider Unavailable Keagan Bhagat Jr Unavailable [phone] Allergies Allergen (clinical drug ingredient) Drug/Non Drug Allergy documented on EMR Reaction Allergy Type Onset Date Status Chocolate Concentrate Unknown Drug Allergy Active peanut allergenic extract Peanut (Diagnostic) Unknown Drug Allergy Active Reason For Referral No Information Medications Medication SIG (Take, Route, Frequency, Duration) Notes Start Date End Date Status Omeprazole 40 MG Capsule Delayed Release TAKE 1 CAPSULE BY MOUTH EVERY DAY 30 MINUTES BEFORE MORNING MEAL; Duration: 90 Active Alendronate Sodium 70 MG Tablet Oral; Duration: 84 Active Multi For Her 50+ - Tablet as directed Orally 12/16/2021 Active levETIRAcetam 1000 MG Tablet Oral; Duration: 90 500 mg x 2 a day Active Phenytoin Sodium Extended 100 MG Capsule Oral; Duration: 90 200 mg twice a day Active Atorvastatin Calcium 20 MG Tablet 1 tablet Orally Once a day; Duration: 30 day(s) Active Immunizations Vaccine Route Administration Date Status Comme nts Influenza Unknown 09/09/2021 Administered Influenza Unknown 2022 Administered Influenza Unknown 06/11/2024 Refused Social History Tobacco Use: Social History Observation Description Date Details (start date - stop date) Never Smoker NA - NA Social History Drugs/Alcohol: Social Info Question Answer Notes Alcohol Screen Did you have a drink containing alcohol in the past year? 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) Active confirmed Problem Oropharyngeal dysphagia (34649824) Oropharyngeal dysphagia (R13.12) Active confirmed Problem Esophageal reflux finding (237360338) Gastroesophageal reflux (K21.9) Active confirmed Problem Dumont's esophagus (722841589) Dumont''s esophagus without dysplasia (K22.70) Active confirmed Problem Gastroesophageal reflux disease (271848497) Gastroesophageal reflux disease, unspecified whether esophagitis present (K21.9) Active confirmed Plan Of Treatment Pending Test Test Name Order Date XR BARIUM SWALLOW-ESOPHAGUS 06/02/2022 Future Test Test Name Order Date UPPER GI ENDOSCOPY 12/16/2021 UPPER GI ENDOSCOPY 06/11/2024 Insurance Providers Payer Name Payer Address Payer Phone Subscriber Number Group Number Insured Name Patient Relationship to Insured Coverage Start Date Coverage End Date [employer] [address] [place] [phone] [id number] ISIDRO SIMMONS Self - patient is the [...]
[2025-07-14 19:44] LABS: Levetiracetam Keppra 15.6 mcg/mL (6.0-46.0)
== END 2025-07-11 15:13 | disposition home or self-care (01) ==
PROVIDERS: Emergency Provider Emergency Medicine; PCP Internal Medicine
DX: G40.909 Epilepsy, unspecified, not intractable, without status epilepticus (principal); S09.90XA Unspecified injury of head, initial encounter; W19.XXXA Unspecified fall, initial encounter; Y93.9 Activity, unspecified; Y92.9 Unspecified place or not applicable; Y99.9 Unspecified external cause status
CPT/HCPCS: 36415; 70450; 72125; 80053; 80177; 80185; 82550; 84132; 85025; 99284

== ENCOUNTER → 2025-07-11 13:28 | Outpatient (BNV) | payer MEDICAID, SELFPAY | PROVIDERS: Emergency Provider Emergency Medicine; PCP Internal Medicine; Visit Provider Radiology Diagnostic Radiology | DX: S09.90XA Unspecified injury of head, initial encounter (principal); R56.9 Unspecified convulsions; Z04.3 Encounter for examination and observation following other accident | CPT/HCPCS: 70450; 72125 ==

== ENCOUNTER 2025-07-22 11:11 | Outpatient (REF) | payer MEDICAID, SELFPAY ==
--- NOTE | ~2025-07-22 | MM_ITS ---
EXAMINATION: DXA BONE DENSITY AXIAL HISTORY: M81.0 - Age-related osteoporosis without current pathological fracture TECHNIQUE: TapFwd Dual energy absorptiometry (DEXA) of the lumbar spine, total left hip, and femoral neck was performed. COMPARISON: Comparison is made with the prior examination dated September 2021. FINDINGS: The bone mineral density of the lumbar spine is 0.859 g/cm2, corresponding to a T-score of - 2.7, and a Z-score of -1.6. This is indicative of osteoporosis. This represents a BMD change of -0.2% compared to the prior exam. This is not statistically significant. The bone mineral density of the left total hip is 0.691 g/cm2, corresponding to a T-score of -2.5, and a Z-score of -1.7. This is indicative of osteoporosis. This represents a BMD change of 14.4% compared to the prior exam. This is statistically significant. The bone mineral density of the left femoral neck is 0.634 g/cm2, corresponding to a T-score of -2.9, and a Z-score of -1.8. This is indicative of osteoporosis. This represents a BMD change of 7.6 % compared to the prior exam. This is statistically significant. FRACTURE RISK: The FRAX index suggests a ten year probability of major osteoporotic fracture of 23.3%, and of hip fracture 6%. MM/XR DEXA axial skeleton IMPRESSION: Based on bone mineral density, and according to World Health Organization (WHO) criteria, the diagnosis is consistent with osteoporosis based on lowest T score of -2.9 in the left femoral neck. Treatment Recommendations: NOF guidelines recommend consideration for treatment in postmenopausal women and men age 50 and older presenting with the following: -A hip or vertebral (clinical or morphometric) fracture. -T-score less than or equal to -2.5 at the femoral neck or spine after appropriate evaluation to exclude secondary causes. -Low bone mass at the hip or spine and a 10-year fracture probability by FRAX of greater than or equal to 3% for hip fracture or greater than or equal to 20% for major osteoporotic fracture based on the [place] adapted WHO algorithm. Other Recommendations: All treatment decisions require clinical judgment and consideration of individual patient factors, including patient preferences, comorbidities, previous drug use, risk factors not captured in the FRAX model (e.g. frailty, falls, vitamin D deficiency, increased bone turnover, interval significant decline in bone density) and possible under or overestimation of fracture risk by FRAX. Additional medical evaluation for secondary cause of low bone mineral density may be appropriate. FUTURE SCAN RECOMMENDATION: People with diagnosed cases of osteoporosis or at high risk for fracture should have regular bone mineral density tests. For patients eligible for Medicare, routine testing is allowed once every 2 years. The testing frequency can be increased to one year for patients who have rapidly progressing disease, those who are receiving or discontinuing medical therapy to restore bone mass, or have additional risk factors. Statistically, 68% of repeat scans fall within 1 SD (+/- 0.010 g/cm2 for AP spine L1-L4) and 1 SD (+/- 0.012 g/cm2 for femur total) FRAX is a trademark of the [employer] [facility] [employer], a World Health Organization (WHO) Collaborating Center. Electronically signed by: Lia Baca MD 07/22/2025 12:05 PM [facility]
== END 2025-07-22 11:12 | disposition home or self-care (01) ==
LOC: HO.MAMMO 11:11
PROVIDERS: Visit Provider Physician Assistant Medical
DX: M81.0 Age-related osteoporosis without current pathological fracture (principal)
CPT/HCPCS: 77080

== ENCOUNTER → 2025-07-22 11:30 | Outpatient (BNV) | payer MEDICAID, SELFPAY | PROVIDERS: Visit Provider Radiology Diagnostic Radiology | DX: E28.39 Other primary ovarian failure (principal) | CPT/HCPCS: 77080 ==